=== PATIENT | male | born 1930 | race Caucasian/White ===

== ENCOUNTER 2016-11-02 08:58 | Inpatient (IN) | payer OTHER ==
[~2016-11-02] VITALS: Ht 172.7 cm; Wt 95.3 kg
[~2016-11-02 08:58] MED LIST: LEVAQUIN750 MG PO; PREDNISONE 20MG20 MG PO; ROBITUSSIN AC SY5 ML PO
--- NOTE | 2016-11-02 09:03 | NUR ---
PT PRESENTS TO ER C/O OF COUGH AND CONGESTION X 10 DAYS. PT STATES HE WAS SEEN BY PMD AND TREATED FOR PNA. PT STATES HE STILL IS NOT FEELING ANY BETTER
--- NOTE | 2016-11-02 09:24 | ED DYSPNEA/ASTHMA COMPLAINT ---
History of Present Illness General Chief Complaint: Upper Respiratory Sx/Fever Stated Complaint: COUGH AND CONGESTION X 10DAYS Source: patient, old records Exam Limitations: no limitations Reconcile Medications Cholecalciferol (Vitamin D3) (Vitamin D3) 1,000 UNIT CAPSULE 1,000 IU PO DAILY SUPPLEMENT (Reported) Levothyroxine Sodium 50 MCG TABLET 50 MCG PO DAILY THYROID (Reported) Lisinopril 40 MG TABLET 40 MG PO DAILY HTN (Reported) Tolterodine Tartrate (Detrol LA) 4 MG CAP.ER.24H 4 MG PO DAILY OVERACTIVE BLADDER (Reported) Warfarin Sodium 5 MG TABLET 5 MG PO DAILY "MY HEART" (Reported) Zolpidem Tartrate 10 MG TABLET 10 MG PO DAILY SLEEP (Reported) Triage Note: PT PRESENTS TO ER C/O OF COUGH AND CONGESTION X 10 DAYS. PT STATES HE WAS SEEN BY PMD AND TREATED FOR PNA. PT STATES HE STILL IS NOT FEELING ANY BETTER Triage Nurses Notes Reviewed? yes HPI: 85 YO MALE WITH HX OF AFIB, ON COUMADIN, PPM, 8W OF COUGH, SOB, TX FOR PNA AT ONSET OF SX 8W AGO. SINCE HE HAS HAD DRY COUGH, SOB, COUGH MEDS NO HELP. + SHIRLEY. NON SMOKER, NO CHEST PAIN. TACTILE FEVER. + WHEEZING. (BEVERLY HUNTLEY) Vital Signs & Intake/Output Vital Signs & Intake/Output Vital Signs Date Time Temp Pulse Resp B/P Pulse O2 O2 Flow FiO2 Ox Delivery Rate 11/02 1325 101.4 11/02 1321 100.9 83 18 138/108 11/02 1303 100.9 83 18 138/108 90 Room Air 11/02 1210 102.4 93 18 181/86 92 Nasal 2.0L Cannula 11/02 1209 102.4 11/02 1008 90 11/02 0936 86 Room Air 11/02 0904 98.9 120 24 144/80 86 Room Air Allergies Coded Allergies: Cephalosporins (Severe, RASH 11/02/16) amoxicillin (From Augmentin) (Severe, ANAPHYLAXIS 11/02/16) clavulanic acid (From Augmentin) (Severe, ANAPHYLAXIS 11/02/16) Penicillins (RASH 11/02/16) azithromycin (UNKNOWN 11/02/16) (KAL MIGUEL,GRACIE Newman) Past History Travel History Traveled to [place] past 21 day No Medical History Any Pertinent Medical History? see below for history Cardiovascular: AFIB, hypertension Pneumonia Vaccine: 07/29/04 Surgical History Surgical History: PPM Psychosocial History Who do you live with Spouse Services at Home None What is your primary language Yakut Tobacco Use: Never used Family History Hx Contributory? No (BEVERLY HUNTLEY) Review of Systems Review of Systems Constitutional: Reports: see HPI. EENTM: Reports: no symptoms. Respiratory: Reports: see HPI. Cardiovascular: Reports: no symptoms. GI: Reports: no symptoms. Genitourinary: Reports: no symptoms. Musculoskeletal: Reports: no symptoms. Skin: Reports: no symptoms. Neurological/Psychological: Reports: no symptoms. Hematologic/Endocrine: Reports: no symptoms. Immunologic/Allergic: Reports: no symptoms. All Other Systems: Reviewed and Negative (BEVERLY HUNTLEY) Physical Exam Physical Exam Respiratory: wheezing Comments: Well-developed well-nourished person in no acute distress HEENT: Normal EENT exam, extraocular motion intact, no nystagmus. Pupils equally round and reactive to light. Nose is atraumatic. Pharynx normal. No swelling or edema. Neck: Supple, no lymphadenopathy, normal range of motion without pain or tenderness Back: Nontender, no CVA tenderness. Full range of motion Cardiovascular: Regular rate and rhythms no murmurs, normal JVP Respiratory: Chest nontender. Mild tachypnea, decreased breath sounds, positive respiratory wheezing bilaterally Abdomen: Soft, nontender nondistended, no appreciable organomegaly. Normal bowel sounds. No ascites Extremity: 1+ lower extremity bilateral edema, no calf tenderness to palpation, normal and equal pulses. Neuro: Alert oriented x3, motor sensory normal, cranial nerves II through XII grossly intact. Skin: No appreciable rash on exposed skin, skin is warm and dry. Psych: Mood and affect is normal, memory and judgment is normal. Core Measures ACS in differential dx? Yes Severe Sepsis Present: Yes BC x2: Yes Lactic Acid x2: Yes IV ABX Broad Spectrum: Yes NS/LR Started: Yes Septic Shock Present: No (BEVERLY HUNTLEY) Progress Differential Diagnosis: asthma, AMI, altitude sickness, bronchitis, costochondritis, CHF, COPD, musculoskeletal pain, pericarditis, pulmonary embolism, pneumonia, pneumothorax, rib fracture, unstable angina Diagnostic Imaging: Viewed by Me: Radiology Read (INTEGUMENTARY). Discussed w/RAD: Radiology Read ( INTEGUMENTARY). CXR Impression: PATIENT: JUAN ANTONIO CARMONA PRESENT AGE: 85 PATIENT ACCOUNT NO: [id number] : 31 LOCATION: [facility] ORDERING PHYSICIAN: BEVERLY PERKINS SERVICE DATE: 11/02/16 EXAM TYPE: RAD - XRY-PORTABLE CHEST XRAY EXAMINATION: XR PORTABLE CHEST CLINICAL INFORMATION: Pneumonia COMPARISON: 10/10/2016 SHE IS NOW LIVING INTECHNIQUE: Portable view of the chest was obtained. FINDINGS: Right chest wall single-lead pacer remains unchanged. The lungs are well expanded. Increased hazy bibasilar opacity, right greater than left. Small right pleural effusion suspected. No edema. No pneumothorax. The cardiomediastinal silhouette is unchanged. Degenerative changes of the shoulders. IMPRESSION: Small right pleural effusion with increased hazy basilar opacities, right greater than left. This appearance could represent atelectasis or pneumonia. This is increased from prior. DICTATED BY: HORTENSIA MIGUEL,REECE DATE/TIME DICTATED:11/02/16957 INTRUSION ANALYST:СВЕТЛАНА DATE/TIME TRANSCRIBED:11/02/16957 Initial ED EKG: PACED , PVC'S, 86 BPM Rhythm Strip: PAC Comments: DuoNeb treatment given, blood cultures and lactic acid drawn. Patient reevaluated, breathing has improved, still with coughing and congestion and mild wheezing. His O2 sat is up to 90% on supplemental oxygen. He'll be given IV antibiotics, clindamycin as he has allergies to Rocephin and Zithromax, he is also given 125 mg of Cipro Medrol IV. He will require admission to the hospital for pneumonia/bronchitis, hypoxia (VITA PERKINS,BEVERLY) Plan of Care: Orders Procedure Date/time Status Heart Healthy Diet 11/02 D Active LOWER RESPIRATORY CULTURE 11/02 1219 Active LACTIC ACID 11/02 1212 Active MRSA SCREENING 11/02 1154 Active Admit to inpatient 11/02 1149 Active Misc Message 11/02 1147 Active ED Holding Orders 11/02 1147 Active Vital Signs 11/02 1147 Active Code Status 11/02 1147 Active RAPID VIRAL INFLUENZA A 11/02 1141 Complete Patient Data 11/02 1123 Active Add-on Test (ER Only) 11/02 1116 Active Add-on Test (ER Only) 11/02 1105 Active AEROSOL (GEN) 11/02 1008 Complete Intake & Output 11/02 0836 Active PROTHROMBIN TIME 11/02 0832 Complete TROPONIN LEVEL 11/02 929 Complete MAGNESIUM 11/02 929 Complete B-TYPE NATRIURETIC PEP (BNP) 11/02 929 Complete Saline Lock 11/02 911 Active BLOOD CULTURE 11/02 911 Active LACTIC ACID 11/02 911 Complete COMPREHENSIVE METABOLIC PANEL 11/02 911 Complete CBC WITHOUT DIFFERENTIAL 11/02 911 Complete EKG 11/02 905 Active Current Medications Sig/Emily Start time Last Medication Dose Stop Time Status Admin Warfarin Sodium 5 MG 1700 11/03 1700 AC (Coumadin) 11/03 1701 Levothyroxine Sodium 0.05 MG DAILY AC 11/03 0700 AC (Synthroid) Oxybutynin Chloride 5 MG BID 11/02 220 AC (Ditropan) Laboratory Tests 11/02/16 1238: Lactic Acid Pending 11/02/16 1105: PT 18.9 H, INR 1.81 H 11/02/16 0933: Troponin I Cancelled, Unk-X-Wtjgvfxedzx Pept Cancelled 11/02/16 0930: Anion Gap 14, Estimated GFR > 60, BUN/Creatinine Ratio 15.0, Glucose 126 H, Lactic Acid 2.1, Calcium 8.9, Magnesium 1.6, Total Bilirubin 0.8, AST 28, ALT 28 , Alkaline Phosphatase 62, Troponin I < 0.01, Nsu-Q-Jgeixieasbr Pept 1070 H, Total Protein 7.8, Albumin 4.3, Globulin 3.5, Albumin/Globulin Ratio 1.2, CBC w Diff NO MAN DIFF REQ, RBC 4.26 L, MCV 100.8 H, MCH 33.8 H, RDW 14.0, MPV 6.9 L, Gran % 66.4, Lymphocytes % 20.4 L, Monocytes % 9.1, Eosinophils % 3.7, Basophils % 0.4, Absolute Granulocytes 4.1, Absolute Lymphocytes 1.3, Absolute Monocytes 0.6, Absolute Eosinophils 0.2, Absolute Basophils 0, PUBS MCHC 33.5 Microbiology 11/02 1219 LOWER RESP: Respiratory Culture - ORD 11/02 1219 LOWER RESP: Gram Stain - ORD 11/02 1214 UPPER RESP: Surveillance Culture - RECD 11/02 1134 BLOOD: Blood Culture - RECD 11/02 1127 BLOOD: Blood Culture - RECD Comments: 11/02/2016 11:17:09 AM patient's case discussed with Dr. Barroso by me. Plan admission to telemetry in the patient's tachycardia upon presentation and frequent PVCs noted on EKG. Pneumonia versus congestive heart failure discussed. (KAL MIGUEL,GRACIE Newman) Departure Departure Disposition: STILL A PATIENT Condition: Stable Clinical Impression Primary Impression: Pneumonia Qualifiers: Pneumonia type: due to unspecified organism Laterality: right Lung location: lower lobe of lung Qualified Code: J18.9 - Pneumonia, unspecified organism Secondary Impressions: Bronchitis, Hypoxia Referrals: SARAH MIGUEL,JORI Landis (PCP/Family) Departure Forms: Customer Survey General Discharge Information Admission Note Spoke With: PAULINA SIMON MD Documentation of Exam: Documentation of any treatments & extenuating circumstances including Concerns Regarding Discharge (functional status, medication knowledge or non-compliance, living conditions, etc.) that warrant an admission rather than observation: Patient hypoxic, has been sick for approximately 8 weeks with cough and congestion, failed outpatient treatment requires admission, IV antibiotics, respiratory treatments, IV site Medrol, he has bronchitis and likely right lower lobe pneumonia. He has a slightly elevated lactic acid 2.1. He requires supplemental oxygen, he is a poor candidate for outpatient treatment. DW DR BOWDEN WHO CALLED FOR ADMISSION. (BEVERLY HUNTLEY) PA/DUB ROOM ENGINEER Co-Sign Statement Statement: ED Attending supervision documentation- [X] I saw and evaluated the patient. I have also reviewed all the pertinent lab results and diagnostic results. I agree with the findings and the plan of care as documented in the PA's/DUB ROOM ENGINEER's documentation. [] I have reviewed the ED Record and agree with the PA's/DUB ROOM ENGINEER's documentation. [] Additions or exceptions (if any) to the PAs/DUB ROOM ENGINEER's note and plan are summarized below: [] (KAL MIGUEL,GRACIE Newman) Critical Care Note Critical Care Note Critical Care Time: 30-74 min (40) (BEVERLY HUNTLEY)
--- NOTE | 2016-11-02 09:26 | NUR ---
RESP PAGED FOR TREATMENT AT THIS TIME
--- NOTE | 2016-11-02 09:41 | NUR ---
PT SITTING ON STRETCHER; RA SAT 84-86%. FREQUENT CONGESTED NON PRODUCTIVE COUGH NOTED. PT STATES THE PHLEGM SITS IN THE BACK OF HIS THROAT, "I GAG ON IT", BUT HE HAS BEEN UNABLE TO EXPECTORATE IT. STATES HE HAS HAD THESE SYMPTOMS X 3 WEEKS. ALSO C/O "ALL OVER BODY ACHES", DECREASED APPETITE/PO INTAKE AND INTERMITTENT FEVERS. LUNGS DIMINISHED IN ALL MOTLEY. PLACED ON 2L FOR COMFORT, SAT NOTED UP TO 96% AFTER COUGHING. PACER NOTED TO R TORSO. PACED ON MONITOR. IV EST, L WRIST. BLOODWORK SENT (LAV, SST, BLUE, TORRES, PINK) CHEST XRAY COMPLETED.
[2016-11-02 09:43] LABS: ABSOLUTE BASOPHIL COUNT 0 /CUMM (0.0-0.2); ABSOLUTE EOSINOPHIL COUNT 0.2 /CUMM (0.0-0.7); ABSOLUTE GRANULOCYTE CT 4.1 /CUMM (1.4-6.5); ABSOLUTE LYMPH COUNT 1.3 /CUMM (1.2-3.4); ABSOLUTE MONOCYTE COUNT 0.6 /CUMM (0.10-0.60); BASOPHIL % 0.4 % (0.0-2.0); EOSINOPHIL % 3.7 % (0-5); GRANULOCYTE % 66.4 % (42.2-75.2); MEAN CORPUSCULAR HGB 33.8 PG (27.0-31.0); MEAN CORPUSCULAR HGB CONC 33.5 G/DL (33.0-37.0); MEAN CORPUSCULAR VOLUME 100.8 FL (80.0-94.0); MEAN PLATELET VOLUME 6.9 FL (7.4-10.4); PLATELET COUNT 206 /CUMM (130-400); RED BLOOD CELL CT 4.26 /CUMM (4.70-6.10); WHITE BLOOD CELL COUNT 6.2 /CUMM (4.8-10.8)
--- NOTE | 2016-11-02 09:43 | NUR ---
NORMAL SALINE INITIATED, LESS THAN 100 ML INFUSED AND THEN D/ERICKA PER GREGORIO Jimenes IV HEPLOCKED AT THIS TIME.
--- NOTE | 2016-11-02 09:44 | NUR ---
RT PAGED FOR JIHAN CHOWDARY.
[2016-11-02] MEDS ORDERED: LEVOTHYROXINE50 MCG PO (09:49)
[2016-11-02] MEDS ORDERED: WARFARIN SODIUM5 M1 PO (09:49)
[2016-11-02] MEDS ORDERED: ZOLPIDEM TARTRA10 M1 PO (09:50)
[2016-11-02] MEDS ORDERED: DETROL LA4 M1 PO (09:51)
[2016-11-02] MEDS ORDERED: LISINOPRIL40 M1 PO (09:51)
[2016-11-02] MEDS ORDERED: VITAMIN D31000 UNI1 PO (09:53)
--- NOTE | 2016-11-02 09:53 | NUR ---
PER LAB, BLUE TOP AND SST NEED RE-DRAWS.
--- NOTE | 2016-11-02 10:04 | RADIOLOGY REPORT ---
EXAMINATION: XR PORTABLE CHEST CLINICAL INFORMATION: Pneumonia COMPARISON: 10/10/2016 TECHNIQUE: Portable view of the chest was obtained. FINDINGS: Right chest wall single-lead pacer remains unchanged. The lungs are well expanded. Increased hazy bibasilar opacity, right greater than left. Small right pleural effusion suspected. No edema. No pneumothorax. The cardiomediastinal silhouette is unchanged. Degenerative changes of the shoulders. IMPRESSION: Small right pleural effusion with increased hazy basilar opacities, right greater than left. This appearance could represent atelectasis or pneumonia. This is increased from prior.
--- NOTE | 2016-11-02 10:09 | NUR ---
RT AT THE BEDSIDE
--- NOTE | 2016-11-02 10:35 | NUR ---
SAT NOW 96% ON 2L. PT STATES THE BREATHING TX HELPED HIM AND HE IS COMFORTABLE NOW. FLUIDS INFUSING, 1ST LITER BOLUS, PER GREGORIO Thompson FOR ELEVATED LACTIC ACID (2.1)
[2016-11-02 11:27] LABS: PT 18.9 SEC (9.4-12.5)
--- NOTE | 2016-11-02 11:29 | NUR ---
FIRST SET OF BC DRAWN AND SENT TO LAB
--- NOTE | 2016-11-02 11:37 | NUR ---
BOTH SETS BC RECEIVED BY LAB.
--- NOTE | 2016-11-02 11:45 | NUR ---
MED WITH SOLU MEDROL AND CLINDAMYCIN PER MAR HOUSE STAFF AT BEDSIDE
--- NOTE | 2016-11-02 12:09 | History & Physical ---
ISELA BUTLER 11/02/16 1209: General Information and HPI MD Statement: I have seen and personally examined JUAN ANTONIO CARMONA and documented this H&P. The patient is a 85 year old M who presented with a patient stated chief complaint of [cough and difficulty breathing]. Source of Information: patient, old records Exam Limitations: patient was coughing throughout the interview History of Present Illness: Patient is 85 year old with PMH of HTN, ablation on Coumadin, permanent pacemaker came from home with chief complaint of difficulty breathing and cough. Patient states that the cough began 8 weeks ago, he went to his primary care physician Dr. messer and was given 5 day azithromycin prescription. Patient states that he felt no improvement after that and his cough worsened. Cough is dry, occurs in bouts, worsens with speaking. patient also reports that he experiences chills and fever although he did not measure it at home. Patient lives with his son who has similar complaints from the same time duration. Patient received a flu shot this season. He is a nonsmoker, has never been intubated. Recent echo from 2016 shows ejection fraction greater than 65%, patient follows Dr. Fox as his garnishment specialist his next appointment is due in 3 weeks. Review of systems negative Allergies/Medications Allergies: Coded Allergies: amoxicillin (From Augmentin) (Severe, ANAPHYLAXIS 11/02/16) clavulanic acid (From Augmentin) (Severe, ANAPHYLAXIS 11/02/16) Penicillins (RASH 11/02/16) Home Med list Cholecalciferol (Vitamin D3) (Vitamin D3) 1,000 UNIT CAPSULE 1,000 IU PO DAILY SUPPLEMENT (Reported) Levothyroxine Sodium 50 MCG TABLET 50 MCG PO DAILY THYROID (Reported) Lisinopril 40 MG TABLET 40 MG PO DAILY HTN (Reported) Tolterodine Tartrate (Detrol LA) 4 MG CAP.ER.24H 4 MG PO DAILY OVERACTIVE BLADDER (Reported) Warfarin Sodium 5 MG TABLET 5 MG PO DAILY "MY HEART" (Reported) Zolpidem Tartrate 10 MG TABLET 10 MG PO DAILY SLEEP (Reported) Compliance With Home Meds: GOOD Past History Travel History Traveled to [place] past 21 day No Medical History Cardiovascular: AFIB, hypertension, PPM Pneumonia Vaccine: 07/29/04 Surgical History Surgical History: PPM Past Family/Social History Family History Relations & Conditions if any MOTHER *No pertinent family history Relation not specified for: FH: hypertension Psychosocial History Where do you live? Home Who Do You Live With? child Services at Home: None Smoking Status: Former Smoker ETOH Use: occasional use Illicit Drug Use: denies illicit drug use Power of Clin Nurse Spec/HCP? yes Name of POA/HCP: SON Functional Ability ADLs Independent: dressing, eating, toileting, bathing. Ambulation: independent Review of Systems Review of Systems Constitutional: Reports: see HPI. Cardiovascular: Reports: see HPI. Respiratory: Reports: see HPI. GI: Denies: see HPI, abdominal pain, bloating, constipation, diarrhea, distention, bowel incontinence, melena, nausea, bloody stool, changes in stool, vomiting, steatorrhea. Genitourinary: Reports: see HPI. Exam & Diagnostic Data Last 24 Hrs of Vital Signs/I&O Vital Signs Date Time Temp Pulse Resp B/P Pulse O2 O2 Flow FiO2 Ox Delivery Rate 11/02 1210 102.4 93 18 181/86 92 Nasal 2.0L Cannula 11/02 1209 102.4 11/02 1008 90 11/02 0936 86 Room Air 11/02 0904 98.9 120 24 144/80 86 Room Air Physical Exam General Appearance Alert, Oriented X3, Cooperative, Mild Distress Skin No Rashes, No Breakdown HEENT Atraumatic Cardiovascular Normal S1, Normal S2, TACHYCARDIAC Lungs DEC BREATH SOUNDS RIGHT LUNG BASE Abdomen Soft, No Tenderness Extremities LOWER EXT NON PITTING EDEMA Last 24 Hrs of Labs/Lokesh: Laboratory Tests 11/02/16 1105: PT 18.9 H, INR 1.81 H 11/02/16 0933: Troponin I Cancelled, Atp-C-Nmscgsdcgsa Pept Cancelled 11/02/16 0930: Anion Gap 14, Estimated GFR > 60, BUN/Creatinine Ratio 15.0, Glucose 126 H, Lactic Acid 2.1, Calcium 8.9, Magnesium 1.6, Total Bilirubin 0.8, AST 28, ALT 28 , Alkaline Phosphatase 62, Troponin I < 0.01, Iks-U-Nfupaawobhn Pept 1070 H, Total Protein 7.8, Albumin 4.3, Globulin 3.5, Albumin/Globulin Ratio 1.2, CBC w Diff NO MAN DIFF REQ, RBC 4.26 L, MCV 100.8 H, MCH 33.8 H, RDW 14.0, MPV 6.9 L, Gran % 66.4, Lymphocytes % 20.4 L, Monocytes % 9.1, Eosinophils % 3.7, Basophils % 0.4, Absolute Granulocytes 4.1, Absolute Lymphocytes 1.3, Absolute Monocytes 0.6, Absolute Eosinophils 0.2, Absolute Basophils 0, PUBS MCHC 33.5 Microbiology 11/02 1219 LOWER RESP: Respiratory Culture - ORD 11/02 1219 LOWER RESP: Gram Stain - ORD 11/02 1214 UPPER RESP: Surveillance Culture - RECD 11/02 1134 BLOOD: Blood Culture - RECD 11/02 1127 BLOOD: Blood Culture - RECD Assessment/Plan Assessment: Patient is 85 year old male with PMH of hypertension, atrial fibrillation on Coumadin, permanent pacemaker came with a chief complaint of difficulty breathing and cough. Patient was given azithromycin 8 weeks ago by his primary care physician for a possible pneumonia. Patient has been febrile at home and experienced chills. His son is having similar complaints since the same time duration. Vitals Fever of 1 at 2.4, pulse 93, respiratory rate 18, blood pressure 181/86, pulse ox 92 on 2 L of nasal cannula Labs WBC 6.2, no bands, hemoglobin 14.4, platelets 206, sodium 136, potassium 4.3, creatinine 0.6, lactic acid 2.1, proBNP 1070 CXR Small right pleural effusion with increased hazy basilar opacities, right greater than left. This appearance could represent atelectasis or pneumonia. This is increased from prior. Assessment and plan, Will admit patient to telemetry floor for continus monitoring. Ceftriaxone and Azithroymine for his CAP, patient has tolerated Ceftriaxone and Azithromycin in the past Will obtain non contrast Chest CT and consult battery assembler as patients right sided pleural effusion is concerning for possible parapneumonic effision/ empyema. INR sub therapeutic today, will hold Warfarin for now as patient might need a pleural tap. Will obtain BC x2, lower resp culture, urine for strep and legionella antigen TRC nebs as needed. Patient does not have any prior dx of COPD so will hold off solumedrol. DVT ppx ALPS Pain pathyway mild tylenol, moderate toradol, severe 1 mg morphine q8 prn Patient is full code As Ranked By This Provider Problem List: 1. Pneumonia Qualifiers Pneumonia type: due to unspecified organism Laterality: right Lung location: lower lobe of lung Qualified Code: J18.9 - Pneumonia, unspecified organism Core Measures/Miscellaneous Acute Coronary Syndrome ACS Diagnosis: No Cerebrovascular Accident CVA/TIA Diagnosis: No Congestive Heart Failure CHF Diagnosis: No Venous Thromboembolism VTE Risk Factors: Age > 40 VTE Prophylaxis Ordered Inpt: Mechanical (ALPS/TEDS) No Mech VTE prophylaxis d/t: No contraindications No VTE Pharm Prophylaxis d/t: No contraindications VTE Diagnosis: No VTE Type: NONE VTE Confirmed by (Test): NONE Severe Sepsis Severe Sepsis Present: No Septic Shock Septic Shock Present: No Miscellaneous Documentation Attending Case Discussed With: Dr. Coby Dugan Primary Care Physician: JORI SMITH MD A Patient sees these Specialists as above Level of Patient Care: Telemetry COBY MALIK MD 11/02/16 1507: Attending MD Review Statement Attending Statement Attending MD Statement: examined this patient, discuss w/resident/PA/INFORMATION SYSTEMS CONSULTANT, agreed w/resident/PA/INFORMATION SYSTEMS CONSULTANT, discussed with family, discussed with nursing, discussed with case mgmt Attending Assessment/Plan: 85-year-old male past medical history of A. fib on Coumadin, pacemaker home for saw Dr. Smith his PCP on October 10 with cough and URI symptoms. At that point a chest x-ray was done which showed small right pleural effusion and he was prescribed a 5 day course of Zithromax. His symptoms have gotten progressively worse and he is coughing up a lot of stuff. Today he also has acute hypoxemic respiratory failure with a room air sat of 84-86%. His chest x-ray still shows the small effusions especially on the right-hand side. I am concerned and I hope this is not a parapneumonic effusion. My suspicion for empyema is low. We will give him IV ceftriaxone and Zithromax. He is tolerated cephalosporins fine in the past. We'll get blood cultures, sputum cultures, pneumococcal antigen in his urine and strep pneumo antigen. I will have pulmonary see him. And get a noncontrast chest CT to further clarify his effusion. If the effusion doesn't show anything that needs to be tapped I will continue his Coumadin. Will follow -up.
--- NOTE | 2016-11-02 12:09 | NUR ---
FLU SWAB SENT. MED WITH MUCINEX, TESSLON PEARLES AND TYLENOL PER DEC (TEMP 102.4) REMAINS 94% ON 2L. DENIES PAIN.
--- NOTE | 2016-11-02 12:17 | NUR ---
MRSA SWAB SENT. SAT 93% ON 2L.
--- NOTE | 2016-11-02 13:22 | NUR ---
PT MEDICATED WITH LICINOPRIL PER EMAR. TEMP 101.4 AT THIS TIME. MD ISELA PAGED. FOOD ORDERED FOR PT.
--- NOTE | 2016-11-02 14:01 | Admission Certification ---
Admission Certification Certification Statement - As attending physician, I certify that at the time of - admission, based on clinical presentation, severity of - symptoms, need for further diagnostic testing and - therapeutic interventions, and risk of adverse outcomes - without in-hospital treatment, in my clinical assessment, - this patient requires an acute hospital stay for a minimum - of two nights or longer. I have also considered psychsocial - factors such as support system, advanced age, financial - issues, cognitive issues, and failed out-patient treatments, - past re-admission history, safety of patient, and lack of - compliance as applicable. Specific rationale supporting this admission is: Fever and acute hypoxemic respiratory failure, failed outpatient oral antibiotics.
--- NOTE | 2016-11-02 14:01 | NUR ---
PT INFORMED URINE SAMPLE IS NEEDED WHEN ABLE. URINAL PROVIDED.
--- NOTE | 2016-11-02 14:16 | NUR ---
PT TO CAT SCAN BY STRETCHER.
--- NOTE | 2016-11-02 14:49 | CT SCAN REPORT ---
EXAMINATION: CT CHEST WITHOUT CONTRAST CLINICAL INFORMATION: A 5-year-old male with difficulty breathing. Evaluate for parapneumonic effusion. COMPARISON: None. TECHNIQUE: Multidetector volumetric CT imaging of the chest was performed without intravenous contrast. Axial MIP volume rendering provided. Sagittal and coronal reformatted images were obtained. DLP: 537.43 mGy-cm. FINDINGS: LEAD OXIDE MILL TENDER: Single lead right-sided pacemaker is identified. Right pleural effusion with associated right lower lobe airspace disease is noted. Left lung appears grossly clear. LUNGS: The central airways are patent. There is no focal consolidation, mass or suspicious pulmonary nodule identified. Tree-in-bud opacities are seen within the right upper lobe (images 25-28, series 3). Mild atelectasis is noted at the left lung base. There is a small to moderate right pleural effusion resulting in compressive atelectasis of the right lower lobe. No pneumothorax. MEDIASTINUM: Ascending thoracic aorta is mildly ectatic measuring 4.0 cm at the main pulmonary artery. Mild four-chamber cardiomegaly. Coronary artery calcifications are noted. Trace pericardial effusion. No mediastinal lymphadenopathy. Subcentimeter mediastinal lymph nodes are noted. AXILLA: No lymphadenopathy. UPPER ABDOMEN: Grossly unremarkable. OSSEOUS STRUCTURES: There are no aggressive osseous lesions. Old, healed anterior left 6 and seventh rib fractures. Degenerative changes are seen within the thoracic spine. IMPRESSION: 1. Tree-in-bud opacities within the right upper lobe suggesting small airways disease. 2. Small to moderate right pleural effusion resulting in compressive atelectasis of the right lower lobe.
--- NOTE | 2016-11-02 14:51 | NUR ---
BACK FROM CT SCAN SITTING UP EATING SOUP AT THIS TIME MED WITH ROCEPHIN PER DEC. PER MOD, PT HAS RECEIVED THIS MEDICATION IN THE PAST AND HAS NOT HAD ANY REACTIONS. DAUGHTER AT BEDSIDE STATES PT HAS REACTION TO PCN BUT THAT IS ALL. MED INFUSING SLOWLY AT THIS TIME. MED WITH TYLENOL PER DEC/MOD FOR TEMP. URINE SAMPLE SENT.
--- NOTE | 2016-11-02 15:10 | Event Note ---
Event Note Event Note: Patient refused to stool Guiac. Will go ahead and start heprin drip. Attending notified.
--- NOTE | 2016-11-02 15:13 | NUR ---
PT REQUESTING ANOTHER DOSE OF TESSLON PEARLES. SPOKE WITH MOD REGARDING SAME, OK TO GIVE ANOTHER DOSE AT THIS TIME. MED WITH SAME. ROCEPHIN INFUSING WITHOUT ANY S/S REACTIONS AT THIS TIME PT STATING HE WILL TRY TO SLEEP FOR A LITTLE WHILE. DENIES NEEDING ANYTHING AT THIS TIME,. REPORT GIVEN TO SANJAY GARCIA.
--- NOTE | 2016-11-02 15:47 | NUR ---
ASSUMED CARE OF THIS PATIENT REPORT RECEIVED FROM SANJAY ABEL IV ROCEPHIN INFUSION COMPLETED, IV ZITHROMAX INFUSION INITIATED. ALLERGIES UPDATED PER DAUGHTER AND PATIENT. PT REPORTS IMPROVED LEVEL OF COUGHING SINCE BEING GIVEN THE COUGH MEDICINE. TEMP IMPROVED 99.9 REMAINS ON CM, PACED COMPLAINS ONLY OF HEADACHE PAIN AT THIS TIME WILL CONTINUE TO MONITOR.
--- NOTE | 2016-11-02 15:50 | NUR ---
DR HOWARD AT BEDSIDE
--- NOTE | 2016-11-02 15:58 | NUR ---
HEART HEALTHY MEAL TRAY PROVIDED TO PATIENT
--- NOTE | 2016-11-02 16:39 | Cons- Pulmonary ---
General Information and HPI Consulting Request Date of Consult: 11/02/16 Requested By: michelle Reason for Consult: Abnormal chest x-ray History of Present Illness: Patient is an 85-year-old gentleman with a history of heart disease status post pacemaker placement on Coumadin. Admitted for increasing shortness of breath cough and hypoxia. Patient has had a cough over the past 6 or more weeks a chest x-ray done in early September suggested a small right pleural effusion patient reportedly was treated with a course of antibiotics. He has had worsening cough shortness of breath and fever and chills as well as admitted with temperature 102 reduced oxygen saturations and chest x-ray showing increased right sided density likely related to effusion. He's had no sputum or hemoptysis he denies chest pain. He has been on Coumadin and denies lower extremity swelling or pain. He has no pleuritic chest pain. Allergies/Medications Allergies: Coded Allergies: amoxicillin (From Augmentin) (Severe, ANAPHYLAXIS 11/02/16) clavulanic acid (From Augmentin) (Severe, ANAPHYLAXIS 11/02/16) Penicillins (RASH 11/02/16) Home Med List: Cholecalciferol (Vitamin D3) (Vitamin D3) 1,000 UNIT CAPSULE 1,000 IU PO DAILY SUPPLEMENT (Reported) Levothyroxine Sodium 50 MCG TABLET 50 MCG PO DAILY THYROID (Reported) Lisinopril 40 MG TABLET 40 MG PO DAILY HTN (Reported) Tolterodine Tartrate (Detrol LA) 4 MG CAP.ER.24H 4 MG PO DAILY OVERACTIVE BLADDER (Reported) Warfarin Sodium 5 MG TABLET 5 MG PO DAILY "MY HEART" (Reported) Zolpidem Tartrate 10 MG TABLET 10 MG PO DAILY SLEEP (Reported) Review of Systems Review of Systems Constitutional: Reports: chills, fever. Cardiovascular: Denies: chest pain, syncope. Respiratory: Reports: cough, short of breath. Denies: hemoptysis, sputum production. Past History Travel History Traveled to [place] past 21 day No Medical History Cardiovascular: AFIB, hypertension, PPM Surgical History Surgical History: PPM Family History Relations & Conditions If Any: MOTHER *No pertinent family history Relation not specified for: FH: hypertension Psychosocial History Where Do You Live? Home Who Do You Live With? 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 Ambulation: independent Exam & Diagnostic Data Last 24 Hrs of Vital Signs/I&O Vital Signs Date Time Temp Pulse Resp B/P Pulse O2 O2 Flow FiO2 Ox Delivery Rate 11/02 1542 94 Nasal 2.0L Cannula 11/02 1537 99.9 11/02 1532 99.9 71 20 123/57 93 Nasal 2.0L Cannula 11/02 1451 101.4 11/02 1325 101.4 11/02 1322 101.4 11/02 1321 100.9 83 18 138/108 11/02 1303 100.9 83 18 138/108 90 Room Air 11/02 1210 102.4 93 18 181/86 92 Nasal 2.0L Cannula 11/02 1209 102.4 11/02 1008 90 11/02 0936 86 Room Air 11/02 0904 98.9 120 24 144/80 86 Room Air Intake & Output 11/02 1600 11/02 0800 11/02 0000 Intake Total 1100 Output Total Balance 1100 Intake, IV 1100 Oxygen saturation on 2 L 94% temperature is 99.9 HEENT exam shows no jugular venous distention or adenopathy exam his chest shows dullness over the right posterior chest there are diminished breath sounds and evidence of egophony. The left chest is clear. No rubs heard. Cardiac exam shows a regular S1 and S2 without murmurs abdominal exam is soft nontender extremities have symmetrical 1+ edema there is no calf tenderness or Homans sign. Last 48 Hrs of Labs/Lokesh: Laboratory Tests 11/02/16 1433: Acetaminophen Cancelled 11/02/16 1238: Lactic Acid 1.9 11/02/16 1105: PT 18.9 H, INR 1.81 H 11/02/16 0933: Troponin I Cancelled, [id number]-Q-Hocbsyxmesm Pept Cancelled 11/02/16 0930: Anion Gap 14, Estimated GFR > 60, BUN/Creatinine Ratio 15.0, Glucose 126 H, Lactic Acid 2.1, Calcium 8.9, Magnesium 1.6, Total Bilirubin 0.8, AST 28, ALT 28 , Alkaline Phosphatase 62, Troponin I < 0.01, [id number] Pept 1070 H, Total Protein 7.8, Albumin 4.3, Globulin 3.5, Albumin/Globulin Ratio 1.2, Vitamin B12 Pending, Folate Pending, CBC w Diff NO MAN DIFF REQ, RBC 4.26 L, MCV 100.8 H, MCH 33.8 H, RDW 14.0, MPV 6.9 L, Gran % 66.4, Lymphocytes % 20.4 L, Monocytes % 9.1, Eosinophils % 3.7, Basophils % 0.4, Absolute Granulocytes 4.1, Absolute Lymphocytes 1.3, Absolute Monocytes 0.6, Absolute Eosinophils 0.2, Absolute Basophils 0, PUBS MCHC 33.5 Microbiology 11/02 1443 URINE ROUT: Legionella Antigen - COMP 11/02 1443 URINE ROUT: Streptococcus pneumoniae Antigen (M - COMP Assessment/Plan Impression/Plan: 85-year-old gentleman with underlying heart disease has had persistent symptoms over the past month or so with a graphic evidence of increasing pleural effusion. CT scan today showed evidence of a moderately sized layering right pleural effusion. Hounsfield numbers do not suggest that this is an empyema. There is an infiltrate with air bronchograms in the right lower lobe thought to represent compression atelectasis as well as areas of tree-in-bud in the right upper lobe. Patient remains febrile with normal white count without evidence of left shift. Differential diagnosis includes pneumonia with parapneumonic effusion. Increased effusion secondary to heart disease with elevated BMP and atelectasis causing fever. Pulmonary embolism though consideration appears to be less likely in view of his chronic anticoagulation though his INR is subtherapeutic. If above studies studies are negative recommend d-dimer and if abnormal CTA Recommendations: Diagnostic and therapeutic thoracentesis. Sent for routine, pH and cytology as well as cultures. Consider mild negative fluid balance with elevated BNP and edema. If fluid is a transudate would obtain cardiac ultrasound to better understand the etiology of the effusion. Anaprox can be continued pending review of thoracentesis Consult Acknowledgment - Thank you for your consult request.
--- NOTE | 2016-11-02 16:59 | NUR ---
CALLED LAB, [facility] AVAILABLE FROM [facility], TYPE AND SCREEN TO BE AN ADD ON AND NOT NEW STICK FOR PT. RN NOTIFIED
--- NOTE | 2016-11-02 17:34 | NUR ---
[facility] HEMOLYZED PER LAB, SANJAY GARCIA AND MST WENDY NOTIFIED
--- NOTE | 2016-11-02 17:48 | NUR ---
[facility] DRAWN AND SENT TO LAB.
--- NOTE | 2016-11-02 18:42 | NUR ---
LAB AT BEDSIDE FOR CONFIRMATION TUBE
[2016-11-02 20:26] VITALS: BP 141/60
--- NOTE | 2016-11-02 20:32 | NUR ---
IPOC DOCUMENTATION INITIATED AT THIS TIME.
--- NOTE | 2016-11-02 20:50 | NUR ---
RIKI FROM [facility] AT BEDSIDE FOR NEB TREATMENT
--- NOTE | 2016-11-02 21:27 | NUR ---
MEDICATED WITH 22:00 MEDS PER ORDERS (DITROPAN, MUCINEX AND TESSLON PEARLS)
--- NOTE | 2016-11-02 22:00 | NUR ---
PT MOVED TO [facility] RM 21 REPORT GIVEN TO [address]
--- NOTE | 2016-11-02 23:14 | NUR ---
ALERT AND ORIENTED X 3. 2 L NC, NONPRODUCTIVE COUGH. NPO AT 0000. REQUESTED ACETAMENIPHIN FOR HEADACHE. ADMINISTERED OREDERED.
--- NOTE | 2016-11-03 03:57 | NUR ---
PT AWAKE AT 0200 SL CONFUSED URINATED ON FLOOR MONITOR SINUS OCCAS FATOU TO 40 BPM, BRIEF EPISODES. LOUD NONPRODUCTIVE COUGH. WILL CONT TO MONITOR VTE IN PLACE.
[2016-11-03 06:15] LABS: ABSOLUTE BASOPHIL COUNT 0 /CUMM (0.0-0.2); ABSOLUTE EOSINOPHIL COUNT 0 /CUMM (0.0-0.7); ABSOLUTE GRANULOCYTE CT 3.1 /CUMM (1.4-6.5); ABSOLUTE LYMPH COUNT 0.8 /CUMM (1.2-3.4); ABSOLUTE MONOCYTE COUNT 0.3 /CUMM (0.10-0.60); BASOPHIL % 0 % (0.0-2.0); EOSINOPHIL % 0 % (0-5); MEAN CORPUSCULAR HGB CONC 33.6 G/DL (33.0-37.0); MEAN PLATELET VOLUME 6.8 FL (7.4-10.4); PLATELET COUNT 161 /CUMM (130-400); PT 15.4 SEC (9.4-12.5); RBC DISTRIBUTION WIDTH 14.3 % (11.5-14.5); RED BLOOD CELL CT 3.67 /CUMM (4.70-6.10); WHITE BLOOD CELL COUNT 4.2 /CUMM (4.8-10.8)
[2016-11-03 06:27] VITALS: BP 134/68
[2016-11-03 06:29] LABS: HEMATOCRIT 37.1 % (42-52)
--- NOTE | 2016-11-03 07:14 | PN- Housestaff ---
ERVIN HONEYCUTT 11/03/16 0714: Subjective Follow-up For: 1. Community-acquired pneumonia 2. Acute hypoxic respiratory failure 3. Possible parapneumonic effusion Complaints: pain scale (0-10) Tele-Events Since Last Visit: no Acute events overnight Subjective: Patient was seen and examined this morning. He is alert awake and oriented to time place and person. No acute events monitored overnight. He remained afebrile. He does report worsening shortness of breath on exertion, dry cough, congestion of lungs. Denied any chest pain or pressure, racing of heart, headache, dizziness or lightheadedness. No change in bladder or bowel habits. Vitals remained afebrile. Heart rate 64, respiratory rate 22, blood pressure 134/68, saturating at 93% on 2 L oxygen Patient is waiting for thoracocentesis to be done this afternoon. Review of Systems Constitutional: Denies: see HPI. Objective Last 24 Hrs of Vital Signs/I&O Vital Signs Date Time Temp Pulse Resp B/P Pulse O2 O2 Flow FiO2 Ox Delivery Rate 11/03 1432 100.1 11/03 1227 86 146/70 11/03 1200 100.1 86 20 146/70 93 Nasal 3.0L Cannula 11/03 0825 93 Nasal 3.0L Cannula 11/03 06 99.7 64 22 134/68 93 Nasal Cannula 11/02 2029 95 Nasal 2.0L Cannula 11/02 202 60 20 141/60 95 Nasal 2.0L Cannula 11/02 2021 95 Nasal 2.0L Cannula 11/02 2010 98.9 63 20 141/60 94 Nasal 2.0L Cannula 11/02 1911 Nasal 2.0L Cannula 11/02 1542 94 Nasal 2.0L Cannula 11/02 1537 99.9 11/02 1532 99.9 71 20 123/57 93 Nasal 2.0L Cannula Intake & Output 11/03 1600 11/03 0800 11/03 0000 Intake Total 480 Output Total Balance 480 Intake, Oral 480 Patient 95.254 kg Weight Physical Exam General Appearance: Alert, Oriented X3, Cooperative, No Acute Distress Skin: No Rashes, No Breakdown HEENT: Atraumatic, Mucous Membr. moist/pink Neck: Supple, No JVD Lymphatic: Cervical nl Cardiovascular: Normal S1, Normal S2 Lungs: decresed air entry Abdomen: Normal Bowel Sounds, Soft, No Tenderness Extremities: No Clubbing, No Cyanosis, No Edema Vascular: Normal Pulses Current Medications: Current Medications Sig/Emily Start time Last Medication Dose Route Stop Time Status Admin Acetaminophen 0 .STK-MED ONE 11/03 1427 DC PO Acetaminophen 0 .STK-MED ONE 11/02 2246 DC PO Acetaminophen 650 MG Q8P PRN 11/02 1545 AC 11/02 PO 2249 Acetaminophen 650 MG Q8P PRN 11/02 1445 AC 11/03 PO 1432 Albuterol Sulfate 3 ML BID 11/02 2200 AC 11/03 INH 0825 Azithromycin 500 MG DAILY 11/02 1349 AC 11/03 Sodium Chloride 250 ML IV 1227 Benzonatate 100 MG TID 11/02 1144 AC 11/03 PO 1227 Ceftriaxone Sodium 1,000 MG DAILY 11/02 1349 AC 11/03 IV 1227 Guaifenesin 600 MG Q12 11/02 1140 AC 11/03 PO 1227 Ketorolac 15 MG Q8P PRN 11/02 1545 DC Tromethamine IV Levothyroxine Sodium 0.05 MG DAILY AC 11/03 0700 AC 11/03 PO 1227 Lisinopril 40 MG DAILY 11/02 1245 AC 11/03 PO 1227 Morphine Sulfate 1 MG Q8P PRN 11/02 1545 AC IV Oxybutynin Chloride 5 MG BID 11/02 2200 AC 11/03 PO 1227 Warfarin Sodium 6 MG COUMADIN 1700 ONE 11/03 1700 AC PO 11/03 1701 Last 24 Hrs of Lab/Lokesh Results Last 24 Hrs of Labs/Mics: Laboratory Tests 11/03/16 1130: Pleural pH 7.35 11/03/16 1130: Fluid WBC 571 H, Fld Mesothelial Cells 26, Fld Total RBCs Counted 328 H 11/03/16 1130: Lymphocytes 73, Misc Hematology Test 1, Phlebotomy Draw Site RT THORA, Fluid Glucose 141, Fluid Total Protein 3.3, Fluid Albumin 1.6, Fluid LDH 198, Fluid Amylase < 30 11/03/16 0600: Anion Gap 10, Estimated GFR > 60, BUN/Creatinine Ratio 20.0, Lactate Dehydrogenase 455, Total Protein 6.7, Albumin 3.5, PT 15.4 H, INR 1.47 H, CBC w Diff NO MAN DIFF REQ, RBC 3.67 L, MCV 101.0 H, MCH 34.0 H, RDW 14.3, MPV 6.8 L, Gran % 74.0, Lymphocytes % 20.0 L, Monocytes % 6.0, Eosinophils % 0, Basophils % 0 L, Absolute Granulocytes 3.1, Absolute Lymphocytes 0.8 L, Absolute Monocytes 0.3, Absolute Eosinophils 0, Absolute Basophils 0, PUBS MCHC 33.6 Microbiology 11/03 1130 BODY FLUID: Body Fluid Culture - RECD 11/03 1129 BODY FLUID: Gram Stain - RECD Assessment/Plan Assessment: This is a 85-year-old male with past medical history significant for atrial fibrillation on warfarin 5 mg, status post permanent pacemaker placement, insomnia, overactive bladder, hypertension, hypothyroidism presented to [facility] emergency department with chief complaint of fever, dry cough, congestion, shortness of breath on exertion, wheezing for 10 days. Of note patient has been to her primary care doctor On October 10 for fever, cough and chest x-ray was done which showed right sided plural effusion and he was sent home on oral antibiotics-5 days of oral azithromycin. However patient still has ongoing dry cough not associated with any sputum production and lung congestion for 10 days. No relief with antibiotics and cough suppressants. Also complains shortness of breath on exertion associated with wheezing. No orthopnea and paroxysmal nocturnal dyspnea. No chest pain, racing of heart, hemoptysis. He denies any smoking. Vitals on Admission-febrile 102.4, tachycardic 120, respiratory rate 24, blood pressure 120/57, saturating at 93% on 2 L. Pertinent labs on admission-WBC 6.2, H&H normal. BEP normal. INR 1.81. First set of troponins were negative. ProBNP 1070. CXR Small right pleural effusion with increased hazy basilar opacities, right greater than left. This appearance could represent atelectasis or pneumonia. chestCT 1. Tree-in-bud opacities within the right upper lobe suggesting small airways disease. 2. Small to moderate right pleural effusion resulting in compressive atelectasis of the right lower lobe. EKG-paced rhythm, PACs, PVCs, 86 bpm. Problem list 1. Community-acquired pneumonia 2. Acute hypoxic respiratory failure 3. Possible parapneumonic effusion 4. Hypothyroidism 5. Hypertension 6. Overactive bladder 7. Atrial fibrillation 8. Insomnia Community-acquired pneumonia Patient presented with fever 102, dry cough, congested lungs, shortness of breath on exertion, wheezing. Of note he failed outpatient treatment for pneumonia 2 weeks ago. He is not on home oxygen. Denies smoking. Normal leukocyte count. Chest x-ray showed small right-sided pleural effusion with increased hazy basilar opacities atelectasis versus pneumonia. CAT scan chest showed right-sided pleural effusion with compressive atelectasis of right lower lobe. -Admitted to telemetry floor for further monitoring -Monitor vitals every shift -Maintain oxygen saturations above 92% -provide supplemental oxygen -Monitor closely for fever, leukocytosis, worsening shortness of breath. -IV antibiotics ceftriaxone and azithromycin -Follow-up blood culture, sputum culture -Follow-up urine pneumococcal and streptococcal antigen- negative. -Total respiratory care Acute hypoxic respiratory failure Patient presented with shortness of breath on exertion. Of note patient is not on oxygen at home. He desaturated to 84-86% on room air requiring supplemental oxygen. Currently saturating at 93% on 2 L. Respiratory rate greater than 20 on admission. -Continue supplemental oxygen -Maintain saturations above 90% -Total respiratory care Possible parapneumonic effusion Patient was treated for community-acquired pneumonia couple of weeks ago. However he failed outpatient treatment for pneumonia. Still complains of cough, congestion, shortness of breath on exertion. High-grade fever 102.. Chest x-ray and CAT scan suggestive of right-sided pleural effusion -Possible parapneumonic effusion -Empyema is less likely, no WBC count elevation. -Diagnostic and therapeutic thoracocentesis-fluid Suggestive of transudate effusion. With PH 7.35, total protein fluid/serum less than 0.5, LDH fluid/ serum less than 0.6. -Cardiology was consulted- regarding transudate effusion. -Echocardiogram in July 2016 showed mild to moderate aortic stenosis Hypothyroidism Continue home dose of levothyroxine 50 g daily Hypertension Continue home dose of 40 mg lisinopril daily Overactive bladder On oxybutynin Atrial fibrillation Status post pacemaker placement Warfarin 5 mg daily at home Warfarin on hold so far for thoracocentesis resumed warfarin after the procedure. Insomnia Takes zolfresh 10 mg daily at home Problem List: 1. Pneumonia 2. Hypoxia Pain Ratin Pain Location: none Pain Goal: Remain pain free Pain Plan: tylinol Tomorrow's Labs & Rationales: cbc in the setting of pneumonia INR in the setting of atrial fibrillation who is on Coumadin MELITON MALIK MD 11/03/16 0955: Attending MD Review Statement Attending Statement Attending MD Statement: examined this patient, discuss w/resident/PA/TRACK LABORER, agreed w/resident/PA/TRACK LABORER, reviewed EMR data (avail), discussed with nursing, discussed with case mgmt Attending Assessment/Plan: Patient still feels short of breath and he is coughing. He scheduled for a diagnostic and therapeutic thoracentesis at 1 PM today. He is an 85-year-old male with a past medical history of hypertension, moderate aortic stenosis as seen on an echo on July 2016 who is here with a community-acquired pneumonia and a pleural effusion. He failed outpatient oral antibiotics. Given the fever and the effusion he is getting a tap to rule out a parapneumonic effusion. We spoke to Dr. Jose Fox who will see him whether or not we need to repeat the echo and whether or not we need to diurese him. He doesn't need bridging and once the thoracentesis is done, can likely restart his Coumadin.
--- NOTE | 2016-11-03 08:24 | PN- Pulmonary ---
Subjective HPI/Critical Care Issues: Patient remained short of breath with exertion and remains oxygen dependent. Diagnostic and therapeutic thoracentesis is scheduled for today Objective Current Medications: Current Medications Sig/Emily Start time Last Medication Dose Route Stop Time Status Admin Acetaminophen 0 .STK-MED ONE 11/02 2246 DC PO Acetaminophen 650 MG Q8P PRN 11/02 1545 AC 11/02 PO 2249 Acetaminophen 650 MG Q8P PRN 11/02 1445 AC 11/02 PO 1451 Acetaminophen 0 .STK-MED ONE 11/02 1444 DC PO Acetaminophen 650 MG ONCE ONE 11/02 1200 DC 11/02 PO 11/02 1201 1209 Acetaminophen 0 .STK-MED ONE 11/02 1158 DC PO Albuterol Sulfate 3 ML BID 11/02 220 AC 11/02 INH 2102 Albuterol Sulfate 3 ML ONCE ONE 11/02 0915 DC 11/02 INH 11/02 0916 1007 Azithromycin 500 MG DAILY 11/02 1349 AC 11/02 Sodium Chloride 250 ML IV 1536 Benzonatate 100 MG TID 11/02 1144 AC 11/02 PO 2127 Ceftriaxone Sodium 0 .STK-MED ONE 11/02 1415 DC .ROUTE Ceftriaxone Sodium 1,000 MG DAILY 11/02 1349 AC 11/02 IV 1450 Clindamycin 600 MG ONCE ONE 11/02 1100 DC 11/02 Dextrose/Water 50 ML IV 11/02 1129 1146 Guaifenesin 600 MG Q12 11/02 1140 AC 11/02 PO 2126 Ipratropium Cunningham 2.5 ML ONCE ONE 11/02 0915 DC 11/02 INH 11/02 0916 1007 Ketorolac 15 MG Q8P PRN 11/02 1545 DC Tromethamine IV Levothyroxine Sodium 0.05 MG DAILY AC 11/03 0700 AC PO Lisinopril 40 MG DAILY 11/02 1245 AC 11/02 PO 1321 Methylprednisolone 0 .STK-MED ONE 11/02 1140 DC .ROUTE Methylprednisolone 125 MG ONCE ONE 11/02 1100 DC 11/02 IV 11/02 1101 1146 Morphine Sulfate 1 MG Q8P PRN 11/02 1545 AC IV Oxybutynin Chloride 5 MG BID 11/02 2200 AC 11/02 PO 2126 Sodium Chloride 1,000 ML BOLUS ONE 11/02 0915 DC 11/02 IV 11/02 1014 0933 Warfarin Sodium 5 MG 1700 11/03 1700 CAN PO 11/03 1701 Vital Signs & I&O Last 24 Hrs of Vitals and I&O: Vital Signs Date Time Temp Pulse Resp B/P Pulse O2 O2 Flow FiO2 Ox Delivery Rate 11/03 0627 99.7 64 22 134/68 93 Nasal Cannula 11/02 2029 95 Nasal 2.0L Cannula 11/02 2025 60 20 141/60 95 Nasal 2.0L Cannula 11/02 2021 95 Nasal 2.0L Cannula 11/02 2010 98.9 63 20 141/60 94 Nasal 2.0L Cannula 11/02 1911 Nasal 2.0L Cannula 11/02 1542 94 Nasal 2.0L Cannula 11/02 1537 99.9 11/02 1532 99.9 71 20 123/57 93 Nasal 2.0L Cannula 11/02 1451 101.4 11/02 1325 101.4 11/02 1322 101.4 11/02 1321 100.9 83 18 138/108 11/02 1303 100.9 83 18 138/108 90 Room Air 11/02 1210 102.4 93 18 181/86 92 Nasal 2.0L Cannula 11/02 1209 102.4 11/02 1008 90 11/02 0936 86 Room Air 11/02 0904 98.9 120 24 144/80 86 Room Air Intake & Output 11/03 1600 11/03 0800 11/03 0000 Intake Total 480 Output Total Balance 480 Intake, Oral 480 Patient 210 lb Weight Oxygen saturation on 2 L is 93%. He has defervesced. Exam of his chest is unchanged and continues to show dullness diminished breath sounds and egophony at the right lower lung zones Impression/Plan Impression/Plan Impression/Plan: 85-year-old gentleman with underlying heart disease has had persistent symptoms over the past month or so with a graphic evidence of increasing pleural effusion. CT scan today showed evidence of a moderately sized layering right pleural effusion. Hounsfield numbers do not suggest that this is an empyema. There is an infiltrate with air bronchograms in the right lower lobe thought to represent compression atelectasis as well as areas of tree-in-bud in the right upper lobe. Patient remains febrile with normal white count without evidence of left shift. Differential diagnosis includes pneumonia with parapneumonic effusion. Increased effusion secondary to heart disease with elevated BMP and atelectasis causing fever. Pulmonary embolism though consideration appears to be less likely in view of his chronic anticoagulation though his INR is subtherapeutic. If above studies studies are negative recommend d-dimer and if abnormal CTA. Await diagnostic and therapeutic thoracentesis. If dyspnea has not improved after thoracentesis would pursue evaluation for pulmonary embolism Recommendations: Diagnostic and therapeutic thoracentesis. Sent for routine, pH and cytology as well as cultures. Consider mild negative fluid balance with elevated BNP and edema. If fluid is a transudate would obtain cardiac ultrasound to better understand the etiology of the effusion. Antibiotics can be continued pending review of thoracentesis.
--- NOTE | 2016-11-03 09:01 | NUR ---
Pt having thoracentsis procedure at 1pm
--- NOTE | 2016-11-03 09:13 | NUR ---
PT TO HAVE THORACENTESIS AT 1P
--- NOTE | 2016-11-03 11:54 | RADIOLOGY REPORT ---
EXAMINATION:\H\ \N\XR CHEST CLINICAL INFORMATION: Status post thoracentesis. COMPARISON: 11/02/2016 TECHNIQUE: Single AP view of the chest was obtained. FINDINGS: Right chest wall single-lead pacer is unchanged. The lungs are well expanded. There is improvement of the previous right pleural effusion with minimal residual blunting of the right costophrenic angle. No pneumothorax. No dense consolidation. The cardiomediastinal silhouette is unchanged, remaining prominent. IMPRESSION: Improvement of the previous right pleural effusion with minimal residual blunting of the right costophrenic angle. No pneumothorax.
[2016-11-03 12:00] VITALS: BP 146/70
--- NOTE | 2016-11-03 12:32 | NUR ---
PT ADMITTED TO ROOM 175 FLOOR WILL CALL WHEN BED IS READY
--- NOTE | 2016-11-03 15:37 | Cons- Cardiology ---
General Information and HPI Consulting Request Date of Consult: 11/03/16 Requested By: PAULINA SIMON MD Reason for Consult: Shortness of breath, question cardiac etiology. Source of Information: patient, old records Exam Limitations: no limitations History of Present Illness: Dilip Carmona is an 85-year-old male who I have been following since 1995. He initially presented with shortness of breath and was found to be in atrial fibrillation. It appeared that he had been in atrial fibrillation for about 3 years. We thought he had lone atrial fibrillation and did not initially fully anticoagulate him. He was placed on aspirin. He did not require rate limiting medications as his heart rate was normal to on the slow side. When he became older we put him on Coumadin, which he has taken for the last 10 years or so without any problems. In 2009, he began developing significant bradycardia. We recommended a pacemaker , which he initially was a little reluctant to have, but he did see Dr. Mullins for a second opinion and Dr. Mullins recommended a pacemaker, which was done on 05/16/2010 as a single chamber device. This was uncomplicated and he has not had any problems since then with the pacemaker or with his atrial fibrillation. I most recently saw Dilip a couple of months ago at which time he was doing well. The pacemaker checked out well. I sent him for an echocardiogram which showed good left ventricular systolic function, LVH, mild to moderate aortic stenosis. Subsequently, he has been doing well until about 10 days prior to admission when he began noticing shortness of breath and coughing. He had a course of antibiotics as an outpatient but his symptoms continued and he presented to the emergency department yesterday with continued symptoms. He was found to have a right pleural effusion which was tapped today. However his chest x-ray did not document definite congestive heart failure. His proBNP was mildly elevated at 1070 and his enzymes were negative. He was noted to have some edema and a question of fluid overload or cardiac component was raised. The patient is feeling a little bit better. He has not had any chest pain at any time during this illness. He is being treated with antibiotics and respiratory treatments. Allergies/Medications Allergies: Coded Allergies: amoxicillin (From Augmentin) (Severe, ANAPHYLAXIS 11/02/16) clavulanic acid (From Augmentin) (Severe, ANAPHYLAXIS 11/02/16) Penicillins (RASH 11/02/16) Home Med List: Cholecalciferol (Vitamin D3) (Vitamin D3) 1,000 UNIT CAPSULE 1,000 IU PO DAILY SUPPLEMENT (Reported) Levothyroxine Sodium 50 MCG TABLET 50 MCG PO DAILY THYROID (Reported) Lisinopril 40 MG TABLET 40 MG PO DAILY HTN (Reported) Tolterodine Tartrate (Detrol LA) 4 MG CAP.ER.24H 4 MG PO DAILY OVERACTIVE BLADDER (Reported) Warfarin Sodium 5 MG TABLET 5 MG PO DAILY "MY HEART" (Reported) Zolpidem Tartrate 10 MG TABLET 10 MG PO DAILY SLEEP (Reported) Current Medications: Current Medications Sig/Emily Start time Last Medication Dose Route Stop Time Status Admin Acetaminophen 0 .STK-MED ONE 11/03 1427 DC PO Acetaminophen 0 .STK-MED ONE 11/02 2246 DC PO Acetaminophen 650 MG Q8P PRN 11/02 1545 AC 11/02 PO 2249 Acetaminophen 650 MG Q8P PRN 11/02 1445 AC 11/03 PO 1432 Albuterol Sulfate 3 ML BID 11/02 2200 AC 11/03 INH 0825 Azithromycin 500 MG DAILY 11/02 1349 AC 11/03 Sodium Chloride 250 ML IV 1227 Benzonatate 100 MG TID 11/02 1144 AC 11/03 PO 1227 Ceftriaxone Sodium 1,000 MG DAILY 11/02 1349 AC 11/03 IV 1227 Guaifenesin 600 MG Q12 11/02 1140 AC 11/03 PO 1227 Ketorolac 15 MG Q8P PRN 11/02 1545 DC Tromethamine IV Levothyroxine Sodium 0.05 MG DAILY AC 11/03 0700 AC 11/03 PO 1227 Lisinopril 40 MG DAILY 11/02 1245 AC 11/03 PO 1227 Morphine Sulfate 1 MG Q8P PRN 11/02 1545 AC IV Oxybutynin Chloride 5 MG BID 11/02 2200 AC 11/03 PO 1227 Warfarin Sodium 6 MG COUMADIN 1700 ONE 11/03 1700 AC PO 11/03 1701 Review of Systems Review of Systems: He has no complaints in the review of systems other than the current illness complaints. Past History Travel History Traveled to [place] past 21 day No Medical History Blood Transfusion Hx: No Neurological: NONE EENT: NONE Cardiovascular: AFIB, hypertension, PPM Respiratory: PLEURAL EFFUSION Gastrointestinal: NONE Hepatic: NONE Renal: NONE Musculoskeletal: NONE Psychiatric: NONE Endocrine: NONE Blood Disorders: NONE Cancer(s): NONE CONSTRUCTION EXECUTIVE/Reproductive: NONE Surgical History Surgical History: cataract removal, PPM PACEMAKER Family History Relations & Conditions If Any: MOTHER *No pertinent family history Relation not specified for: FH: hypertension Psychosocial History Where Do You Live? Home Who Do You Live With? child Services at Home: None Smoking Status: Former Smoker ETOH Use: occasional use Illicit Drug Use: denies illicit drug use Power of Irrigation Specialist/HCP? yes Name of POA/HCP: SON Functional Ability ADLs Independent: dressing, eating, toileting, bathing. Ambulation: independent Exam & Diagnostic Data Vital Signs and I&O Vital Signs Date Time Temp Pulse Resp B/P Pulse O2 O2 Flow FiO2 Ox Delivery Rate 11/03 1432 100.1 11/03 1227 86 146/70 11/03 1200 100.1 86 20 146/70 93 Nasal 3.0L Cannula 11/03 08 93 Nasal 3.0L Cannula 11/03 626 99.7 64 22 134/68 93 Nasal Cannula 11/02 2029 95 Nasal 2.0L Cannula 11/02 2025 60 20 141/60 95 Nasal 2.0L Cannula 11/02 2021 95 Nasal 2.0L Cannula 11/02 2010 98.9 63 20 141/60 94 Nasal 2.0L Cannula 11/02 1911 Nasal 2.0L Cannula 11/02 1542 94 Nasal 2.0L Cannula 11/02 1537 99.9 Intake & Output 11/03 1600 11/03 0800 11/03 0000 11/02 1600 11/02 0800 11/02 0000 Intake Total 480 1100 Output Total Balance 480 1100 Intake, IV 1100 Intake, Oral 480 Patient 210 lb Weight Physical Exam: He is in no distress HEENT exam is normal Chest reveals mild expiratory wheezing and some rhonchi Heart reveals irregular rhythm with grade 2/6 systolic ejection murmur at the base Abdomen is benign Extremities revealed trace to 1+ edema of the lower legs and ankles Labs/Lokesh Results: Laboratory Tests 11/03 11/03 11/03 1130 1130 1130 Hematology Lymphocytes (%) 73 Misc Hematology Test (%) 1 Miscellaneous Phlebotomy Draw Site RT THORA Other Body Source Fluid WBC (0 - 5 /CUMM) 571 H Fld Mesothelial Cells (%) 26 Fld Total RBCs Counted (0 /CUMM) 328 H Fluid Glucose (mg/dL) 141 Fluid Total Protein (g/dL) 3.3 Fluid Albumin (g/dL) 1.6 Fluid LDH (U/L) 198 Fluid Amylase (U/L) < 30 Pleural pH (PH) 7.35 11/03 11/02 11/02 0600 1433 1238 Chemistry Sodium (137 - 145 mmol/L) 134 L Potassium (3.5 - 5.1 mmol/L) 4.6 Chloride (98 - 107 mmol/L) 93 L Carbon Dioxide (22 - 30 mmol/L) 31 H Anion Gap (5 - 16) 10 BUN (9 - 20 mg/dL) 12 Creatinine (0.7 - 1.2 mg/dL) 0.6 L Estimated GFR (>60 ml/min) > 60 BUN/Creatinine Ratio (7 - 25 %) 20.0 Lactic Acid (0.7 - 2.1 mmol/L) 1.9 Lactate Dehydrogenase (313 - 618 U/L) 455 Total Protein (6.3 - 8.2 g/dL) 6.7 Albumin (3.5 - 5.0 g/dL) 3.5 Coagulation PT (9.4 - 12.5 SEC) 15.4 H INR (0.90 - 1.17) 1.47 H Hematology CBC w Diff NO MAN DIFF REQ WBC (4.8 - 10.8 /CUMM) 4.2 L RBC (4.70 - 6.10 /CUMM) 3.67 L Hgb (14.0 - 18.0 G/DL) 12.5 L Hct (42 - 52 %) 37.1 L MCV (80.0 - 94.0 FL) 101.0 H MCH (27.0 - 31.0 PG) 34.0 H RDW (11.5 - 14.5 %) 14.3 Plt Count (130 - 400 /CUMM) 161 MPV (7.4 - 10.4 FL) 6.8 L Gran % (42.2 - 75.2 %) 74.0 Lymphocytes % (20.5 - 51.1 %) 20.0 L Monocytes % (1.7 - 9.3 %) 6.0 Eosinophils % (0 - 5 %) 0 Basophils % (0.0 - 2.0 %) 0 L Absolute Granulocytes (1.4 - 6.5 /CUMM) 3.1 Absolute Lymphocytes (1.2 - 3.4 /CUMM) 0.8 L Absolute Monocytes (0.10 - 0.60 /CUMM) 0.3 Absolute Eosinophils (0.0 - 0.7 /CUMM) 0 Absolute Basophils (0.0 - 0.2 /CUMM) 0 PUBS MCHC (33.0 - 37.0 G/DL) 33.6 Toxicology Acetaminophen Cancelled 11/02 11/02 11/02 1201 1105 0933 Chemistry Troponin I Cancelled [id number] Pept Cancelled Coagulation PT (9.4 - 12.5 SEC) 18.9 H INR (0.90 - 1.17) 1.81 H Serology Virus Culture Pending 11/02 0930 Chemistry Sodium (137 - 145 mmol/L) 136 L Potassium (3.5 - 5.1 mmol/L) 4.3 Chloride (98 - 107 mmol/L) 92 L Carbon Dioxide (22 - 30 mmol/L) 30 Anion Gap (5 - 16) 14 BUN (9 - 20 mg/dL) 9 Creatinine (0.7 - 1.2 mg/dL) 0.6 L Estimated GFR (>60 ml/min) > 60 BUN/Creatinine Ratio (7 - 25 %) 15.0 Glucose (65 - 99 mg/dL) 126 H Lactic Acid (0.7 - 2.1 mmol/L) 2.1 Calcium (8.4 - 10.2 mg/dL) 8.9 Magnesium (1.6 - 2.3 mg/dL) 1.6 Total Bilirubin (0.2 - 1.3 mg/dL) 0.8 AST (17 - 59 U/L) 28 ALT (21 - 72 U/L) 28 Alkaline Phosphatase (< 127 U/L) 62 Troponin I (<0.11 ng/ml) < 0.01 [id number] Pept (<125 pg/mL) 1070 H Total Protein (6.3 - 8.2 g/dL) 7.8 Albumin (3.5 - 5.0 g/dL) 4.3 Globulin (1.9 - 4.2 gm/dL) 3.5 Albumin/Globulin Ratio (1.1 - 2.2 %) 1.2 Vitamin B12 (239 - 931 pg/mL) 495 Folate (2.76 - 20.0 ng/mL) 5.0 Hematology CBC w Diff NO MAN DIFF REQ WBC (4.8 - 10.8 /CUMM) 6.2 RBC (4.70 - 6.10 /CUMM) 4.26 L Hgb (14.0 - 18.0 G/DL) 14.4 Hct (42 - 52 %) 43.0 MCV (80.0 - 94.0 FL) 100.8 H MCH (27.0 - 31.0 PG) 33.8 H RDW (11.5 - 14.5 %) 14.0 Plt Count (130 - 400 /CUMM) 206 MPV (7.4 - 10.4 FL) 6.9 L Gran % (42.2 - 75.2 %) 66.4 Lymphocytes % (20.5 - 51.1 %) 20.4 L Monocytes % (1.7 - 9.3 %) 9.1 Eosinophils % (0 - 5 %) 3.7 Basophils % (0.0 - 2.0 %) 0.4 Absolute Granulocytes (1.4 - 6.5 /CUMM) 4.1 Absolute Lymphocytes (1.2 - 3.4 /CUMM) 1.3 Absolute Monocytes (0.10 - 0.60 /CUMM) 0.6 Absolute Eosinophils (0.0 - 0.7 /CUMM) 0.2 Absolute Basophils (0.0 - 0.2 /CUMM) 0 PUBS MCHC (33.0 - 37.0 G/DL) 33.5 Diagnostic Data EKG Results The EKG on admission showed atrial fibrillation with ventricular pacing and frequent PVCs. CXR Results PATIENT: DILIP CARMONA PRESENT AGE: 85 PATIENT ACCOUNT NO: [id number] : 31 LOCATION: [facility] ORDERING PHYSICIAN: BEVERLY PERKINS SERVICE DATE: 11/02/16 EXAM TYPE: RAD - XRY-PORTABLE CHEST XRAY EXAMINATION: XR PORTABLE CHEST CLINICAL INFORMATION: Pneumonia COMPARISON: 10/10/2016 TECHNIQUE: Portable view of the chest was obtained. FINDINGS: Right chest wall single-lead pacer remains unchanged. The lungs are well expanded. Increased hazy bibasilar opacity, right greater than left. Small right pleural effusion suspected. No edema. No pneumothorax. The cardiomediastinal silhouette is unchanged. Degenerative changes of the shoulders. IMPRESSION: Small right pleural effusion with increased hazy basilar opacities, right greater than left. This appearance could represent atelectasis or pneumonia. This is increased from prior. DICTATED BY: REECE BAZAN MD DATE/TIME DICTATED:11/02/16957 DRIVE AWAY DRIVER:СВЕТЛАНА DATE/TIME TRANSCRIBED:11/02/16957 CONFIDENTIAL, DO NOT COPY WITHOUT APPROPRIATE AUTHORIZATION. <Electronically signed in Other Vendor System> SIGNED BY: REECE BAZAN MD 11/02 1004 Assessment/Plan Assessment/Plan Mr. Carmona presents with shortness of breath, coughing, some wheezing. He has underlying chronic atrial fibrillation but normal left ventricular systolic function, and mild to moderate aortic stenosis. He had a right pleural effusion which has been tapped. The fluid is still being analyzed for transudate versus exudate. He has a mildly elevated proBNP which is nonspecific especially in the presence of atrial fibrillation. However he does have some peripheral edema. I think he probably would benefit from a mild diuresis at this time and I would recommend starting him on oral Lasix, 20 mg daily. In terms of his anticoagulation, his warfarin was held for the thoracentesis and can be just restarted. He does not need bridging with Lovenox. Copies To: SARAH MIGUEL,JORI Landis Consult Acknowledgment - Thank you for your consult request.
--- NOTE | 2016-11-03 15:44 | ULTRASOUND REPORT ---
CLINICAL HISTORY: This patient is a 85-year-old man with shortness of breath. The patient is referred to interventional radiology for ultrasound-guided thoracentesis. PROCEDURE: Ultrasound-guided thoracentesis. COMPARISON: Chest CT 11/02/2016 ACCESS: 6 Fr [id number] closed needle/catheter system. PROCEDURALIST: Dr. Laina Rodriguez. MEDICATIONS: 10 mL of 1% lidocaine SQ. COMPLICATIONS: None. ESTIMATED BLOOD LOSS: <5 mL. SPECIMENS: A specimen was appropriately labeled and sent to the laboratory as requested. PROCEDURE NOTE: Appropriate pre-procedure medical history and imaging studies were reviewed. Informed consent was obtained from the patient prior to the procedure. During this process, the procedure and potential alternatives were explained along with the intended outcome and benefits. The risks of the procedure, including the possibility of an unsuccessful procedure, as well as the risk of not doing the procedure, were discussed. The patient was given the opportunity to ask questions regarding the procedure and appeared competent to make decisions. A signed consent form documenting this discussion was placed in the medical record. SITE MARKING: As part of the preprocedure verification policy, a site marking procedure was initiated. Due to the nature the procedure, the insertion site could not be predetermined thus invoking the policy of exemption to site laterality and marking. Insertion site marking was performed in the procedure room in conjunction with imaging confirmation. A time-out procedure was performed. The patient was brought to the ultrasound department and placed in the seated position. Ultrasound images of the right thorax were obtained to localize a moderate pleural effusion. Images were permanently saved to the record. An area of the patient's right back was prepped and draped in the standard sterile fashion. 10 mL of 1% lidocaine was used to obtain local anesthesia of the skin and deeper tissues. A standard small-bore needle was introduced to sample fluid and demonstrated a safe access route. There was no evidence of traversing adjacent organs or vascular structures. A 6 Fr [id number] closed needle/catheter system was utilized for access. 860 mL of clear straw-colored fluid was aspirated before drainage ceased. The catheter was removed and a sterile dressing applied. The patient tolerated the procedure well without evidence of immediate complications. FINDINGS: Moderate simple right pleural effusion. IMPRESSION: Successful right ultrasound-guided therapeutic and diagnostic thoracentesis. PLAN: 1. A postprocedure chest x-ray was ordered and will be dictated separately. 2. The patient was stable after the procedure and transferred to their room with instructions after standard monitoring.
[2016-11-03 16:16] VITALS: BP 112/66
--- NOTE | 2016-11-03 17:17 | Patient Discharge Instructions ---
Discharge Instructions General Discharge Information You were seen/treated for: Fever Acute hypoxic respiratory failure Community acquired pneumonia Right sided plural effusions-transudate hematuria and painful urination You had these procedures: Diagnostic and therapeutic thoracocentesis CYSTOSCOPY AND FULGURATION Watch for these problems: Worsening shortness of breath Fever Cough Worsening wheeze Chest pain hematuria painful urination urine retention Special Instructions: Follow-up with your primary care doctor in 1 week Follow-up with furnace feeder, Dr. Frias in 1 week Follow-up with your aluminum pool installer, Dr. Edwin Fox in 1 week follow up with urologist, in one week. Diet Continue normal diet: Yes Activity Full Activity/No Limits: Yes Acute Coronary Syndrome Inclusion Criteria At DC or during hospital stay patient has or had the following: ACS DIAGNOSIS No Discharge Core Measures Meds if any: Prescribed or Continued at Discharge Meds if any: NOT Prescribed or Continued at Discharge Congestive Heart Failure Inclusion Criteria At DC or during hospital stay patient has or had the following: CHF DIAGNOSIS No Discharge Core Measures Meds if any: Prescribed or Continued at Discharge Meds if any: NOT Prescribed or Continued at Discharge Cerebrovascular accident Inclusion Criteria At DC or during hospital stay patient has or had the following: CVA/TIA Diagnosis No Discharge Core Measures Meds if any: Prescribed or Continued at Discharge Meds if any: NOT Prescribed or Continued at Discharge Venous thromboembolism Inclusion Criteria VTE Diagnosis No VTE Type NONE VTE Confirmed by (Test) CT CHEST ANGIOGRAM Discharge Core Measures - Per Current guidelines, there needs to be overlap - treatment for the first 5 days of Warfarin therapy. - If discharged on Warfarin prior to 5 days of - overlap therapy, the patient will need to be - assessed for post discharge needs including - *Post discharge parental anticoagulation - *Warfarin and/or parental anticoagulation education - *Follow up date to check INR post discharge At least 5 days overlap therapy as Inpatient No Meds if any: Prescribed or Continued at Discharge Note: Overlap Therapy is Warfarin and Anticoagulant Meds if any: NOT Prescribed or Continued at Discharge
--- NOTE | 2016-11-03 19:04 | Discharge Summary ---
See Addendum Visit Information Visit Dates Admission Date: 11/02/16 Discharge Date: 11/09/16 Hospital Course Course Attending Physician: DR. MELITON MALIK Primary Care Physician: JORI SMITH MD Other Care Providers: Ship Construction Teacher Dr. Vazquez Real Estate Director Dr. Eliana Pineda Consulting Request: Consulting Specialty: Cardiology Hospital Course: This is a 85-year-old male with past medical history significant for atrial fibrillation on warfarin 5 mg, status post permanent pacemaker placement, insomnia, overactive bladder, hypertension, hypothyroidism presented to emergency department with chief complaint of fever, dry cough, congestion, shortness of breath on exertion, wheezing for 10 days. Of note patient has been to her primary care doctor On October 10 for fever, cough and chest x-ray was done which showed right sided plural effusion and he was sent home on oral antibiotics-5 days of oral azithromycin. However patient still has ongoing dry cough not associated with any sputum production and lung congestion for 10 days. No relief with antibiotics and cough suppressants. Also complains shortness of breath on exertion associated with wheezing. No orthopnea and paroxysmal nocturnal dyspnea. No chest pain, racing of heart, hemoptysis. He denies any smoking. Vitals on Admission-febrile 102.4, tachycardic 120, respiratory rate 24, blood pressure 120/57, saturating at 93% on 2 L. Pertinent labs on admission-WBC 6.2, H&H normal. BEP normal. INR 1.81. troponins were negative. ProBNP 1070. CXR Small right pleural effusion with increased hazy basilar opacities, right greater than left. This appearance could represent atelectasis or pneumonia. chestCT 1. Tree-in-bud opacities within the right upper lobe suggesting small airways disease. 2. Small to moderate right pleural effusion resulting in compressive atelectasis of the right lower lobe. EKG-paced rhythm, PACs, PVCs, 86 bpm. Suspected Community-acquired pneumonia Patient presented with fever 102, dry cough, congested lungs, shortness of breath on exertion, wheezing. Of note he failed outpatient treatment for pneumonia 2 weeks ago. He is not on home oxygen. Denies smoking. Normal leukocyte count. Admitted to telemetry floor for further monitoring. provided supplemental oxygen. he received IV antibiotics ceftriaxone and azithromycin. Total respiratory care was provided. Follow-up blood culture, sputum culture-negative so far. Follow-up urine pneumococcal and streptococcal antigen- negative. However once the thoracentesis revealed a transudative effusion, we stopped the antibiotics. Acute hypoxic respiratory failure Patient presented with shortness of breath on exertion. Of note patient is not on oxygen at home. He desaturated to 84-86% on room air requiring supplemental oxygen. He was saturating at 93% on 2 L. Continued supplemental oxygen. Maintained saturations above 90% Right-sided pleural effusion Patient was treated for community-acquired pneumonia couple of weeks ago. However he failed outpatient treatment for pneumonia. Still complains of cough, congestion, shortness of breath on exertion. High-grade fever 102.. Chest x-ray and CAT scan suggestive of right-sided pleural effusion. Given the fever and the pleural effusion, we decided to allow the INR to drift down, not give him any Coumadin and proceed with thoracentesis. Diagnostic and therapeutic thoracocentesis done on 11/03- fluid Suggestive of transudate effusion. With PH 7.35, total protein fluid/serum less than 0.5, LDH fluid/serum less than 0.6. Antibiotics stopped at that point. Cardiology was consulted- regarding transudate effusion. Patient was started on oral Lasix 40 mg daily. Echocardiogram- Moderate concentric left ventricular hypertrophy. Normal left ventricular ejection fraction visually estimated at >65 Right ventricular systolic pressure estimated to be elevated at 55- 60 mmHg. We had to stop the lasix because of borderline BP but once he is stable he should be restarted on Lasix 20 mg daily Hypothyroidism Continued home dose of levothyroxine 50 g daily Hypertension Continued home dose of 40 mg lisinopril daily Overactive bladder and BPH On oxybutynin and Tamsulosin. On November 04, pt started having some hematuria and pain on urination. UA showed some RBCs but was negative for any white cells or bacteria. Bladder ultrasound done showed no hydro, no mass. On November 05 patient started having difficulty voiding and burning on urination and some hematuria. At that point the catheter was put in. The hematuria and severe pain continued and on SundayNovember 06, pt was taken by Dr. Bolanos for a cystoscopy. She didn't find any bladder pathology, he was bleeding from his prostate in the enlarged prostate and she cleared out all the clots. When he came out we kept him on CBI and once it was clear we discontinued his Butler catheter. He continues to have some hematuria and discomfort on urination and we think that his urethra has been traumatized and this will take time to heal. Atrial fibrillation Status post pacemaker placement Warfarin 5 mg daily at home Insomnia Takes zolfresh 10 mg daily at home Complications: none Allergies: Coded Allergies: amoxicillin (From Augmentin) (Severe, ANAPHYLAXIS 11/02/16) clavulanic acid (From Augmentin) (Severe, ANAPHYLAXIS 11/02/16) Penicillins (RASH 11/02/16) Significant Procedures: Diagnostic and therapeutic thoracocentesis An area of the patient's right back was prepped and draped in the standard sterile fashion. 10 mL of 1% lidocaine was used to obtain local anesthesia of the skin and deeper tissues. A standard small-bore needle was introduced to sample fluid and demonstrated a safe access route. There was no evidence of traversing adjacent organs or vascular structures. A 6 Fr [id number] closed needle/catheter system was utilized for access. 860 mL of clear straw-colored fluid was aspirated before drainage ceased. The catheter was removed and a sterile dressing applied. The patient tolerated the procedure well without evidence of immediate complications. FINDINGS: Moderate simple right pleural effusion. IMPRESSION: Successful right ultrasound-guided therapeutic and diagnostic thoracentesis. PLAN: 1. A postprocedure chest x-ray was ordered and will be dictated separately. 2. The patient was stable after the procedure and transferred to their room with instructions after standard monitoring. Pertinent Lab Results: CHEST CT IMPRESSION: 1. Tree-in-bud opacities within the right upper lobe suggesting small airways disease. 2. Small to moderate right pleural effusion resulting in compressive atelectasis of the right lower lobe. CHEST XRAY IMPRESSION: Small right pleural effusion with increased hazy basilar opacities, right greater than left. This appearance could represent atelectasis or pneumonia. This is increased from prior. echo CONCLUSIONS Moderate concentric left ventricular hypertrophy. Normal left ventricular ejection fraction visually estimated at >65 No obvious regional wall motion abnormalities. Catheter/pacemaker wire in the right ventricular cavity. Catheter/pacemaker wire in the right atrial cavity. Mild to moderate left atrial dilatation. Mild thickening/calcification of the mitral valve leaflets. Mild mitral annular calcification. Mild to moderate tricuspid regurgitation. Right ventricular systolic pressure estimated to be elevated at 55- 60 mmHg. Moderate to severe pulmonary hypertension. The ascending aorta is upper limits of normal diameter 3.7 cm. Dilated IVC. v/q scan Very low probability of pulmonary embolism. renal u/s 1. Sonographically unremarkable bilateral kidneys, unchanged since prior study. 2. Mildly enlarged prostate. Disposition Summary Disposition Principal Diagnosis: 1. Community-acquired pneumonia 2. Acute hypoxic respiratory failure 3. TRANSUDATIVE EFFUSION Additional Diagnosis: Hematuria BPH Afib on coumadin Discharge Disposition: rehab Discharge Instructions General Discharge Information Code Status: Full Code Patient's Diet: As tolerated Patient's Activity: As tolerated Follow-Up Instructions/Appts: Follow-up with your primary care doctor within 1 week Follow-up with hot tamale worker Dr. Edwin Fox in one week Follow-up with final dressing cutter, Dr. Altagracia Pineda in 1 week Follow-up with urologist Dr. Luis Miguel Metzger in 1 week 1. patient is not on oxygen previously, please taper down oxygen slowly. 2. Patient likely will need Lasix. Once BP stabilizes, start Lasix at 20 mg daily with close f/u with Dr Rudy Fox 3. He continues to have some hematuria and discomfort on urination and we think that his urethra has been traumatized and this will take time to heal. Please avoid Foleys catheterisation. 4. Patient takes Coumadin 5 mg daily. Please check PT and INR every 2-3 days. Medications at Discharge Discharge Medications: Continue taking these medications: Levothyroxine Sodium (Levothyroxine Sodium) 50 MCG TABLET 50 Microgram ORAL DAILY Qty = 90 Comments: Last Taken:11/10/16 Time: 6:30 AM Warfarin Sodium (Warfarin Sodium) 5 MG TABLET 5 Milligram ORAL DAILY Qty = 90 Comments: Last Taken:11/09/16 Time: 4:30 PM Zolpidem Tartrate (Zolpidem Tartrate) 10 MG TABLET 10 Milligram ORAL DAILY Comments: NOT GIVEN IN HOSPITAL Lisinopril (Lisinopril) 40 MG TABLET 40 Milligram ORAL DAILY Comments: Last Taken:11/10/16 Time: 9 AM Tolterodine Tartrate (Detrol LA) 4 MG CAP.ER.24H 4 Milligram ORAL DAILY Comments: NOT GIVEN ALTERNATIVE MED GIVEN IN HOSPITAL - [facility] LAST GIVEN 11/09/16 @ 9:30 PM Cholecalciferol (Vitamin D3) (Vitamin D3) 1,000 UNIT CAPSULE 1,000 International Unit ORAL DAILY Comments: NOT GIVEN Start taking the following new medications: Tamsulosin HCl (Flomax) 0.4 MG CAP.ER.24H 1 Milligram ORAL AT BEDTIME Qty = 30 No Refills Comments: Last Taken:11/09/16 Time: 9:30 PM Benzonatate (Benzonatate) 100 MG CAPSULE 1 Tablet ORAL THREE TIMES DAILY as needed for COUGH Qty = 15 No Refills Comments: Last Taken:11/10/16 Time: 9 AM Albuterol Sulfate (Proair Hfa) 90 MCG HFA.AER.AD 2 Puff Inhale through mouth EVERY 4-6 HOURS NEEDED as needed for sob Qty = 1 No Refills Comments: NOT GIVEN ALBUTEROL NEB TX GIVEN INSTEAD- LAST GIVEN 11/10/16 @8:30 AM Lidocaine (Topicaine) 4 % GEL..GRAM. 1 Application On the skin THREE TIMES DAILY as needed for pain Qty = 1 No Refills Comments: Last Taken:11/09/16 Time: 10 PM Copies To: SARAH MIGUEL,JORI Landis; ART MIGUEL,EDWIN Cornelius; FREDY MIGUEL,EDWIN Madrigal
[2016-11-04 01:03] VITALS: BP 118/70
[2016-11-04 07:51] LABS: ABSOLUTE BASOPHIL COUNT 0 /CUMM (0.0-0.2); ABSOLUTE EOSINOPHIL COUNT 0 /CUMM (0.0-0.7); ABSOLUTE GRANULOCYTE CT 3.3 /CUMM (1.4-6.5); ABSOLUTE LYMPH COUNT 1.5 /CUMM (1.2-3.4); ABSOLUTE MONOCYTE COUNT 0.5 /CUMM (0.10-0.60); BASOPHIL % 0.7 % (0.0-2.0); EOSINOPHIL % 0 % (0-5); GRANULOCYTE % 62.4 % (42.2-75.2); HEMATOCRIT 40.9 % (42-52); MEAN CORPUSCULAR HGB 33.8 PG (27.0-31.0); MEAN CORPUSCULAR HGB CONC 33.3 G/DL (33.0-37.0); MEAN CORPUSCULAR VOLUME 101.6 FL (80.0-94.0); MEAN PLATELET VOLUME 7.1 FL (7.4-10.4); PLATELET COUNT 170 /CUMM (130-400); RBC DISTRIBUTION WIDTH 14.2 % (11.5-14.5); RED BLOOD CELL CT 4.03 /CUMM (4.70-6.10); WHITE BLOOD CELL COUNT 5.2 /CUMM (4.8-10.8)
[2016-11-04 08:00] VITALS: BP 120/60
[2016-11-04 08:16] LABS: PT 14.3 SEC (9.4-12.5)
--- NOTE | 2016-11-04 12:45 | PN- Pulmonary ---
Subjective HPI/Critical Care Issues: Patient seen and examined. He has had an ultrasound of his chest in a thoracentesis was performed draining 860 cc of clear straw-colored fluid. The lites criteria is not positive and appears to be transudate of. The pH is 7.35. The patient remains on 5 L nasal cannula saturating 94%. Overall he feels well but he did not have any relief from the thoracentesis. He is afebrile white count is 5.2. Objective Current Medications: Current Medications Sig/Emily Start time Last Medication Dose Route Stop Time Status Admin Acetaminophen 0 .STK-MED ONE 11/03 1427 DC PO Acetaminophen 650 MG Q8P PRN 11/02 1545 AC 11/02 PO 2249 Acetaminophen 650 MG Q8P PRN 11/02 1445 AC 11/04 PO 0955 Albuterol Sulfate 3 ML BID 11/02 2200 AC 11/04 INH 0752 Azithromycin 500 MG DAILY 11/02 1349 AC 11/04 Sodium Chloride 250 ML IV 0955 Benzonatate 100 MG TID 11/02 1144 AC 11/04 PO 0955 Ceftriaxone Sodium 1,000 MG DAILY 11/02 1349 AC 11/04 IV 0955 Furosemide 20 MG DAILY 11/03 1836 AC 11/04 PO 0955 Guaifenesin 600 MG Q12 11/02 1140 AC 11/04 PO 0955 Levothyroxine Sodium 0.05 MG DAILY AC 11/03 0700 AC 11/04 PO 0701 Lisinopril 40 MG DAILY 11/02 1245 AC 11/04 PO 0955 Morphine Sulfate 1 MG Q8P PRN 11/02 1545 AC IV Oxybutynin Chloride 5 MG BID 11/02 2200 AC 11/04 PO 0955 Patient Medication 1 UNIT ONE NR 11/03 1915 [place] Teaching ED 11/03 1930 Warfarin Sodium 6 MG COUMADIN 1700 ONE 11/03 1700 DC 11/03 PO 11/03 1701 1857 Vital Signs & I&O Last 24 Hrs of Vitals and I&O: Vital Signs Date Time Temp Pulse Resp B/P Pulse O2 O2 Flow FiO2 Ox Delivery Rate 11/04 954 120/60 11/04 08 Nasal 5.0L Cannula 11/04 799 98.2 64 20 120/60 94 Nasal 5.0L Cannula 11/04 0756 93 Nasal 4.5L Cannula 11/04 0103 98.2 56 18 118/70 93 Nasal 3.0L Cannula 11/04 0000 92 Nasal 3.0L Cannula 11/03 2215 Nasal 2.0L Cannula 11/03 1616 98.9 67 18 112/66 94 Nasal 3.0L Cannula 11/03 1600 Nasal 3.0L Cannula 11/03 1432 100.1 Intake & Output 11/04 1600 11/04 0800 11/04 0000 Intake Total 610 Output Total 350 Balance 260 Intake, IV 10 Intake, Oral 600 Output, Urine 350 Exam Other Physical Findings: General - Alert, awake and oriented HEENT - normocephalic, atraumatic Cardiovascular - S1, S2, systolic murmur Lungs - diminished bibasilar breath sounds Abdomen - soft, bowel sounds positive, no tenderness Extremities - bilateral edema Results Last 24 Hrs of Lab Results: Laboratory Tests 11/04/16 0712: Anion Gap 13, Estimated GFR > 60, BUN/Creatinine Ratio 20.0, PT 14.3 H, INR 1.37 H, CBC w Diff NO MAN DIFF REQ, RBC 4.03 L, MCV 101.6 H, MCH 33.8 H, RDW 14.2, MPV 7.1 L, Gran % 62.4, Lymphocytes % 27.9, Monocytes % 9.0, Eosinophils % 0, Basophils % 0.7, Absolute Granulocytes 3.3, Absolute Lymphocytes 1.5, Absolute Monocytes 0.5, Absolute Eosinophils 0, Absolute Basophils 0, PUBS MCHC 33.3 Impression/Plan Impression/Plan Impression/Plan: Impression 85-year-old man * Transudate of pleural fluid in the right chest * Hypoxemia requiring oxygen * Element of fluid overload Plan - would stop abx at this time - check ECHO, ?pulm htn - ins/outs, negative fluid balance, diuresis - spo2 goal >92 % - resume warfarin - repeat cxr 11/05
--- NOTE | 2016-11-04 14:10 | PN- Housestaff ---
Subjective Follow-up For: Acute hypoxemic respiratory failure secondary to community-acquired pneumonia Atrial fibrillation Hematuria Complaints: DIFFICULTY IN BREATHING, AND HEMATURIA Subjective: Patient is seen and examined at the bedside and he was complaining of difficulty in the breathing and blood in the urine. Review of Systems Constitutional: Reports: see HPI, malaise, weakness. Comments: Patient is complaining of hematuria. Denies of any abdominal pain, constipation, distention of abdomen. Objective Last 24 Hrs of Vital Signs/I&O Vital Signs Date Time Temp Pulse Resp B/P Pulse O2 O2 Flow FiO2 Ox Delivery Rate 11/04 0955 120/60 11/04 799 Nasal 5.0L Cannula 11/04 799 98.2 64 20 120/60 94 Nasal 5.0L Cannula 11/04 0756 93 Nasal 4.5L Cannula 11/04 0103 98.2 56 18 118/70 93 Nasal 3.0L Cannula 11/04 0000 92 Nasal 3.0L Cannula 11/03 2215 Nasal 2.0L Cannula 11/03 1616 98.9 67 18 112/66 94 Nasal 3.0L Cannula 11/03 1600 Nasal 3.0L Cannula Intake & Output 11/04 1600 11/04 0800 11/04 0000 Intake Total 610 Output Total 350 Balance 260 Intake, IV 10 Intake, Oral 600 Output, Urine 350 Physical Exam General Appearance: Alert, Oriented X3, Cooperative, Mild Distress HEENT: Atraumatic, PERRLA, EOMI Neck: Supple, No JVD, No thryomegaly Cardiovascular: irregular Lungs: bilateral wheezing and decreased and air entry on the left side Abdomen: Soft, distended Neurological: Normal Speech Extremities: bilateral pedal edema Vascular: Normal Pulses, Pulses Symmetrical Assessment/Plan Assessment: This is a 85-year-old Nonsmoker male with past medical history significant for atrial fibrillation on warfarin 5 mg, status post permanent pacemaker placement, insomnia, overactive bladder, hypertension, hypothyroidism presented to [facility] emergency department with chief complaint of fever, dry cough, congestion, shortness of breath on exertion, wheezing for 10 days. Of note patient has been to her primary care doctor On October 10 for fever, cough and chest x-ray was done which showed right sided plural effusion and he was sent home on oral antibiotics-5 days of oral azithromycin. However patient still has ongoing dry cough not associated with any sputum production and lung congestion for 10 days. No relief with antibiotics and cough suppressants. Also complains shortness of breath on exertion associated with wheezing. Problem list 1. Community-acquired pneumonia 2. Acute hypoxic respiratory failure 3. Possible parapneumonic effusion 4. Hypothyroidism 5. Hypertension 6. Overactive bladder 7. Atrial fibrillation 8. Insomnia Vitals stable, 11/04/2016 * We started the patient on Coumadin, discussed the dose with Dr. Mesa advised 7 milligrams a day. * Later today patient had hematuria. So, Dr. Fox advised to stop the warfarin for today and place urologic consult. * Talked to Dr. Bolanos over the phone about hematuria. According to her, as the patient is not on Butler and having no difficulty in the urination. So does not need cystoscopy advised to get ultrasound of kidney and bladder. * Follow-up with urology recommendation * We will also sent a urine for analysis. * We will check PT/INR and chest x-ray tomorrow * Patient Is complaining of difficulty in the breathing according to Dr. Fox will increase the dose of Lasix to 40 milligrams per day * We stopped antibiotic as advised by Dr. Marroquin * We will follow echocardiogram to rule out pulmonary hypertension Problem List: 1. Atrial fibrillation 2. Acute and chronic respiratory failure with hypoxia 3. Community acquired pneumonia 4. Hematuria Pain Ratin Pain Location: Headache Pain Goal: Remain pain free Pain Plan: [id number] Tomorrow's Labs & Rationales: INR, check chest x-ray Consulting Request: Consulting Specialty: Cardiology
--- NOTE | 2016-11-04 14:31 | PN- Cardiology ---
Subjective Subjective: The patient is still complaining of shortness of breath. He has no chest pain. He did have a thoracentesis yesterday with 860 mL removed. He noted that this morning he had hematuria when urinating. His INR is only 1.3 today as it had previously been held for the thoracentesis. He is not having any arrhythmias on the monitor. He remains in atrial fibrillation with pacing. Objective Vital Signs and I&Os Vital Signs Date Time Temp Pulse Resp B/P Pulse O2 O2 Flow FiO2 Ox Delivery Rate 11/04 0955 120/60 11/04 799 Nasal 5.0L Cannula 11/04 799 98.2 64 20 120/60 94 Nasal 5.0L Cannula 11/04 0756 93 Nasal 4.5L Cannula 11/04 0103 98.2 56 18 118/70 93 Nasal 3.0L Cannula 11/04 0000 92 Nasal 3.0L Cannula 11/03 2215 Nasal 2.0L Cannula 11/03 1616 98.9 67 18 112/66 94 Nasal 3.0L Cannula 11/03 1600 Nasal 3.0L Cannula 11/03 1432 100.1 Intake & Output 11/04 1600 11/04 0800 11/04 0000 11/03 1600 11/03 0800 11/03 0000 Intake Total 610 500 0 480 Output Total 350 425 250 Balance 260 75 -250 480 Intake, IV 10 Intake, Oral 600 500 0 480 Number 0 Bowel Movements Output, Urine 350 425 250 Patient 210 lb Weight Physical Exam: On physical he is comfortable in bed HEENT exam is normal Chest reveals scattered rhonchi and mild to moderate expiratory wheezing Heart reveals regular rhythm and soft systolic murmur at the base There is trace to 1+ peripheral edema Current Medications: Current Medications Sig/Emily Start time Last Medication Dose Route Stop Time Status Admin Acetaminophen 650 MG Q8P PRN 11/02 1545 AC 11/02 PO 2249 Acetaminophen 650 MG Q8P PRN 11/02 1445 AC 11/04 PO 0955 Albuterol Sulfate 3 ML BID 11/02 2200 AC 11/04 INH 0752 Azithromycin 500 MG DAILY 11/02 134 DC 11/04 Sodium Chloride 250 ML IV 0955 Benzonatate 100 MG TID 11/02 1144 AC 11/04 PO 0955 Ceftriaxone Sodium 1,000 MG DAILY 11/02 1349 DC 11/04 IV 0955 Furosemide 20 MG DAILY 11/03 1836 AC 11/04 PO 0955 Guaifenesin 600 MG Q12 11/02 1140 11/04 PO 0955 Levothyroxine Sodium 0.05 MG DAILY AC 11/03 0700 11/04 PO 0701 Lisinopril 40 MG DAILY 11/02 1245 11/04 PO 0955 Morphine Sulfate 1 MG Q8P PRN 11/02 1545 IV Oxybutynin Chloride 5 MG BID 11/02 2200 11/04 PO 0955 Patient Medication 1 UNIT ONE NR 11/04 1345 [place] Teaching ED 11/04 1400 Patient Medication 1 UNIT ONE NR 11/03 1915 [facility] ED 11/03 1930 Warfarin Sodium 7 MG COUMADIN 1700 ONE 11/04 1700 PO 11/04 1701 Warfarin Sodium 6 MG COUMADIN 1700 ONE 11/03 1700 SD 11/03 PO 11/03 1701 1857 Results Last 48 Hrs of Labs/Mics: Laboratory Tests 11/04/16 0712: Anion Gap 13, Estimated GFR > 60, BUN/Creatinine Ratio 20.0, PT 14.3 H, INR 1.37 H, CBC w Diff NO MAN DIFF REQ, RBC 4.03 L, MCV 101.6 H, MCH 33.8 H, RDW 14.2, MPV 7.1 L, Gran % 62.4, Lymphocytes % 27.9, Monocytes % 9.0, Eosinophils % 0, Basophils % 0.7, Absolute Granulocytes 3.3, Absolute Lymphocytes 1.5, Absolute Monocytes 0.5, Absolute Eosinophils 0, Absolute Basophils 0, PUBS MCHC 33.3 11/03/16 1130: Pleural pH 7.35 11/03/16 1130: Fluid WBC 571 H, Fld Mesothelial Cells 26, Fld Total RBCs Counted 328 H 11/03/16 1130: Lymphocytes 73, Misc Hematology Test 1, Phlebotomy Draw Site RT THORA, Fluid Glucose 141, Fluid Total Protein 3.3, Fluid Albumin 1.6, Fluid LDH 198, Fluid Amylase < 30 11/03/16 0600: Anion Gap 10, Estimated GFR > 60, BUN/Creatinine Ratio 20.0, Lactate Dehydrogenase 455, Total Protein 6.7, Albumin 3.5, PT 15.4 H, INR 1.47 H, CBC w Diff NO MAN DIFF REQ, RBC 3.67 L, MCV 101.0 H, MCH 34.0 H, RDW 14.3, MPV 6.8 L, Gran % 74.0, Lymphocytes % 20.0 L, Monocytes % 6.0, Eosinophils % 0, Basophils % 0 L, Absolute Granulocytes 3.1, Absolute Lymphocytes 0.8 L, Absolute Monocytes 0.3, Absolute Eosinophils 0, Absolute Basophils 0, PUBS MCHC 33.6 11/02/16 1433: Acetaminophen Cancelled Microbiology 11/02 1444 URINE ROUT: Legionella Antigen - COMP 11/02 1443 URINE ROUT: Streptococcus pneumoniae Antigen (M - COMP Assessment/Plan Assessment/Plan The patient still is having shortness of breath and has abnormal lung sounds. He has been started on a diuretic. He is having some hematuria although his INR is not in the therapeutic range. I recommend increasing his Lasix to 40 mg daily. I recommend holding his warfarin because of the hematuria. He should probably have a urology consult. The rest of his treatment will be per pulmonology. The patient does not need telemetry monitoring at this point. Continue telemetry? No
--- NOTE | 2016-11-04 16:10 | ULTRASOUND REPORT ---
EXAMINATION: US RETROPERITONEAL COMPLETE (RENAL) CLINICAL INFORMATION: 85-year-old male presented with hematuria.. COMPARISON: Renal ultrasound done on 01/20/2014. TECHNIQUE: Real-time imaging of the kidneys and bladder. FINDINGS: RIGHT KIDNEY: 11.5 x 5.1 x 3.9 cm (SAG x AP x TRV). The kidney is normal in size, contour, and echogenicity. Renal cortical thickness is normal. No calculi or focal parenchymal lesions. No hydronephrosis. LEFT KIDNEY: 11.1 x 5.3 x 5.4 cm (SAG x AP x TRV). The kidney is normal in size, contour, and echogenicity. Renal cortical thickness is normal. No calculi or focal parenchymal lesions. No hydronephrosis. BLADDER: Partially distended. Bilateral ureteral jets are demonstrated. Prevoid bladder volume is 27.9 mL. The prostate is visualized, measures 3.7 x 4.5 x 4.3 cm, given the slight subjective difference in measurement, overall appears stable (previously measured 5.7 x 5.7 x 4.6 cm). IMPRESSION: 1. Sonographically unremarkable bilateral kidneys, unchanged since prior study. 2. Mildly enlarged prostate.
--- NOTE | 2016-11-04 16:41 | PN- Att Addend ---
Attending Addendum Attending Brief Note 85-year-old male with past medical history significant for aortic stenosis, A. fib on Coumadin, is being admitted on the floor for pneumonia and pleural effusion. Patient underwent right-sided thoracocentesis and the fluid turned out to be transudative. We have stopped his antibiotics today and in the process of getting an echo done to rule out for any underlying pulmonary hypertension. Patient's Coumadin was restarted yesterday which was on hold for thoracocentesis. Cardiology has also been on board and we are giving him diuretics which has been increased to 40 mg. Later in the day warfarin was held as the patient developed hematuria. Urology has been consulted.
[2016-11-04 16:50] VITALS: BP 136/60
[2016-11-05 00:42] VITALS: BP 122/62
[2016-11-05 07:57] VITALS: BP 144/70
[2016-11-05 08:20] LABS: PT 13.7 SEC (9.4-12.5)
[2016-11-05 08:30] LABS: ABSOLUTE BASOPHIL COUNT 0 /CUMM (0.0-0.2); ABSOLUTE EOSINOPHIL COUNT 0 /CUMM (0.0-0.7); ABSOLUTE GRANULOCYTE CT 2.6 /CUMM (1.4-6.5); ABSOLUTE LYMPH COUNT 1.8 /CUMM (1.2-3.4); ABSOLUTE MONOCYTE COUNT 0.6 /CUMM (0.10-0.60); BASOPHIL % 0.4 % (0.0-2.0); EOSINOPHIL % 0.3 % (0-5); HEMATOCRIT 41.9 % (42-52); MEAN CORPUSCULAR HGB 33.9 PG (27.0-31.0); MEAN CORPUSCULAR HGB CONC 33.3 G/DL (33.0-37.0); MEAN CORPUSCULAR VOLUME 101.6 FL (80.0-94.0); MEAN PLATELET VOLUME 7.1 FL (7.4-10.4); PLATELET COUNT 157 /CUMM (130-400); RBC DISTRIBUTION WIDTH 13.9 % (11.5-14.5); RED BLOOD CELL CT 4.13 /CUMM (4.70-6.10); WHITE BLOOD CELL COUNT 5.1 /CUMM (4.8-10.8)
--- NOTE | 2016-11-05 10:59 | PN- Pulmonary ---
Subjective HPI/Critical Care Issues: pt seen and examined 4LNC saturating 94% hemodynamically stable low grade temp no wright no n/v/d/c dysuria Objective Current Medications: Current Medications Sig/Emily Start time Last Medication Dose Route Stop Time Status Admin Acetaminophen 650 MG Q8P PRN 11/02 1545 AC 11/02 PO 2249 Acetaminophen 650 MG Q8P PRN 11/02 1445 AC 11/05 PO 0011 Albuterol Sulfate 3 ML BID 11/02 2200 AC 11/05 INH 1028 Azithromycin 500 MG DAILY 11/02 1349 DC 11/04 Sodium Chloride 250 ML IV 0955 Benzonatate 100 MG TID 11/02 1144 AC 11/05 PO 0750 Ceftriaxone Sodium 1,000 MG DAILY 11/02 1349 DC 11/04 IV 0955 Furosemide 40 MG DAILY 11/05 1000 AC 11/05 PO 0750 Furosemide 20 MG ONCE ONE 11/04 1700 DC 11/04 IV 11/04 1701 1657 Furosemide 40 MG .STK-MED ONE 11/04 1458 DC IV 11/04 1459 Furosemide 20 MG DAILY 11/03 1836 DC 11/04 PO 0955 Guaifenesin 600 MG Q12 11/02 1140 AC 11/05 PO 0750 Levothyroxine Sodium 0.05 MG DAILY AC 11/03 0700 AC 11/05 PO 0731 Lisinopril 40 MG DAILY 11/02 1245 AC 11/05 PO 0752 Melatonin 5 MG AT BEDTIME 11/04 2200 AC 11/04 PO 2119 Morphine Sulfate 1 MG Q8P PRN 11/02 1545 AC 11/04 IV 1754 Oxybutynin Chloride 5 MG BID 11/02 2200 AC 11/05 PO 0750 Patient Medication 1 UNIT ONE NR 11/04 1345 DC Teaching ED 11/04 1400 Warfarin Sodium 7 MG COUMADIN 1700 ONE 11/04 1700 CAN PO 11/04 1701 Vital Signs & I&O Last 24 Hrs of Vitals and I&O: Vital Signs Date Time Temp Pulse Resp B/P Pulse O2 O2 Flow FiO2 Ox Delivery Rate 11/05 08 Nasal 4.0L Cannula 11/05 075 98.3 66 20 144/70 94 Nasal 4.0L Cannula 11/05 0752 144/60 11/05 0042 100.9 66 20 122/62 94 Nasal Cannula 11/05 0011 100.9 11/05 0000 Nasal 4.0L Cannula 11/04 1999 Nasal 2.0L Cannula 11/04 1816 96 Nasal 4.0L Cannula 11/04 1650 98.1 61 22 136/60 94 Nasal 5.0L Cannula 11/04 1599 Nasal 5.0L Cannula Intake & Output 11/05 0800 11/05 0000 Intake Total 50 120 Output Total 2150 Balance 50 -2030 Intake, Oral 50 120 Output, Urine 2150 Exam Other Physical Findings: General - Alert, awake and oriented HEENT - normocephalic, atraumatic Cardiovascular - S1, S2, systolic murmur Lungs - diminished bibasilar breath sounds Abdomen - soft, bowel sounds positive, no tenderness Extremities - bilateral edema Results Last 24 Hrs of Lab Results: Laboratory Tests 11/05/16 0650: PT 13.7 H, INR 1.31 H, CBC w Diff NO MAN DIFF REQ, RBC 4.13 L, MCV 101.6 H, MCH 33.9 H, RDW 13.9, MPV 7.1 L, Gran % 52.0, Lymphocytes % 35.7, Monocytes % 11.6 H, Eosinophils % 0.3, Basophils % 0.4, Absolute Granulocytes 2.6, Absolute Lymphocytes 1.8, Absolute Monocytes 0.6, Absolute Eosinophils 0, Absolute Basophils 0, PUBS MCHC 33.3 11/04/16 1645: Urine Color YEL, Urine Clarity CLEAR, Urine pH 6.0, Ur Specific [place] 1.020, Urine Protein NEG, Urine Ketones NEG, Urine Nitrite NEG, Urine Bilirubin NEG, Urine Urobilinogen 0.2, Ur Leukocyte Esterase NEG, Ur Microscopic SEDIMENT EXAMINED, Urine RBC 25-50 H, Urine WBC RARE, Ur Epithelial Cells RARE, Urine Hemoglobin MOD H, Urine Glucose NEG Impression/Plan Impression/Plan Impression/Plan: Impression 85-year-old man * Transudate of pleural fluid in the right chest * Hypoxemia requiring oxygen * Element of fluid overload * hematuria/dysuria, ?UTI Plan - off - check ECHO, ?pulm htn - ins/outs, negative fluid balance, diuresis - spo2 goal >92 % - hematuria - urology input per primary team, coumadin was held - repeat cxr TODAY - culture, urology input, ceftriaxone acceptable to restart
--- NOTE | 2016-11-05 12:00 | PN- Housestaff ---
Subjective Follow-up For: pneumonia and hematuria Subjective: patient was seen and examined, he spiked fever overnight 100.9, he is still complaining of blood in his urine and lower abdominal pain that used to start when he get full bladder, pain improved after urination. continue to have cough, with scant sputum yellow with some blood occtionally, on 4 l oxygen we started ceftriaxone 1000 IV daily, UA, urine and blood culture were sent, urology Dr. Antonio was called. and chest x ray was ordered Review of Systems Constitutional: Denies: see HPI. Objective Last 24 Hrs of Vital Signs/I&O Vital Signs Date Time Temp Pulse Resp B/P Pulse O2 O2 Flow FiO2 Ox Delivery Rate 11/05 799 Nasal 4.0L Cannula 11/05 0757 98.3 66 20 144/70 94 Nasal 4.0L Cannula 11/05 0752 144/60 11/05 0042 100.9 66 20 122/62 94 Nasal Cannula 11/05 0011 100.9 11/05 0000 Nasal 4.0L Cannula 11/04 2000 Nasal 2.0L Cannula 11/04 1816 96 Nasal 4.0L Cannula 11/04 1650 98.1 61 22 136/60 94 Nasal 5.0L Cannula 11/04 1600 Nasal 5.0L Cannula Intake & Output 11/05 1600 11/05 0800 11/05 0000 Intake Total 50 120 Output Total 2150 Balance 50 -2030 Intake, Oral 50 120 Output, Urine 2150 Physical Exam General Appearance: Alert, Oriented X3, Cooperative, No Acute Distress HEENT: PERRLA, EOMI Neck: Supple, No JVD, No LAD Cardiovascular: Regular Rate, Normal S1, Normal S2, No Murmurs Lungs: decrease air entery and expiratory wheeze Abdomen: Normal Bowel Sounds, Soft, No Tenderness Extremities: No Clubbing, No Cyanosis, No Edema Assessment/Plan Assessment: This is a 85-year-old Nonsmoker male with past medical history significant for atrial fibrillation on warfarin 5 mg, status post permanent pacemaker placement, insomnia, overactive bladder, hypertension, hypothyroidism presented to [facility] emergency department with chief complaint of fever, dry cough, congestion, shortness of breath on exertion, wheezing for 10 days. Of note patient has been to her primary care doctor On October 10 for fever, cough and chest x-ray was done which showed right sided plural effusion and he was sent home on oral antibiotics-5 days of oral azithromycin. However patient still has ongoing dry cough not associated with any sputum production and lung congestion for 10 days. No relief with antibiotics and cough suppressants. Also complains shortness of breath on exertion associated with wheezing. Problem list 1. Community-acquired pneumonia 2. Acute hypoxic respiratory failure 3. Possible parapneumonic effusion 4. Hypothyroidism 5. Hypertension 6. Overactive bladder 7. Atrial fibrillation 8. Insomnia Vitals stable, 11/04/2016 * We started the patient on Coumadin, discussed the dose with Dr. Mesa advised 7 milligrams a day. * Later today patient had hematuria. So, Dr. Fox advised to stop the warfarin for today and place urologic consult. * Talked to Dr. Bolanos over the phone about hematuria. According to her, as the patient is not on [place] and having no difficulty in the urination. So does not need cystoscopy advised to get ultrasound of kidney and bladder. * Follow-up with urology recommendation * We will also sent a urine for analysis. * We will check PT/INR and chest x-ray tomorrow * Patient Is complaining of difficulty in the breathing according to Dr. Fox will increase the dose of Lasix to 40 milligrams per day * We stopped antibiotic as advised by Dr. Marroquin * We will follow echocardiogram to rule out pulmonary hypertension Problem List: 1. Atrial fibrillation 2. Community acquired pneumonia 3. Hematuria Pain Ratin Pain Location: suprapubic Pain Goal: Remain pain free Pain Plan: see medication Tomorrow's Labs & Rationales: cbc,cmp,INR Consulting Request: Consulting Specialty: Cardiology
--- NOTE | 2016-11-05 12:38 | PN- Att Addend ---
Attending Addendum Attending Brief Note 85-year-old male with past medical history significant for aortic stenosis, A. fib on Coumadin, is being admitted on the floor for pneumonia and pleural effusion. Patient underwent right-sided thoracocentesis and the fluid turned out to be transudative. Antibiotics initially were discontinued yesterday which has been started again today given symptoms of urinary tract infection and hematuria. Coumadin has been on continued to held due to underlying hematuria. Urology consult has been placed. We will also get an echo done to rule out for any underlying pulmonary hypertension given transudative pleural effusion. Patient's Cardiology has also been on board and we are giving him diuretics which has been increased to 40 mg. waiting on further recommendations from urology. Pulmonology is on board as well.
--- NOTE | 2016-11-05 14:15 | RADIOLOGY REPORT ---
EXAMINATION: XR CHEST CLINICAL INFORMATION: Shortness of breath and cough. Pulmonary hypertension. COMPARISON: 11/03/2006 and multiple priors TECHNIQUE: AP and lateral portable views of the chest upright FINDINGS: Right unipolar pacemaker unchanged. Stable prominence of the cardiac silhouette. Pulmonary artery prominence evident on 11/02/[address] not well depicted on plain radiography. Persistent right basilar opacity with effusion and probable compressive atelectasis. No recent CT revealed early emphysema. Degenerative changes again noted in the shoulders. IMPRESSION: There is a persistent small right pleural effusion and right basilar compressive atelectasis.
--- NOTE | 2016-11-05 14:46 | PN- Cardiology ---
Subjective Subjective: The patient is feeling about the same. He still is a little short of breath. He did receive some IV Lasix yesterday and is on oral Lasix now. He states he is still having some hematuria and some pain on urination. His warfarin is on hold and his INR is subtherapeutic at 1.31. It does not appear he has been seen by urology yet. Objective Vital Signs and I&Os Vital Signs Date Time Temp Pulse Resp B/P Pulse O2 O2 Flow FiO2 Ox Delivery Rate 11/05 1233 98.4 11/05 799 Nasal 4.0L Cannula 11/05 075 98.3 66 20 144/70 94 Nasal 4.0L Cannula 11/05 0752 144/60 11/05 0042 100.9 66 20 122/62 94 Nasal Cannula 11/05 0011 100.9 11/05 0000 Nasal 4.0L Cannula 11/04 2000 Nasal 2.0L Cannula 11/04 1816 96 Nasal 4.0L Cannula 11/04 1650 98.1 61 22 136/60 94 Nasal 5.0L Cannula 11/04 1600 Nasal 5.0L Cannula Intake & Output 11/05 1600 11/05 0800 11/05 0000 11/04 1600 11/04 0811/04 0000 Intake Total 50 120 720 610 Output Total 2150 350 Balance 50 -2030 720 260 Intake, IV 10 Intake, Oral 50 120 720 600 Output, Urine 2150 350 Physical Exam: He is in no distress Chest reveals mild expiratory wheezing Heart reveals irregular rhythm with systolic ejection murmur at the base Extremities reveal only trace edema Current Medications: Current Medications Sig/Emily Start time Last Medication Dose Route Stop Time Status Admin Acetaminophen 650 MG Q8P PRN 11/02 1545 AC 11/02 PO 2249 Acetaminophen 650 MG Q8P PRN 11/02 1445 AC 11/05 PO 0011 Albuterol Sulfate 3 ML BID 11/02 2200 AC 11/05 INH 1028 Benzonatate 100 MG TID 11/02 1144 AC 11/05 PO 0750 Ceftriaxone Sodium 1,000 MG DAILY 11/05 1131 AC 11/05 IV 1233 Furosemide 40 MG DAILY 11/05 1000 AC 11/05 PO 0750 Furosemide 20 MG ONCE ONE 11/04 1700 DC 11/04 IV 11/04 1701 1657 Furosemide 40 MG .STK-MED ONE 11/04 1458 DC IV 11/04 1459 Furosemide 20 MG DAILY 11/03 1836 DC 11/04 PO 0955 Guaifenesin 600 MG Q12 11/02 1140 AC 11/05 PO 0750 Levothyroxine Sodium 0.05 MG DAILY AC 11/03 0700 AC 11/05 PO 0731 Lisinopril 40 MG DAILY 11/02 1245 AC 11/05 PO 0752 Melatonin 5 MG AT BEDTIME 11/04 2200 AC 11/04 PO 2119 Morphine Sulfate 1 MG Q8P PRN 11/02 1545 AC 11/04 IV 1754 Oxybutynin Chloride 5 MG BID 11/02 220 AC 11/05 PO 0750 Results Last 48 Hrs of Labs/Mics: Laboratory Tests 11/05/16 1200: Urine Color Pending, Urine Clarity Pending, Urine pH Pending, Ur Specific [place] Pending, Urine Protein Pending, Urine Ketones Pending, Urine Nitrite Pending, Urine Bilirubin Pending, Urine Urobilinogen Pending, Ur Leukocyte Esterase Pending, Ur Microscopic Pending, Urine Hemoglobin Pending, Urine Glucose Pending 11/05/16 0650: PT 13.7 H, INR 1.31 H, CBC w Diff NO MAN DIFF REQ, RBC 4.13 L, MCV 101.6 H, MCH 33.9 H, RDW 13.9, MPV 7.1 L, Gran % 52.0, Lymphocytes % 35.7, Monocytes % 11.6 H, Eosinophils % 0.3, Basophils % 0.4, Absolute Granulocytes 2.6, Absolute Lymphocytes 1.8, Absolute Monocytes 0.6, Absolute Eosinophils 0, Absolute Basophils 0, PUBS MCHC 33.3 11/04/16 1645: Urine Color YEL, Urine Clarity CLEAR, Urine pH 6.0, Ur Specific [place] 1.020, Urine Protein NEG, Urine Ketones NEG, Urine Nitrite NEG, Urine Bilirubin NEG, Urine Urobilinogen 0.2, Ur Leukocyte Esterase NEG, Ur Microscopic SEDIMENT EXAMINED, Urine RBC 25-50 H, Urine WBC RARE, Ur Epithelial Cells RARE, Urine Hemoglobin MOD H, Urine Glucose NEG 11/04/16 0712: Anion Gap 13, Estimated GFR > 60, BUN/Creatinine Ratio 20.0, PT 14.3 H, INR 1.37 H, CBC w Diff NO MAN DIFF REQ, RBC 4.03 L, MCV 101.6 H, MCH 33.8 H, RDW 14.2, MPV 7.1 L, Gran % 62.4, Lymphocytes % 27.9, Monocytes % 9.0, Eosinophils % 0, Basophils % 0.7, Absolute Granulocytes 3.3, Absolute Lymphocytes 1.5, Absolute Monocytes 0.5, Absolute Eosinophils 0, Absolute Basophils 0, PUBS MCHC 33.3 Assessment/Plan Assessment/Plan The patient still is having shortness of breath and has abnormal lung sounds. He has been started on a diuretic. He is having some hematuria and painful urination, although his INR is not in the therapeutic range. I recommend continuing his Lasix at 40 mg daily. I recommend holding his warfarin because of the hematuria. He should have a urology consult. He had an echocardiogram just 2 months ago and I don't think he needs another one at this time. The rest of his treatment will be per pulmonology. The patient does not need telemetry monitoring at this point. Continue telemetry? No
[2016-11-05 16:00] VITALS: BP 120/60
[2016-11-05 23:48] VITALS: BP 124/60
[2016-11-06 07:56] LABS: ABSOLUTE BASOPHIL COUNT 0 /CUMM (0.0-0.2); ABSOLUTE EOSINOPHIL COUNT 0 /CUMM (0.0-0.7); ABSOLUTE LYMPH COUNT 1.6 /CUMM (1.2-3.4); ABSOLUTE MONOCYTE COUNT 0.4 /CUMM (0.10-0.60); BASOPHIL % 0.4 % (0.0-2.0); EOSINOPHIL % 0.6 % (0-5); GRANULOCYTE % 59.5 % (42.2-75.2); HEMATOCRIT 39.5 % (42-52); MEAN CORPUSCULAR HGB 34.4 PG (27.0-31.0); MEAN CORPUSCULAR HGB CONC 34.1 G/DL (33.0-37.0); MEAN CORPUSCULAR VOLUME 100.6 FL (80.0-94.0); MEAN PLATELET VOLUME 7.2 FL (7.4-10.4); PLATELET COUNT 163 /CUMM (130-400); RBC DISTRIBUTION WIDTH 13.7 % (11.5-14.5); RED BLOOD CELL CT 3.93 /CUMM (4.70-6.10); WHITE BLOOD CELL COUNT 5.1 /CUMM (4.8-10.8)
--- NOTE | 2016-11-06 08:15 | PN- Pulmonary ---
Subjective HPI/Critical Care Issues: Patient continues to complain of dysuria and hematuria. Pleural fluid is transudate he continues to require low flow oxygen Objective Current Medications: Current Medications Sig/Emily Start time Last Medication Dose Route Stop Time Status Admin Acetaminophen 650 MG Q8P PRN 11/02 1545 AC 11/02 PO 2249 Acetaminophen 650 MG Q8P PRN 11/02 1445 AC 11/05 PO 2215 Albuterol Sulfate 3 ML BID 11/02 2200 AC 11/05 INH 2203 Benzonatate 100 MG TID 11/02 1144 AC 11/05 PO 2213 Ceftriaxone Sodium 1,000 MG DAILY 11/05 1131 AC 11/05 IV 1233 Furosemide 40 MG DAILY 11/05 1000 AC 11/05 PO 0750 Guaifenesin 600 MG Q12 11/02 1140 AC 11/05 PO 2213 Levothyroxine Sodium 0.05 MG DAILY AC 11/03 0700 AC 11/06 PO 0606 Lisinopril 40 MG DAILY 11/02 1245 AC 11/05 PO 0752 Melatonin 5 MG AT BEDTIME 11/04 2200 AC 11/05 PO 2214 Morphine Sulfate 1 MG Q8P PRN 11/02 1545 AC 11/06 IV 0246 Oxybutynin Chloride 5 MG BID 11/02 2200 AC 11/05 PO 2213 Vital Signs & I&O Last 24 Hrs of Vitals and I&O: Vital Signs Date Time Temp Pulse Resp B/P Pulse O2 O2 Flow FiO2 Ox Delivery Rate 11/06 0721 Nasal 4.0L Cannula 11/06 0000 Nasal 2.0L Cannula 11/05 2348 99.9 58 20 124/60 94 Nasal Cannula 11/05 2202 95 Nasal 4.0L Cannula 11/05 1600 Nasal 4.0L Cannula 11/05 1600 98.2 63 20 120/60 95 Nasal 4.0L Cannula 11/05 1233 98.4 11/05 1035 95 Nasal 3.5L Cannula Intake & Output 11/06 1600 11/06 0800 11/06 0000 Intake Total Output Total 100 Balance -100 Number 0 Bowel Movements Output, Stool 0 Output, Urine 100 Oxygen saturation on 4 L 94% exam of his chest shows better aeration at the right base with occasional crackles cardiac exam shows regular S1 and S2 without murmurs Impression/Plan Impression/Plan Impression/Plan: 85-year-old gentleman with transudative pleural effusion continues to have complaints of shortness of breath and continues to require low-flow oxygen. The etiology of his transudative effusion is uncertain and for that reason would recommend repeat cardiac ultrasound. Once urologic evaluation completed Coumadin should be resumed. If he continues to require low-flow oxygen obtain d -dimer Recommendations: Diagnostic and therapeutic thoracentesis. Sent for routine, pH and cytology as well as cultures. Consider mild negative fluid balance with elevated BNP and edema. If fluid is a transudate would obtain cardiac ultrasound to better understand the etiology of the effusion. Antibiotics can be continued pending review of thoracentesis.
[2016-11-06 08:16] LABS: PT 12.5 SEC (9.4-12.5)
[2016-11-06 08:32] VITALS: BP 112/58
--- NOTE | 2016-11-06 08:32 | NUR ---
0030 PT PULL KOWALSKI CATH OUT WITH SMALL AMOUNT OF BLEEDING STOPPED BY APPLYING PRESSURE.PREET PRINCE MADE AWARE.TO PLACE KOWALSKI CATH BACK IF PT STARTS TO RETAIN URINE. 0400 PATIENT VOIDED X2 ON THE FLOOR. 0600 VOIDED 200CC.
--- NOTE | 2016-11-06 09:31 | PN- Housestaff ---
ERVIN HONEYCUTT 11/06/16 0930: Subjective Follow-up For: 1. Community-acquired pneumonia 2. Acute hypoxic respiratory failure 3. Possible parapneumonic effusion vs transudative effusion 4. Hematuria and painful urination Complaints: pain scale (0-10) Tele-Events Since Last Visit: Atrial fibrillation Paced rhythm Rate 60 PVCs No acute events on equipment monitor phototypesetting overnight discontinued telemetry monitoring this morning Subjective: Patient was seen and examined this morning. He is alert awake and oriented to time place and person. No acute events monitored overnight. He remained afebrile. He does report shortness of breath on exertion, dry cough , congestion of lungs. Reports hematuria and painful urination. Denied any chest pain or pressure, racing of heart, headache, dizziness or lightheadedness. No change in bowel habits. Vitals remained afebrile. Heart rate 58, respiratory rate 22, blood pressure 124/68, saturating at 94% on 4L oxygen discontinued telemetry monitoring this morning. Review of Systems Constitutional: Denies: see HPI. Objective Last 24 Hrs of Vital Signs/I&O Vital Signs Date Time Temp Pulse Resp B/P Pulse O2 O2 Flow FiO2 Ox Delivery Rate 11/06 0832 98.6 63 12 112/58 94 Nasal Cannula 11/06 0721 Nasal 4.0L Cannula 11/06 0000 Nasal 2.0L Cannula 11/05 2348 99.9 58 20 124/60 94 Nasal Cannula 11/05 2202 95 Nasal 4.0L Cannula 11/05 1600 Nasal 4.0L Cannula 11/05 1600 98.2 63 20 120/60 95 Nasal 4.0L Cannula 11/05 1233 98.4 11/05 1035 95 Nasal 3.5L Cannula Intake & Output 11/06 1600 11/06 0800 11/06 0000 Intake Total 240 200 100 Output Total 100 300 500 Balance 140 -100 -400 Intake, Oral 240 200 100 Number 0 Bowel Movements Output, Stool 0 Output, Urine 100 300 500 Physical Exam General Appearance: Alert, Oriented X3, Cooperative, No Acute Distress Skin: No Rashes, No Breakdown HEENT: Atraumatic, Mucous Membr. moist/pink Neck: Supple, No JVD Lymphatic: Cervical nl Cardiovascular: Normal S1, Normal S2, irregular rhythm Lungs: decreased air entry Abdomen: Normal Bowel Sounds, Soft, No Tenderness Extremities: No Clubbing, No Cyanosis, No Edema Vascular: Normal Pulses Current Medications: Current Medications Sig/Emily Start time Last Medication Dose Route Stop Time Status Admin Acetaminophen 650 MG Q8P PRN 11/02 1545 AC 11/02 PO 2249 Acetaminophen 650 MG Q8P PRN 11/02 1445 AC 11/06 PO 0828 Albuterol Sulfate 3 ML BID 11/02 2200 AC 11/05 INH 2203 Benzonatate 100 MG TID 11/02 1144 AC 11/06 PO 1001 Ceftriaxone Sodium 1,000 MG DAILY 11/05 1131 AC 11/06 IV 1001 Furosemide 40 MG DAILY 11/05 1000 AC 11/06 PO 1002 Guaifenesin 600 MG Q12 11/02 1140 AC 11/06 PO 1002 Levothyroxine Sodium 0.05 MG DAILY AC 11/03 0700 AC 11/06 PO 0606 Lisinopril 40 MG DAILY 11/02 1245 AC 11/06 PO 1002 Melatonin 5 MG AT BEDTIME 11/04 2200 AC 11/05 PO 2214 Morphine Sulfate 1 MG Q8P PRN 11/02 1545 AC 11/06 IV 0246 Oxybutynin Chloride 5 MG BID 11/02 2200 AC 11/06 PO 1002 Phenazopyridine HCl 100 MG BID PRN 11/06 0915 AC PO Last 24 Hrs of Lab/Lokesh Results Last 24 Hrs of Labs/Mics: Laboratory Tests 11/06/16 0645: Anion Gap 9, Estimated GFR > 60, BUN/Creatinine Ratio 17.5, PT 12.5, INR 1.19 H , CBC w Diff NO MAN DIFF REQ, RBC 3.93 L, MCV 100.6 H, MCH 34.4 H, RDW 13.7, MPV 7.2 L, Gran % 59.5, Lymphocytes % 31.3, Monocytes % 8.2, Eosinophils % 0.6, Basophils % 0.4, Absolute Granulocytes 3.0, Absolute Lymphocytes 1.6, Absolute Monocytes 0.4, Absolute Eosinophils 0, Absolute Basophils 0, PUBS MCHC 34.1 11/05/16 1200: Urine Color STRAW, Urine Clarity CLEAR, Urine pH 6.0, Ur Specific [place] 1.010, Urine Protein NEG, Urine Ketones NEG, Urine Nitrite NEG, Urine Bilirubin NEG, Urine Urobilinogen 0.2, Ur Leukocyte Esterase NEG, Ur Microscopic EXAM NOT REQUIRED, Urine Hemoglobin NEG, Urine Glucose NEG Microbiology 11/05 1199 URINE ROUT: Urine Culture - RES 11/05 1199 BLOOD: Blood Culture - RECD 11/05 1199 BLOOD: Blood Culture - RECD Assessment/Plan Assessment: This is a 85-year-old male with past medical history significant for atrial fibrillation on warfarin 5 mg, status post permanent pacemaker placement, insomnia, overactive bladder, hypertension, hypothyroidism presented to [facility] emergency department with chief complaint of fever, dry cough, congestion, shortness of breath on exertion, wheezing for 10 days. Of note patient has been to her primary care doctor On October 10 for fever, cough and chest x-ray was done which showed right sided plural effusion and he was sent home on oral antibiotics-5 days of oral azithromycin. However patient still has ongoing dry cough not associated with any sputum production and lung congestion for 10 days. No relief with antibiotics and cough suppressants. Also complains shortness of breath on exertion associated with wheezing. No orthopnea and paroxysmal nocturnal dyspnea. No chest pain, racing of heart, hemoptysis. He denies any smoking. Vitals on Admission-febrile 102.4, tachycardic 120, respiratory rate 24, blood pressure 120/57, saturating at 93% on 2 L. Pertinent labs on admission-WBC 6.2, H&H normal. BEP normal. INR 1.81. First set of troponins were negative. ProBNP 1070. CXR Small right pleural effusion with increased hazy basilar opacities, right greater than left. This appearance could represent atelectasis or pneumonia. chestCT 1. Tree-in-bud opacities within the right upper lobe suggesting small airways disease. 2. Small to moderate right pleural effusion resulting in compressive atelectasis of the right lower lobe. EKG-paced rhythm, PACs, PVCs, 86 bpm. Problem list 1. Community-acquired pneumonia 2. Acute hypoxic respiratory failure 3. Possible parapneumonic effusion vs transudative effusion 4. Hypothyroidism 5. Hypertension 6. Overactive bladder 7. Atrial fibrillation 8. Insomnia 9. hematuria Community-acquired pneumonia Patient presented with fever 102, dry cough, congested lungs, shortness of breath on exertion, wheezing. Of note he failed outpatient treatment for pneumonia 2 weeks ago. He is not on home oxygen. Denies smoking. Normal leukocyte count. Chest x-ray showed small right-sided pleural effusion with increased hazy basilar opacities atelectasis versus pneumonia. CAT scan chest showed right-sided pleural effusion with compressive atelectasis of right lower lobe. -Admitted to telemetry floor for further monitoring -Monitor vitals every shift -Maintain oxygen saturations above 92% -provide supplemental oxygen -Monitor closely for fever, leukocytosis, worsening shortness of breath. -IV antibiotics ceftriaxone -discontinued -Follow-up blood culture, sputum culture-negative so far -Follow-up urine pneumococcal and streptococcal antigen- negative. -Total respiratory care Acute hypoxic respiratory failure Patient presented with shortness of breath on exertion. Of note patient is not on oxygen at home. He desaturated to 84-86% on room air requiring supplemental oxygen. Currently saturating at 94% on 4 L. Respiratory rate greater than 20 on admission. -Continue supplemental oxygen -Maintain saturations above 90% -Total respiratory care Possible parapneumonic effusion vs transudative effusion Patient was treated for community-acquired pneumonia couple of weeks ago. However he failed outpatient treatment for pneumonia. Still complains of cough, congestion, shortness of breath on exertion. High-grade fever 102.. Chest x-ray and CAT scan suggestive of right-sided pleural effusion -Possible parapneumonic effusion -Empyema is less likely, no WBC count elevation. -Diagnostic and therapeutic thoracocentesis-fluid Suggestive of transudate effusion. With PH 7.35, total protein fluid/serum less than 0.5, LDH fluid/ serum less than 0.6. -Cardiology was consulted- regarding transudate effusion. Patient was started on Lasix 40 mg daily -Echocardiogram in July 2016 showed mild to moderate aortic stenosis. Hematuria During his hospitalization he developed gross hematuria and dysuria. He has no history of urinary tract infections, prostatitis, or prostate cancer. He had been placed with a Butler catheter yesterday 11/05/16, however upon standing, it fell out and the patient denied pulling it out. Ofnote, He is on warfarin for his atrial fibrillation history and he does have a pacemaker in place. * His urine culture was negative and his renal/bladder ultrasound was normal. * There was difficulty in placing a catheter again. * Patient is going to OR this afternoon for possible cystoscopy * nothing by mouth * IV fluids normal saline 1 bag for now. * sTarted on Flomax 0.4 mg daily at bedtime. * Discontinue oxybutynin as per urologist. * Warfarin on hold for now. * Morphine whenever necessary for pain Hypothyroidism Continue home dose of levothyroxine 50 g daily Hypertension Continue home dose of 40 mg lisinopril daily Overactive bladder On oxybutynin- discontinued in the hospital Atrial fibrillation Status post pacemaker placement Warfarin 5 mg daily at home Warfarin on hold because of hematuria Insomnia Takes zolfresh 10 mg daily at home Problem List: 1. Community acquired pneumonia 2. Atrial fibrillation 3. Hypoxia Pain Ratin Pain Location: none Pain Goal: Remain pain free Pain Plan: tylinol Tomorrow's Labs & Rationales: cbc in the setting of hematuria inr in the setting of hematuria and warfarin on hold Consulting Request: Consulting Specialty: Cardiology HELENA MIGUEL,MELITON 11/06/16 1404: Attending MD Review Statement Attending Statement Attending MD Statement: examined this patient, discuss w/resident/PA/THERMOSCREW OPERATOR, agreed w/resident/PA/THERMOSCREW OPERATOR, reviewed EMR data (avail), discussed with nursing, discussed with case mgmt Attending Assessment/Plan: Events over the weekend noted. Patient had diagnostic/ therapeutic thoracentesis done on Sunday and the fluid is transudative. Initially antibiotics were stopped but patient spiked and started having hematuria so he is now on ceftriaxone for presumed UTI. He is having hematuria, CBI with three- way Butler has been inserted and Dr. Bolanos is going to take him to the OR later today for a cystoscopy. We need this clarified before we start him on Coumadin for his A. fib. He also has moderate
--- NOTE | 2016-11-06 09:35 | PN- Cardiology ---
Subjective Subjective: The patient is still having some shortness of breath and hematuria. He is being seen by urology at this time and a Butler catheter is being inserted. He remains on oral Lasix Objective Vital Signs and I&Os Vital Signs Date Time Temp Pulse Resp B/P Pulse O2 O2 Flow FiO2 Ox Delivery Rate 11/06 831 98.6 63 12 112/58 94 Nasal Cannula 11/06 0721 Nasal 4.0L Cannula 11/06 0000 Nasal 2.0L Cannula 11/05 2348 99.9 58 20 124/60 94 Nasal Cannula 11/05 2202 95 Nasal 4.0L Cannula 11/05 1600 Nasal 4.0L Cannula 11/05 1600 98.2 63 20 120/60 95 Nasal 4.0L Cannula 11/05 1233 98.4 11/05 1035 95 Nasal 3.5L Cannula Intake & Output 11/06 1600 11/06 0800 11/06 0000 11/05 1600 11/05 0800 11/05 0000 Intake Total 240 200 100 720 50 120 Output Total 100 337 525 3489 Balance 140 -100 -400 720 50 -2030 Intake, Oral 240 200 100 720 50 120 Number 0 Bowel Movements Output, Stool 0 Output, Urine 100 [phone] Current Medications: Current Medications Sig/Emily Start time Last Medication Dose Route Stop Time Status Admin Acetaminophen 650 MG Q8P PRN 11/02 1545 AC 11/02 PO 2249 Acetaminophen 650 MG Q8P PRN 11/02 1445 AC 11/06 PO 0828 Albuterol Sulfate 3 ML BID 11/02 2200 AC 11/05 INH 2203 Benzonatate 100 MG TID 11/02 1144 AC 11/05 PO 2213 Ceftriaxone Sodium 1,000 MG DAILY 11/05 1131 AC 11/05 IV 1233 Furosemide 40 MG DAILY 11/05 1000 AC 11/05 PO 0750 Guaifenesin 600 MG Q12 11/02 1140 AC 11/05 PO 2213 Levothyroxine Sodium 0.05 MG DAILY AC 11/03 0700 AC 11/06 PO 0606 Lisinopril 40 MG DAILY 11/02 1245 AC 11/05 PO 0752 Melatonin 5 MG AT BEDTIME 11/04 2200 AC 11/05 PO 2214 Morphine Sulfate 1 MG Q8P PRN 11/02 1545 AC 11/06 IV 0246 Oxybutynin Chloride 5 MG BID 11/02 2200 AC 11/05 PO 2213 Phenazopyridine HCl 100 MG BID PRN 11/06 0915 AC PO Results Last 48 Hrs of Labs/Mics: Laboratory Tests 11/06/16 0645: Anion Gap 9, Estimated GFR > 60, BUN/Creatinine Ratio 17.5, PT 12.5, INR 1.19 H , CBC w Diff NO MAN DIFF REQ, RBC 3.93 L, MCV 100.6 H, MCH 34.4 H, RDW 13.7, MPV 7.2 L, Gran % 59.5, Lymphocytes % 31.3, Monocytes % 8.2, Eosinophils % 0.6, Basophils % 0.4, Absolute Granulocytes 3.0, Absolute Lymphocytes 1.6, Absolute Monocytes 0.4, Absolute Eosinophils 0, Absolute Basophils 0, PUBS MCHC 34.1 11/05/16 1200: Urine Color STRAW, Urine Clarity CLEAR, Urine pH 6.0, Ur Specific [place] 1.010, Urine Protein NEG, Urine Ketones NEG, Urine Nitrite NEG, Urine Bilirubin NEG, Urine Urobilinogen 0.2, Ur Leukocyte Esterase NEG, Ur Microscopic EXAM NOT REQUIRED, Urine Hemoglobin NEG, Urine Glucose NEG 11/05/16 0650: PT 13.7 H, INR 1.31 H, CBC w Diff NO MAN DIFF REQ, RBC 4.13 L, MCV 101.6 H, MCH 33.9 H, RDW 13.9, MPV 7.1 L, Gran % 52.0, Lymphocytes % 35.7, Monocytes % 11.6 H, Eosinophils % 0.3, Basophils % 0.4, Absolute Granulocytes 2.6, Absolute Lymphocytes 1.8, Absolute Monocytes 0.6, Absolute Eosinophils 0, Absolute Basophils 0, PUBS MCHC 33.3 11/04/16 1645: Urine Color YEL, Urine Clarity CLEAR, Urine pH 6.0, Ur Specific [place] 1.020, Urine Protein NEG, Urine Ketones NEG, Urine Nitrite NEG, Urine Bilirubin NEG, Urine Urobilinogen 0.2, Ur Leukocyte Esterase NEG, Ur Microscopic SEDIMENT EXAMINED, Urine RBC 25-50 H, Urine WBC RARE, Ur Epithelial Cells RARE, Urine Hemoglobin MOD H, Urine Glucose NEG Assessment/Plan Assessment/Plan The patient still is having shortness of breath and has abnormal lung sounds. He has been started on a diuretic. He is having some hematuria and painful urination, although his INR is not in the therapeutic range. A urology consultation is in progress. I recommend continuing his Lasix at 40 mg daily. I recommend holding his warfarin because of the hematuria. We will await urology opinion on his hematuria and suitability for restarting warfarin. Pulmonology has recommended a follow-up echocardiogram although he just had one a couple of months ago. The patient does not need telemetry monitoring at this point. Continue telemetry? No
--- NOTE | 2016-11-06 10:13 | Cons- Urology ---
General Information and HPI Consulting Request Date of Consult: 11/06/16 Requested By: PAULINA SIMON MD Reason for Consult: gross hematuria and dysuria Source of Information: patient Exam Limitations: no limitations History of Present Illness: 85-year-old male with a history of coughing and difficulty breathing. He has had a paracentesis of his pleural fluid and and during his hospitalization he developed gross hematuria and dysuria. He has no history of urinary tract infections, prostatitis, or prostate cancer. He has had no reason to see an urologist in the past. He had been placed with a Cruz catheter yesterday however upon standing it fell out and the patient denied pulling it out. He does admit to having difficulty with passing a bowel movement recently. Otherwise denies any urinary issues such as difficulty urinating. He is on warfarin for his atrial fibrillation history and he does have a pacemaker in place. Allergies/Medications Allergies: Coded Allergies: amoxicillin (From Augmentin) (Severe, ANAPHYLAXIS 11/02/16) clavulanic acid (From Augmentin) (Severe, ANAPHYLAXIS 11/02/16) Penicillins (RASH 11/02/16) Home Med List: Cholecalciferol (Vitamin D3) (Vitamin D3) 1,000 UNIT CAPSULE 1,000 IU PO DAILY SUPPLEMENT (Reported) Levothyroxine Sodium 50 MCG TABLET 50 MCG PO DAILY THYROID (Reported) Lisinopril 40 MG TABLET 40 MG PO DAILY HTN (Reported) Tolterodine Tartrate (Detrol LA) 4 MG CAP.ER.24H 4 MG PO DAILY OVERACTIVE BLADDER (Reported) Warfarin Sodium 5 MG TABLET 5 MG PO DAILY "MY HEART" (Reported) Zolpidem Tartrate 10 MG TABLET 10 MG PO DAILY SLEEP (Reported) Current Medications: Current Medications Sig/Emily Start time Last Medication Dose Route Stop Time Status Admin Acetaminophen 650 MG Q8P PRN 11/02 1545 AC 11/02 PO 2249 Acetaminophen 650 MG Q8P PRN 11/02 1445 AC 11/06 PO 0828 Albuterol Sulfate 3 ML BID 11/02 2200 AC 11/05 INH 2203 Benzonatate 100 MG TID 11/02 1144 AC 11/06 PO 1001 Ceftriaxone Sodium 1,000 MG DAILY 11/05 1131 AC 11/06 IV 1001 Furosemide 40 MG DAILY 11/05 1000 AC 11/06 PO 1002 Guaifenesin 600 MG Q12 11/02 1140 AC 11/06 PO 1002 Levothyroxine Sodium 0.05 MG DAILY AC 11/03 0700 AC 11/06 PO 0606 Lisinopril 40 MG DAILY 11/02 1245 AC 11/06 PO 1002 Melatonin 5 MG AT BEDTIME 11/04 2200 AC 11/05 PO 2214 Morphine Sulfate 1 MG Q8P PRN 11/02 1545 AC 11/06 IV 0246 Oxybutynin Chloride 5 MG BID 11/02 220 AC 11/06 PO 1002 Phenazopyridine HCl 100 MG BID PRN 11/06 0915 AC PO Past History Medical History Blood Transfusion Hx: No Neurological: NONE EENT: NONE Cardiovascular: AFIB, hypertension, PPM Respiratory: PLEURAL EFFUSION Gastrointestinal: NONE Hepatic: NONE Renal: NONE Musculoskeletal: NONE Psychiatric: NONE Endocrine: NONE Blood Disorders: NONE Cancer(s): NONE LABORATORY INSPECTOR/Reproductive: NONE Surgical History Pertinent Surgical History: cataract removal, PPM PACEMAKER Family History Relations & Conditions If Any: MOTHER *No pertinent family history Relation not specified for: FH: hypertension Psychosocial History Where Do You Live? Home Who Do You Live With? child Services at Home: None Primary Language: Spanish Smoking Status: Former Smoker ETOH Use: occasional use Illicit Drug Use: denies illicit drug use Power of Tool Chaser/HCP? yes Name of POA/HCP: SON Functional Ability ADLs Independent: dressing, eating, toileting, bathing. Ambulation: independent IADLs Independent: shopping, housework, finances, food prep, telephone, transportation , medication admin. Review of Systems Review of Systems Constitutional: Reports: see HPI. EENTM: Denies: no symptoms. Cardiovascular: Denies: no symptoms. Respiratory: Denies: see HPI. GI: Reports: see HPI. Genitourinary: Reports: see HPI. Musculoskeletal: Denies: no symptoms. Skin: Denies: no symptoms. Neurological/Psychological: Denies: no symptoms. Hematologic/Endocrine: Denies: no symptoms. Immunologic/Allergic: Denies: no symptoms. Exam & Diagnostic Data Vital Signs and I&O Vital Signs Date Time Temp Pulse Resp B/P Pulse O2 O2 Flow FiO2 Ox Delivery Rate 11/06 0732 98.6 63 12 112/58 94 Nasal Cannula 11/06 0721 Nasal 4.0L Cannula 11/06 0000 Nasal 2.0L Cannula 11/05 2348 99.9 58 20 124/60 94 Nasal Cannula 11/05 2202 95 Nasal 4.0L Cannula 11/05 1600 Nasal 4.0L Cannula 11/05 1600 98.2 63 20 120/60 95 Nasal 4.0L Cannula 11/05 1233 98.4 11/05 1035 95 Nasal 3.5L Cannula Intake & Output 11/06 1600 11/06 0800 11/06 0000 11/05 1600 11/05 0800 11/05 0000 Intake Total 240 200 100 720 50 120 Output Total 100 829 471 6964 Balance 140 -100 -400 720 50 -2030 Intake, Oral 240 200 100 720 50 120 Number 0 Bowel Movements Output, Stool 0 Output, Urine 100 358 478 2763 Physical Exam: awake and alert, NDA lying in bed. Abd Mildly tender suprapubic area No cruz in place. Foreskin retracted. Bilateral descended testes with no masses or lesion. Rectal deferred. No C/C/E Physical Exam General Appearance: well developed/nourished, no apparent distress, alert, awake , comfortable Head: atraumatic, normal appearance Eyes: Bilateral: normal appearance. Ears, Nose, Throat: normal ENT inspection Neck: normal inspection Respiratory: no respiratory distress Gastrointestinal: soft, tenderness Rectal: deferred Back: normal inspection Extremities: normal inspection Neurologic/Psych: awake, alert, oriented x 3 Cranial Nerves: normal hearing, normal speech Skin: intact, normal color, warm/dry Reproductive: Normal male genitalia Last 24 Hours of Labs: Laboratory Tests 11/06 11/05 0645 1200 Chemistry Sodium (137 - 145 mmol/L) 133 L Potassium (3.5 - 5.1 mmol/L) 3.7 Chloride (98 - 107 mmol/L) 80 L Carbon Dioxide (22 - 30 mmol/L) 44 H Anion Gap (5 - 16) 9 BUN (9 - 20 mg/dL) 14 Creatinine (0.7 - 1.2 mg/dL) 0.8 Estimated GFR (>60 ml/min) > 60 BUN/Creatinine Ratio (7 - 25 %) 17.5 Coagulation PT (9.4 - 12.5 SEC) 12.5 INR (0.90 - 1.17) 1.19 H Hematology CBC w Diff NO MAN DIFF REQ WBC (4.8 - 10.8 /CUMM) 5.1 RBC (4.70 - 6.10 /CUMM) 3.93 L Hgb (14.0 - 18.0 G/DL) 13.5 L Hct (42 - 52 %) 39.5 L MCV (80.0 - 94.0 FL) 100.6 H MCH (27.0 - 31.0 PG) 34.4 H RDW (11.5 - 14.5 %) 13.7 Plt Count (130 - 400 /CUMM) 163 MPV (7.4 - 10.4 FL) 7.2 L Gran % (42.2 - 75.2 %) 59.5 Lymphocytes % (20.5 - 51.1 %) 31.3 Monocytes % (1.7 - 9.3 %) 8.2 Eosinophils % (0 - 5 %) 0.6 Basophils % (0.0 - 2.0 %) 0.4 Absolute Granulocytes (1.4 - 6.5 /CUMM) 3.0 Absolute Lymphocytes (1.2 - 3.4 /CUMM) 1.6 Absolute Monocytes (0.10 - 0.60 /CUMM) 0.4 Absolute Eosinophils (0.0 - 0.7 /CUMM) 0 Absolute Basophils (0.0 - 0.2 /CUMM) 0 PUBS MCHC (33.0 - 37.0 G/DL) 34.1 Urines Urine Color (YEL,AMB,STR) STRAW Urine Clarity (CLEAR) CLEAR Urine pH (5.0 - 8.0) 6.0 Ur Specific [place] (1.001 - 1.035) 1.010 Urine Protein (NEG,<30 MG/DL) NEG Urine Ketones (NEG) NEG Urine Nitrite (NEG) NEG Urine Bilirubin (NEG) NEG Urine Urobilinogen (0.1 - 1.0 EU/dl) 0.2 Ur Leukocyte Esterase (NEG) NEG Ur Microscopic EXAM NOT REQUIRED Urine Hemoglobin (NEG) NEG Urine Glucose (N MG/DL) NEG Imaging Results: renal US with no hydronephrosis or masses or abnormalities other than mildly enlarged prostate. no medial lobe commented on. Bilateral ureteral jets seen. Assessment/Plan Assessment/Plan 85-year-old male with pneumonia and gross hematuria and dysuria. His urine culture was negative and his renal/bladder ultrasound was normal. There was difficulty in placing a Coude catheter three-way. He is likely bleeding from his prostate due to warfarin. Consider cystoscopy and fulguration in the OR today. Keep him nothing by mouth with IV fluids and discontinue oxybutynin. Recommend Starting Flomax 0.4 mg daily at bedtime. patient aware of the plan and is agreeable. Consult Acknowledgment - Thank you for your consult request.
--- NOTE | 2016-11-06 10:35 | NUR ---
AT 0900: md velez from urology insert cruz cath.
[2016-11-06 14:02] VITALS: BP 118/70
--- NOTE | 2016-11-06 18:48 | Operative Report ---
Operative/Inv Procedure Report Surgery Date: 11/06/16 Name of Procedure: cystoscopy, fulguration of prostate and bladder trigone and bladder neck Pre-Operative Diagnosis: gross hematuria Post-Operative Diagnosis: same Estimated Blood Loss: less than 50ml Surgeon/Child & Adolescent Psychiatrist: Domenica Bolanos Anesthesia: laryngeal mask airway Drains: 22fr [address] way coude Complications: none Condition: stable Operative Indication: gross hematuria Operative/Procedure Note Note: Operative dictation on patient Dilip Jose for gross hematuria. Was consented for cystoscopy and possible creation of prostate or bladder abnormalities. All questions were answered. The patient was identified in the holding area and taken to the operating placed on the operating table in supine position. Once timeout was performed and IV antibiotics and elevation. The patient was placed in the dorsal lithotomy position. His prepped and draped in the standard sterile fashion. Cystoscopy was performed bladder was globally inspected but it was very difficult to visualize the bladder due to clot formation. The clots were evacuated and the cystoscope was removed and the resectoscope was placed and the bleeding was seen to be coming from the bladder trigone as well as the bladder neck and prostate. These areas before fulgurated and taking care not to injure the ureteral orifices which were easily identified. Once this was performed there was no active bleeding noted there were no clots within the bladder. The resectoscope was removed and a 22 Turkish three-way coud catheter was placed without difficulty. 30 mL of sterile water was placed into the balloon port. Patient tolerated the procedure well. Findings: bleeding from prostatic fossa and bladder trigone and bladder neck. Enlarged prostate with no median lobe but lateral kissing lobes. No bladder lesions or tumors. Discharge Disposition: PACU
--- NOTE | 2016-11-07 00:38 | NUR ---
PT CAME BACK FROM [facility] AT ABOUT 1999 ON 11/06/15. PT IS A/O. PT IS PAIN FREE. VSS. 130/82,85,16,98% ON 3L NC, 98.2. PT HAS CBI RUNNNG. LIGHT RED OUTPUT. PT BACK IN BED LAYING COMFORTABLY.
--- NOTE | 2016-11-07 07:20 | PN- Housestaff ---
ERVIN HONEYCUTT 11/07/16 0720: Subjective Follow-up For: 1. Community-acquired pneumonia 2. Acute hypoxic respiratory failure 3. Possible parapneumonic effusion vs transudative effusion 4. Hematuria and painful urination s/p cystoscopy Complaints: pain scale (0-10) Tele-Events Since Last Visit: discontinued telemetry monitoring Subjective: Patient was seen and examined this morning. He is alert awake and oriented to time place and person. No acute events monitored overnight. He remained afebrile. He does report shortness of breath on exertion, dry cough , congestion of lungs. Complains of urethral pain this morning, 10 out of 10, spasmodic, nonradiating. Not relieving with morphine and dilaudid. He was given opioid and belladonna suppository after which his pain came down and he slept for some time. No gross hematuria this morning. Urine was clear. Continuous bladder irrigation was stopped Denied any chest pain or pressure, racing of heart, headache, dizziness or lightheadedness. No change in bowel habits. Vitals remained afebrile. Heart rate 85, respiratory rate 22, blood pressure 134/68, saturating at 94% on 3L oxygen discontinued telemetry monitoring. Review of Systems Constitutional: Denies: see HPI. Objective Last 24 Hrs of Vital Signs/I&O Vital Signs Date Time Temp Pulse Resp B/P Pulse O2 O2 Flow FiO2 Ox Delivery Rate 11/07 1007 80 110/60 11/07 0852 91 Nasal 3.0L Cannula 11/07 799 94 Nasal 3.0L Cannula 11/07 799 97.8 78 18 128/82 95 Nasal 3.0L Cannula 11/07 0000 94 Nasal 3.0L Cannula 11/06 2046 85 130/82 11/06 2018 93 Nasal 3.0L Cannula 11/06 1600 95 Nasal 4.0L Cannula 11/06 1402 97.9 78 18 118/70 92 Nasal 4.0L Cannula Intake & Output 11/07 1600 11/07 0811/07 0000 Intake Total 800 400 Output Total 400 750 Balance 400 -350 Intake, IV 600 200 Intake, Oral 200 200 Output, Urine 400 750 Patient 95.254 kg Weight Physical Exam General Appearance: Alert, Oriented X3, Cooperative, No Acute Distress Skin: No Rashes, No Breakdown, No Significant Lesion HEENT: Atraumatic, Mucous Membr. moist/pink Neck: Supple, No JVD Lymphatic: Cervical nl Cardiovascular: Normal S1, Normal S2 Lungs: Normal Air Movement Abdomen: Normal Bowel Sounds, Soft, No Tenderness Extremities: No Clubbing, No Cyanosis, No Edema Vascular: Normal Pulses Current Medications: Current Medications Sig/Emily Start time Last Medication Dose Route Stop Time Status Admin Acetaminophen 650 MG Q8P PRN 11/02 1545 AC 11/02 PO 2249 Acetaminophen 650 MG Q8P PRN 11/02 1445 AC 11/06 PO 0828 Acetazolamide 250 MG ONCE ONE 11/07 0815 DC 11/07 Sodium Chloride 50 ML IV 11/07 0944 1007 Albuterol Sulfate 3 ML BID 11/02 2200 AC 11/07 INH 0851 Benzonatate 100 MG TID 11/02 1144 AC 11/07 PO 1007 Ceftriaxone Sodium 1,000 MG DAILY 11/05 1131 DC 11/06 IV 1001 Fentanyl Citrate 250 MCG .STK-MED ONE 11/06 1724 DC IM 11/06 1725 Furosemide 40 MG DAILY 11/05 1000 AC 11/06 PO 1002 Guaifenesin 600 MG Q12 11/02 1140 AC 11/07 PO 1007 Hydromorphone HCl 0.4 MG Q4P PRN 11/06 2245 DC 11/07 IV 0328 Hydromorphone HCl 0.6 MG ONCE ONE 11/06 1630 DC 11/06 IV 11/06 1631 1648 Levothyroxine Sodium 0.05 MG DAILY AC 11/03 0700 AC 11/07 PO 0549 Lidocaine 1 ENEDINA TID PRN 11/06 1515 AC TOP Lisinopril 40 MG DAILY 11/02 1245 AC 11/07 PO 1007 Melatonin 5 MG AT BEDTIME 11/04 2200 AC 11/06 PO 2046 Midazolam HCl 2 MG .STK-MED ONE 11/06 1724 DC IM 11/06 1725 Morphine Sulfate 1 MG ONCE ONE 11/06 1630 CAN IV 11/06 1631 Morphine Sulfate 1 MG Q8P PRN 11/02 1545 DC 11/06 IV 1446 Opium Alkaloids 60 MG ONCE ONE 11/07 0745 DC 11/07 NH 11/07 0746 0752 Phenazopyridine HCl 100 MG BID PRN 11/06 0915 AC 11/07 PO 0139 Sodium Chloride 1,000 ML Q13H 11/06 1030 DC 11/06 IV 11/06 6174 1115 Tamsulosin HCl 0.4 MG AT BEDTIME 11/06 2200 AC 11/06 PO 6 Last 24 Hrs of Lab/Lokesh Results Last 24 Hrs of Labs/Mics: Laboratory Tests 11/07/16 0750: Anion Gap 9, Estimated GFR > 60, BUN/Creatinine Ratio 22.9, PT 12.7 H, INR 1.21 H, D-Dimer 554 H, CBC w Diff NO MAN DIFF REQ, RBC 3.83 L, MCV 99.7 H, MCH 33.7 H, RDW 12.7, MPV 7.8, Gran % 73.5, Lymphocytes % 17.8 L, Monocytes % 7.9, Eosinophils % 0.5, Basophils % 0.3, Absolute Granulocytes 5.5, Absolute Lymphocytes 1.3, Absolute Monocytes 0.6, Absolute Eosinophils 0, Absolute Basophils 0, PUBS MCHC 33.8 Assessment/Plan Assessment: This is a 85-year-old male with past medical history significant for atrial fibrillation on warfarin 5 mg, status post permanent pacemaker placement, insomnia, overactive bladder, hypertension, hypothyroidism presented to [facility] emergency department with chief complaint of fever, dry cough, congestion, shortness of breath on exertion, wheezing for 10 days. Of note patient has been to her primary care doctor On October 10 for fever, cough and chest x-ray was done which showed right sided plural effusion and he was sent home on oral antibiotics-5 days of oral azithromycin. However patient still has ongoing dry cough not associated with any sputum production and lung congestion for 10 days. No relief with antibiotics and cough suppressants. Also complains shortness of breath on exertion associated with wheezing. No orthopnea and paroxysmal nocturnal dyspnea. No chest pain, racing of heart, hemoptysis. He denies any smoking. Vitals on Admission-febrile 102.4, tachycardic 120, respiratory rate 24, blood pressure 120/57, saturating at 93% on 2 L. Pertinent labs on admission-WBC 6.2, H&H normal. BEP normal. INR 1.81. First set of troponins were negative. ProBNP 1070. CXR Small right pleural effusion with increased hazy basilar opacities, right greater than left. This appearance could represent atelectasis or pneumonia. chestCT 1. Tree-in-bud opacities within the right upper lobe suggesting small airways disease. 2. Small to moderate right pleural effusion resulting in compressive atelectasis of the right lower lobe. EKG-paced rhythm, PACs, PVCs, 86 bpm. Problem list 1. Community-acquired pneumonia 2. Acute hypoxic respiratory failure 3. Possible parapneumonic effusion vs transudative effusion 4. Hypothyroidism 5. Hypertension 6. Overactive bladder 7. Atrial fibrillation 8. Insomnia 9. hematuria Community-acquired pneumonia Patient presented with fever 102, dry cough, congested lungs, shortness of breath on exertion, wheezing. Of note he failed outpatient treatment for pneumonia 2 weeks ago. He is not on home oxygen. Denies smoking. Normal leukocyte count. Chest x-ray showed small right-sided pleural effusion with increased hazy basilar opacities atelectasis versus pneumonia. CAT scan chest showed right-sided pleural effusion with compressive atelectasis of right lower lobe. -Admitted to telemetry floor for further monitoring -Monitor vitals every shift -Maintain oxygen saturations above 92% -provide supplemental oxygen -Monitor closely for fever, leukocytosis, worsening shortness of breath. -IV antibiotics ceftriaxone -discontinued -Follow-up blood culture, sputum culture-negative so far -Follow-up urine pneumococcal and streptococcal antigen- negative. -Total respiratory care Acute hypoxic respiratory failure Patient presented with shortness of breath on exertion. Of note patient is not on oxygen at home. He desaturated to 84-86% on room air requiring supplemental oxygen. Currently saturating at 94% on 4 L. Respiratory rate greater than 20 on admission. -Continue supplemental oxygen -Maintain saturations above 90% -Total respiratory care Possible parapneumonic effusion vs transudative effusion Patient was treated for community-acquired pneumonia couple of weeks ago. However he failed outpatient treatment for pneumonia. Still complains of cough, congestion, shortness of breath on exertion. High-grade fever 102.. Chest x-ray and CAT scan suggestive of right-sided pleural effusion -Possible parapneumonic effusion -Empyema is less likely, no WBC count elevation. -Diagnostic and therapeutic thoracocentesis-fluid Suggestive of transudate effusion. With PH 7.35, total protein fluid/serum less than 0.5, LDH fluid/ serum less than 0.6. -Cardiology was consulted- regarding transudate effusion. Patient was started on Lasix 40 mg daily. * Lasix dose was on hold this morning. -Echocardiogram in July 2016 showed mild to moderate aortic stenosis. Hematuria During his hospitalization he developed gross hematuria and dysuria. He has no history of urinary tract infections, prostatitis, or prostate cancer. He had been placed with a Butler catheter yesterday 11/05/16, however upon standing, it fell out and the patient denied pulling it out. Ofnote, He is on warfarin for his atrial fibrillation history and he does have a pacemaker in place. * His urine culture was negative and his renal/bladder ultrasound was normal. * There was difficulty in placing a catheter again. * Patient been to OR on 11/06/2016 for cystoscopy, fulguration of prostate and bladder trigone and bladder neck for gross hematuria. * sTarted on Flomax 0.4 mg daily at bedtime. * Discontinued oxybutynin. * Warfarin on hold for now. * Morphine and dilaudid whenever necessary for pain Findings on cystoscopy: bleeding from prostatic fossa and bladder trigone and bladder neck. Enlarged prostate with no median lobe but lateral kissing lobes. No bladder lesions or tumors. Hypothyroidism Continue home dose of levothyroxine 50 g daily Hypertension Continue home dose of 40 mg lisinopril daily Overactive bladder On oxybutynin- discontinued in the hospital Atrial fibrillation Status post pacemaker placement Warfarin 5 mg daily at home Warfarin on hold because of hematuria Insomnia Takes zolfresh 10 mg daily at home Diamox 250 mg IV 1 dose with markedly abnormal bicarbonate. Problem List: 1. Atrial fibrillation 2. Community acquired pneumonia 3. Hematuria 4. Hypoxia Pain Ratin Pain Location: urethral pain Pain Goal: Remain pain free Pain Plan: tylinol dilaudid Tomorrow's Labs & Rationales: CBC in the setting of hematuria BEP in the setting of hyponatremia and electrolyte disturbance INR in the setting of subtherapeutic range-warfarin on hold Consulting Request: Consulting Specialty: Cardiology HELENA MIGUEL,MELITON 11/07/16 0946: Attending MD Review Statement Attending Statement Attending MD Statement: examined this patient, discuss w/resident/PA/HEALTHCARE OR MEDICAL, agreed w/resident/PA/HEALTHCARE OR MEDICAL, discussed with family, reviewed EMR data (avail), discussed with nursing Attending Assessment/Plan: Patient remains in excruciating pain in his urethral region. He had a cystoscopy done yesterday. I spoke to Dr. Bolanos who said that he was bleeding from his prostate area but it was very minor, there was no tumor no mass. She is explained that with the CBI is clear we can stop it and later take out the Butler catheter. He is an 85-year-old male with A. fib on Coumadin who initially came in with a complaint of cough and congestion. He was noted to have an effusion that was tapped and it was a transudative effusion. He has aortic stenosis and the thought was maybe he has mild congestive heart failure giving him the transudative effusion. His Lasix dose was increased but his bicarbonate janice and he got a contraction alkalosis. Over the hospital course he developed hematuria on Sunday, got a Butler catheter in on Sunday that came out questionable causing trauma and worsened the hematuria.
[2016-11-07 08:00] VITALS: BP 128/82
--- NOTE | 2016-11-07 08:12 | PN- Pulmonary ---
Subjective HPI/Critical Care Issues: Patient continues to have discomfort related to Butler catheter. He reports his shortness of breath is improved though still remains oxygen dependent. D-dimer is pending Objective Current Medications: Current Medications Sig/Emily Start time Last Medication Dose Route Stop Time Status Admin Acetaminophen 650 MG Q8P PRN 11/02 1545 AC 11/02 PO 2249 Acetaminophen 650 MG Q8P PRN 11/02 1445 AC 11/06 PO 0828 Albuterol Sulfate 3 ML BID 11/02 2200 AC 11/06 INH 2012 Benzonatate 100 MG TID 11/02 1144 AC 11/06 PO 2047 Ceftriaxone Sodium 1,000 MG DAILY 11/05 1131 DC 11/06 IV 1001 Fentanyl Citrate 250 MCG .STK-MED ONE 11/06 1724 DC IM 11/06 1725 Furosemide 40 MG DAILY 11/05 1000 AC 11/06 PO 1002 Guaifenesin 600 MG Q12 11/02 1140 AC 11/06 PO 2047 Hydromorphone HCl 0.4 MG Q4P PRN 11/06 2245 DC 11/07 IV 0328 Hydromorphone HCl 0.6 MG ONCE ONE 11/06 1630 DC 11/06 IV 11/06 1631 1648 Levothyroxine Sodium 0.05 MG DAILY AC 11/03 0700 AC 11/07 PO 0549 Lidocaine 1 ENEDINA TID PRN 11/06 1515 AC TOP Lisinopril 40 MG DAILY 11/02 1245 AC 11/06 PO 1002 Melatonin 5 MG AT BEDTIME 11/04 2200 AC 11/06 PO 2046 Midazolam HCl 2 MG .STK-MED ONE 11/06 1724 DC IM 11/06 1725 Morphine Sulfate 1 MG ONCE ONE 11/06 1630 CAN IV 11/06 1631 Morphine Sulfate 1 MG Q8P PRN 11/02 1545 DC 11/06 IV 1446 Opium Alkaloids 60 MG ONCE ONE 11/07 0745 DC 11/07 LA 11/07 0746 0752 Oxybutynin Chloride 5 MG BID 11/02 220 DC 11/06 PO 1002 Phenazopyridine HCl 100 MG BID PRN 11/06 0915 AC 11/07 PO 0139 Sodium Chloride 1,000 ML Q13H 11/06 1030 DC 11/06 IV 11/06 2329 1115 Tamsulosin HCl 0.4 MG AT BEDTIME 11/06 2199 AC 11/06 PO 2045 Vital Signs & I&O Last 24 Hrs of Vitals and I&O: Vital Signs Date Time Temp Pulse Resp B/P Pulse O2 O2 Flow FiO2 Ox Delivery Rate 11/07 0000 94 Nasal 3.0L Cannula 11/06 2045 85 130/82 11/06 2017 93 Nasal 3.0L Cannula 11/06 1600 95 Nasal 4.0L Cannula 11/06 1402 97.9 78 18 118/70 92 Nasal 4.0L Cannula 11/06 1211 93 Nasal 2.0L Cannula 11/06 0832 98.6 63 12 112/58 94 Nasal Cannula Intake & Output 11/07 1600 11/07 0800 11/07 0000 Intake Total 800 400 Output Total 400 750 Balance 400 -350 Intake, IV 600 200 Intake, Oral 200 200 Output, Urine 400 750 Action saturation on 3 L is 93% exam of his chest shows diminished breath sounds at the bases there are no wheezes cardiac exam shows regular S1 and S2 without murmurs Impression/Plan Impression/Plan Impression/Plan: 85-year-old gentleman with transudative pleural effusion continues to have complaints of shortness of breath and continues to require low-flow oxygen. The etiology of his transudative effusion is uncertain and for that reason would recommend repeat cardiac ultrasound. He has developed a contraction metabolic alkalosis related to diuresis. Recommendations: Maintain potassium at approximately 4 and give Diamox 250 mg IV 1 dose with markedly abnormal bicarbonate. Follow-up d-dimer. Explanation for transudative effusion is unclear as there is no evidence of hepatic or renal disease and for that reason would consider repeat cardiac ultrasound. Patient needs to be mobilized out of bed with aggressive pulmonary toilet and incentive spirometry to help resolve residual atelectasis
[2016-11-07 08:26] LABS: ABSOLUTE BASOPHIL COUNT 0 /CUMM (0.0-0.2); ABSOLUTE EOSINOPHIL COUNT 0 /CUMM (0.0-0.7); ABSOLUTE GRANULOCYTE CT 5.5 /CUMM (1.4-6.5); ABSOLUTE LYMPH COUNT 1.3 /CUMM (1.2-3.4); ABSOLUTE MONOCYTE COUNT 0.6 /CUMM (0.10-0.60); BASOPHIL % 0.3 % (0.0-2.0); EOSINOPHIL % 0.5 % (0-5); GRANULOCYTE % 73.5 % (42.2-75.2); HEMATOCRIT 38.2 % (42-52); MEAN CORPUSCULAR HGB 33.7 PG (27.0-31.0); MEAN CORPUSCULAR HGB CONC 33.8 G/DL (33.0-37.0); MEAN CORPUSCULAR VOLUME 99.7 FL (80.0-94.0); MEAN PLATELET VOLUME 7.8 FL (7.4-10.4); PLATELET COUNT 181 /CUMM (130-400); RBC DISTRIBUTION WIDTH 12.7 % (11.5-14.5); RED BLOOD CELL CT 3.83 /CUMM (4.70-6.10); WHITE BLOOD CELL COUNT 7.4 /CUMM (4.8-10.8)
[2016-11-07 10:25] LABS: PT 12.7 SEC (9.4-12.5)
--- NOTE | 2016-11-07 10:50 | PN- Cardiology ---
Subjective Subjective: The patient had urology evaluation yesterday and had fulguration of prostate and bladder bleeding areas. He has a Butler catheter in place now. There is no evidence of hematuria at this time. Otherwise he states his breathing is a little better but he is in pain from the catheter. Telemetry has been discontinued as there were no significant rhythm issues. Objective Vital Signs and I&Os Vital Signs Date Time Temp Pulse Resp B/P Pulse O2 O2 Flow FiO2 Ox Delivery Rate 11/07 1007 80 110/60 11/07 851 91 Nasal 3.0L Cannula 11/07 799 94 Nasal 3.0L Cannula 11/07 799 97.8 78 18 128/82 95 Nasal 3.0L Cannula 11/07 94 Nasal 3.0L Cannula 11/06 2046 85 130/82 11/06 2017 93 Nasal 3.0L Cannula 11/06 1600 95 Nasal 4.0L Cannula 11/06 1402 97.9 78 18 118/70 92 Nasal 4.0L Cannula 11/06 1211 93 Nasal 2.0L Cannula Intake & Output 11/07 0000 11/06 1600 11/06 0700 11/06 0000 Intake Total 800 400 240 200 100 Output Total 207 534 4430 300 500 Balance 400 -350 -1660 -100 -400 Intake, IV 600 200 Intake, Oral 200 200 240 200 100 Number 0 Bowel Movements Output, Stool 0 Output, Urine 733 285 9342 300 500 Physical Exam: He is complaining of pain from the Butler catheter. HEENT exam is normal Chest reveals mild expiratory wheezing Heart reveals regular rhythm with systolic murmur at the base Extremities show no edema Current Medications: Current Medications Sig/Emily Start time Last Medication Dose Route Stop Time Status Admin Acetaminophen 650 MG Q8P PRN 11/02 1545 AC 11/02 PO 2249 Acetaminophen 650 MG Q8P PRN 11/02 1445 AC 11/06 PO 0828 Acetazolamide 250 MG ONCE ONE 11/07 914 DC 11/07 Sodium Chloride 50 ML IV 11/07 943 1007 Albuterol Sulfate 3 ML BID 11/02 2200 AC 11/07 INH 0851 Benzonatate 100 MG TID 11/02 1144 AC 11/07 PO 1007 Ceftriaxone Sodium 1,000 MG DAILY 11/05 1131 DC 11/06 IV 1001 Fentanyl Citrate 250 MCG .ST-MED ONE 11/06 1724 DC IM 11/06 1725 Furosemide 40 MG DAILY 11/05 1000 AC 11/06 PO 1002 Guaifenesin 600 MG Q12 11/02 1140 AC 11/07 PO 1007 Hydromorphone HCl 0.4 MG Q4P PRN 11/06 2245 DC 11/07 IV 0328 Hydromorphone HCl 0.6 MG ONCE ONE 11/06 1630 DC 11/06 IV 11/06 1631 1648 Levothyroxine Sodium 0.05 MG DAILY AC 11/03 0700 AC 11/07 PO 0549 Lidocaine 1 ENEDINA TID PRN 11/06 1515 AC TOP Lisinopril 40 MG DAILY 11/02 1245 AC 11/07 PO 1007 Melatonin 5 MG AT BEDTIME 11/04 2200 AC 11/06 PO 2046 Midazolam HCl 2 MG .STK-MED ONE 11/06 1724 DC IM 11/06 1725 Morphine Sulfate 1 MG ONCE ONE 11/06 1630 CAN IV 11/06 1631 Morphine Sulfate 1 MG Q8P PRN 11/02 1545 DC 11/06 IV 1446 Opium Alkaloids 60 MG ONCE ONE 11/07 0745 DC 11/07 OR 11/07 0746 0752 Phenazopyridine HCl 100 MG BID PRN 11/06 0915 AC 11/07 PO 0139 Sodium Chloride 1,000 ML Q13H 11/06 1030 DC 11/06 IV 11/06 2329 1115 Tamsulosin HCl 0.4 MG AT BEDTIME 11/06 2200 AC 11/06 PO 2046 Results Last 48 Hrs of Labs/Mics: Laboratory Tests 11/07/16 0750: Anion Gap 9, Estimated GFR > 60, BUN/Creatinine Ratio 22.9, PT 12.7 H, INR 1.21 H, D-Dimer 554 H, CBC w Diff NO MAN DIFF REQ, RBC 3.83 L, MCV 99.7 H, MCH 33.7 H, RDW 12.7, MPV 7.8, Gran % 73.5, Lymphocytes % 17.8 L, Monocytes % 7.9, Eosinophils % 0.5, Basophils % 0.3, Absolute Granulocytes 5.5, Absolute Lymphocytes 1.3, Absolute Monocytes 0.6, Absolute Eosinophils 0, Absolute Basophils 0, PUBS MCHC 33.8 11/06/16 0645: Anion Gap 9, Estimated GFR > 60, BUN/Creatinine Ratio 17.5, PT 12.5, INR 1.19 H , CBC w Diff NO MAN DIFF REQ, RBC 3.93 L, MCV 100.6 H, MCH 34.4 H, RDW 13.7, MPV 7.2 L, Gran % 59.5, Lymphocytes % 31.3, Monocytes % 8.2, Eosinophils % 0.6, Basophils % 0.4, Absolute Granulocytes 3.0, Absolute Lymphocytes 1.6, Absolute Monocytes 0.4, Absolute Eosinophils 0, Absolute Basophils 0, PUBS MCHC 34.1 11/05/16 1200: Urine Color STRAW, Urine Clarity CLEAR, Urine pH 6.0, Ur Specific [place] 1.010, Urine Protein NEG, Urine Ketones NEG, Urine Nitrite NEG, Urine Bilirubin NEG, Urine Urobilinogen 0.2, Ur Leukocyte Esterase NEG, Ur Microscopic EXAM NOT REQUIRED, Urine Hemoglobin NEG, Urine Glucose NEG Microbiology 11/05 1199 URINE ROUT: Urine Culture - COMP Assessment/Plan Assessment/Plan The patient's respiratory status seems improved. I would recommend continuing him on Lasix and follow pulmonary recommendations. His warfarin is still on hold. We should restart this when approved by urology. Continue telemetry? Not applicable
--- NOTE | 2016-11-07 12:59 | NUR ---
Physical Therapy. PT consult received and chart reviewed. PT evaluation deferred this AM 2/2 pt pain levels and D-dimer ordered. D-dimer found to be elevated, pt not anticoagulated at this time. Awaiting input from medical team prior to mobility. PT will f/u as appropriate.
--- NOTE | 2016-11-07 14:26 | NUR ---
NURSING NOTE; 3-WAY KOWALSKI IRRIGATED WITH 30 ML NS. FLUSHED EASILY AND ABLE TO GET RETURN 30 ML. NO CLOTS. URINE DARK IN COLOR. PT ON PYRIDIUM PO. BLADDER SCAN DONE SHOWING 32 ML. INSTRUCTED BY MD TO REMOVE KOWALSKI CATHETER. REMOVED WITHOUT ANY ISSUE. LIDOCAINE JELLY APPLIED TO TIP.
[2016-11-07 15:30] VITALS: BP 108/50
--- NOTE | 2016-11-07 15:34 | RADIOLOGY REPORT ---
EXAMINATION: XR PORTABLE CHEST CLINICAL INFORMATION: Assess right-sided pleural effusion COMPARISON: 11/05/2016 TECHNIQUE: Portable view of the chest was obtained. FINDINGS: Small right-sided pleural-based abnormality persists. Equivocal trace left-sided pleural effusion. Right-sided pacemaker remains stable and intact. No CHF or infiltrate seen. No ectopic air. Heart size remains enlarged. IMPRESSION: Persistent small right-sided pleural effusion. Equivocal trace left-sided pleural effusion. No CHF.
--- NOTE | 2016-11-07 18:20 | NUR ---
NURSING NOTE; PT INCONTINENT LARGE AMOUNT OF URINE AT 1745. DARK IN COLOR. PT RECEIVED PYRIDIUM THIS AM. PVBS DONE SHOWING 22 ML.
[2016-11-07 23:56] VITALS: BP 98/42
--- NOTE | 2016-11-08 07:31 | PN- Housestaff ---
ERVIN HONEYCUTT 11/08/16 0731: Subjective Follow-up For: 1. Community-acquired pneumonia 2. Acute hypoxic respiratory failure 3. transudative effusion 4. Hematuria and painful urination s/p cystoscopy Complaints: pain scale (0-10) Tele-Events Since Last Visit: discontinued telemetry monitoring Subjective: Patient was seen and examined this morning. He is alert awake and oriented to time place and person. No acute events monitored overnight. He remained afebrile. He does report shortness of breath on exertion, dry cough , congestion of lungs. Complains of urethral pain early this morning, 3 out of 10, spasmodic, nonradiating. Not relieving with morphine and dilaudid. He was given IV TORADOL and he slept for some time. No gross hematuria this morning. Urine was clear. Continuous bladder irrigation was stopped Denied any chest pain or pressure, racing of heart, headache, dizziness or lightheadedness. No change in bowel habits. Vitals remained afebrile. Heart rate 75, respiratory rate 22, blood pressure 134/68, saturating at 95% on 2L oxygen discontinued telemetry monitoring. At around 10:00 am his blood pressure droped down to 70/30 and he was given normal saline 500 mL bolus after which blood pressure came up 100/60 Review of Systems Constitutional: Denies: see HPI. Objective Last 24 Hrs of Vital Signs/I&O Vital Signs Date Time Temp Pulse Resp B/P Pulse O2 O2 Flow FiO2 Ox Delivery Rate 11/08 1057 102/51 11/08 1045 94 Nasal 2.0L Cannula 11/08 0920 76/38 11/08 0800 98.0 79 20 98/50 92 Nasal 2.0L Cannula 11/08 0000 Nasal 2.0L Cannula 11/07 2356 98.4 71 20 98/42 91 Nasal Cannula 11/07 2110 76 112/50 11/07 2037 92 Nasal 3.0L Cannula 11/07 1600 93 Nasal 2.0L Cannula 11/07 1530 98.4 74 20 108/50 93 Nasal 2.0L Cannula Intake & Output 11/08 1600 11/08 0800 11/08 0000 Intake Total 100 600 Output Total Balance 100 600 Intake, Oral 100 600 Physical Exam General Appearance: Alert, Oriented X3, Cooperative, No Acute Distress Skin: No Rashes, No Breakdown HEENT: Atraumatic, Mucous Membr. moist/pink Neck: Supple, No JVD Lymphatic: Cervical nl Cardiovascular: Normal S1, Normal S2 Lungs: Normal Air Movement Abdomen: Normal Bowel Sounds, Soft, No Tenderness Extremities: No Clubbing, No Cyanosis, No Edema Vascular: Normal Pulses Current Medications: Current Medications Sig/Emily Start time Last Medication Dose Route Stop Time Status Admin Acetaminophen 650 MG Q8P PRN 11/02 1545 AC 11/02 PO 2249 Acetaminophen 650 MG Q8P PRN 11/02 1445 AC 11/08 PO 0921 Albuterol Sulfate 3 ML BID 11/02 2200 AC 11/08 INH 1032 Benzonatate 100 MG TID 11/02 1144 AC 11/08 PO 0921 Furosemide 40 MG DAILY 11/05 1000 DC 11/06 PO 1002 Guaifenesin 10 ML Q4P PRN 11/08 0915 11/08 PO 0930 Guaifenesin 600 MG Q12 11/02 1140 AC 11/08 PO 0921 Hydromorphone HCl 0.6 MG ONCE ONE 11/07 1715 DC 11/07 IV 11/07 1716 1743 Ketorolac 15 MG .STK-MED ONE 11/07 2316 DC Tromethamine IM 11/07 2317 Ketorolac 30 MG ONCE ONE 11/07 2315 DC 11/07 Tromethamine IV 11/07 2316 2323 Ketorolac 15 MG .STK-MED ONE 11/07 2314 DC Tromethamine IM 11/07 2315 Levothyroxine Sodium 0.05 MG DAILY AC 11/03 0700 AC 11/08 PO 0746 Lidocaine 1 ENEDINA TID PRN 11/06 1515 11/07 TOP 1350 Lisinopril 40 MG DAILY 11/02 1245 AC 11/08 PO 0920 Melatonin 5 MG ONCE ONE 11/08 0215 DC 11/08 PO 11/08 0216 0221 Melatonin 5 MG AT BEDTIME 11/04 2200 11/07 PO 2110 Phenazopyridine HCl 100 MG BID PRN 11/06 0915 11/07 PO 0139 Potassium Chloride 40 MEQ ONCE ONE 11/08 929 DC 11/08 PO 11/08 0931 1107 Potassium Chloride 40 MEQ ONCE ONE 11/07 1929 DC 11/07 PO 11/07 193 2109 Sodium Chloride 500 ML BOLUS ONE 11/08 929 DC 11/08 IV 11/08 1029 0937 Tamsulosin HCl 0.4 MG AT BEDTIME 11/06 2199 AC 11/07 PO 2109 Warfarin Sodium 5 MG COUMADIN 1700 ONE 11/08 1700 AC PO 11/08 170 Warfarin Sodium 5 MG COUMADIN 170 ONE 11/07 1700 DC 11/07 PO 11/07 170 1929 Last 24 Hrs of Lab/Lokesh Results Last 24 Hrs of Labs/Mics: Laboratory Tests 11/08/16 0630: Anion Gap 9, Estimated GFR > 60, BUN/Creatinine Ratio 20.0, PT 13.2 H, INR 1.26 H, CBC w Diff NO MAN DIFF REQ, RBC 3.58 L, MCV 99.5 H, MCH 33.8 H, RDW 14.0, MPV 7.5, Gran % 71.5, Lymphocytes % 19.1 L, Monocytes % 7.9, Eosinophils % 1.1, Basophils % 0.4, Absolute Granulocytes 6.1, Absolute Lymphocytes 1.6, Absolute Monocytes 0.7 H, Absolute Eosinophils 0.1, Absolute Basophils 0, PUBS MCHC 34.0 Assessment/Plan Assessment: This is a 85-year-old male with past medical history significant for atrial fibrillation on warfarin 5 mg, status post permanent pacemaker placement, insomnia, overactive bladder, hypertension, hypothyroidism presented to [facility] emergency department with chief complaint of fever, dry cough, congestion, shortness of breath on exertion, wheezing for 10 days. Of note patient has been to her primary care doctor On October 10 for fever, cough and chest x-ray was done which showed right sided plural effusion and he was sent home on oral antibiotics-5 days of oral azithromycin. However patient still has ongoing dry cough not associated with any sputum production and lung congestion for 10 days. No relief with antibiotics and cough suppressants. Also complains shortness of breath on exertion associated with wheezing. No orthopnea and paroxysmal nocturnal dyspnea. No chest pain, racing of heart, hemoptysis. He denies any smoking. Vitals on Admission-febrile 102.4, tachycardic 120, respiratory rate 24, blood pressure 120/57, saturating at 93% on 2 L. Pertinent labs on admission-WBC 6.2, H&H normal. BEP normal. INR 1.81. First set of troponins were negative. ProBNP 1070. CXR Small right pleural effusion with increased hazy basilar opacities, right greater than left. This appearance could represent atelectasis or pneumonia. chestCT 1. Tree-in-bud opacities within the right upper lobe suggesting small airways disease. 2. Small to moderate right pleural effusion resulting in compressive atelectasis of the right lower lobe. EKG-paced rhythm, PACs, PVCs, 86 bpm. Problem list 1. Community-acquired pneumonia 2. Acute hypoxic respiratory failure 3. Possible parapneumonic effusion vs transudative effusion 4. Hypothyroidism 5. Hypertension 6. Overactive bladder 7. Atrial fibrillation 8. Insomnia 9. hematuria Community-acquired pneumonia Patient presented with fever 102, dry cough, congested lungs, shortness of breath on exertion, wheezing. Of note he failed outpatient treatment for pneumonia 2 weeks ago. He is not on home oxygen. Denies smoking. Normal leukocyte count. Chest x-ray showed small right-sided pleural effusion with increased hazy basilar opacities atelectasis versus pneumonia. CAT scan chest showed right-sided pleural effusion with compressive atelectasis of right lower lobe. -Admitted to telemetry floor for further monitoring -Monitor vitals every shift -Maintain oxygen saturations above 92% -provide supplemental oxygen -Monitor closely for fever, leukocytosis, worsening shortness of breath. -IV antibiotics ceftriaxone -discontinued -Follow-up blood culture, sputum culture-negative so far -Follow-up urine pneumococcal and streptococcal antigen- negative. -Total respiratory care Acute hypoxic respiratory failure Patient presented with shortness of breath on exertion. Of note patient is not on oxygen at home. He desaturated to 84-86% on room air requiring supplemental oxygen. Currently saturating at 94% on 2 L. Respiratory rate greater than 20 on admission. -Continue supplemental oxygen -Maintain saturations above 90% -Total respiratory care Possible parapneumonic effusion vs transudative effusion Patient was treated for community-acquired pneumonia couple of weeks ago. However he failed outpatient treatment for pneumonia. Still complains of cough, congestion, shortness of breath on exertion. High-grade fever 102.. Chest x-ray and CAT scan suggestive of right-sided pleural effusion -Possible parapneumonic effusion -Empyema is less likely, no WBC count elevation. -Diagnostic and therapeutic thoracocentesis-fluid Suggestive of transudate effusion. With PH 7.35, total protein fluid/serum less than 0.5, LDH fluid/ serum less than 0.6. -Cardiology was consulted- regarding transudate effusion. Patient was started on Lasix 40 mg daily. * Lasix was discontinued as there are no signs of congestive heart failure -Echocardiogram - Moderate concentric left ventricular hypertrophy. Normal left ventricular ejection fraction visually estimated at >65. Ruled out pulmonary embolism As the patient has transudate pleural effusion and there are no signs of heart failure, liver failure, renal failure, there is suspicion for pulmonary embolism as he has short of breath, cough, hypoxia, elevated D dimers. VQ scan was done which showed low probability of pulmonary embolus. Hematuria During his hospitalization he developed gross hematuria and dysuria. He has no history of urinary tract infections, prostatitis, or prostate cancer. He had been placed with a Butler catheter yesterday 11/05/16, however upon standing, it fell out and the patient denied pulling it out. Ofnote, He is on warfarin for his atrial fibrillation history and he does have a pacemaker in place. * His urine culture was negative and his renal/bladder ultrasound was normal. * There was difficulty in placing a catheter again. * Patient been to OR on 11/06/2016 for cystoscopy, fulguration of prostate and bladder trigone and bladder neck for gross hematuria. * sTarted on Flomax 0.4 mg daily at bedtime. * Discontinued oxybutynin. * Warfarin restarted as there is no more hematuria * Morphine and dilaudid whenever necessary for pain Findings on cystoscopy: bleeding from prostatic fossa and bladder trigone and bladder neck. Enlarged prostate with no median lobe but lateral kissing lobes. No bladder lesions or tumors. Hypothyroidism Continue home dose of levothyroxine 50 g daily Hypertension Continue home dose of 40 mg lisinopril daily Overactive bladder On oxybutynin- discontinued in the hospital Atrial fibrillation Status post pacemaker placement Warfarin 5 mg daily Insomnia Takes zolfresh 10 mg daily at home Problem List: 1. Community acquired pneumonia 2. Atrial fibrillation 3. Hematuria 4. Hypoxia Pain Ratin Pain Location: urethral pain Pain Goal: Remain pain free Pain Plan: tylinol dilaudid Tomorrow's Labs & Rationales: CBC in the setting of hematuria BEP in the setting of hyponatremia and elevated bicarbonate INR in the setting of subtherapeutic inr Consulting Request: Consulting Specialty: Cardiology MELITON MALIK MD 11/08/16 0949: Attending MD Review Statement Attending Statement Attending MD Statement: examined this patient, discuss w/resident/PA/SOFTWARE REQUIREMENTS ENGINEER, agreed w/resident/PA/SOFTWARE REQUIREMENTS ENGINEER, reviewed EMR data (avail), discussed with nursing, discussed with case mgmt Attending Assessment/Plan: Overall the patient feels better and when I saw him this morning he was walking with physical therapy. With a walker. His O2 sat was 90% on room air. Later on the nurses said he was borderline blood pressure 90/50. He is an 85-year-old male he had a history of moderate aortic stenosis and A. fib on Coumadin. He has a transudate of each effusion of unclear etiology and developed hematuria that was bleeding from the prostate during his hospitalization. Now the Butler is out, he still having some mild hematuria and pain but he is not retaining. I spoke to Dr. Nelson at length and given the fact that he has an elevated d- dimer and a transudate effusion of unclear etiology he feels pursuing a VQ scan would be appropriate. If he has a PE will continue to continue his Coumadin and anticoagulation but it would help us if he bleeds
--- NOTE | 2016-11-08 07:58 | NUR ---
PT HAD C/O PENILE PAIN OVERNIGHT WHICH WAS CONTROLLED WITH MEDICATION. PT REMAINS INC OF BLOOD TINGED URINE AND SWELLING OF THE PENIS. BLADDER SCAN WAS PERFORMED AT APPROXIMATELY 0630 AFTER PT HAD AN INCONTINENT EPISODE AND RESIDUAL WAS 140. WILL CONTINUE TO MONITOR.
[2016-11-08 08:00] VITALS: BP 98/50
[2016-11-08 08:00] LABS: ABSOLUTE BASOPHIL COUNT 0 /CUMM (0.0-0.2); ABSOLUTE EOSINOPHIL COUNT 0.1 /CUMM (0.0-0.7); ABSOLUTE GRANULOCYTE CT 6.1 /CUMM (1.4-6.5); ABSOLUTE LYMPH COUNT 1.6 /CUMM (1.2-3.4); ABSOLUTE MONOCYTE COUNT 0.7 /CUMM (0.10-0.60); BASOPHIL % 0.4 % (0.0-2.0); EOSINOPHIL % 1.1 % (0-5); GRANULOCYTE % 71.5 % (42.2-75.2); HEMATOCRIT 35.6 % (42-52); MEAN CORPUSCULAR HGB 33.8 PG (27.0-31.0); MEAN CORPUSCULAR VOLUME 99.5 FL (80.0-94.0); MEAN PLATELET VOLUME 7.5 FL (7.4-10.4); PLATELET COUNT 181 /CUMM (130-400); RED BLOOD CELL CT 3.58 /CUMM (4.70-6.10); WHITE BLOOD CELL COUNT 8.6 /CUMM (4.8-10.8)
--- NOTE | 2016-11-08 08:14 | PN- Pulmonary ---
Subjective HPI/Critical Care Issues: Patient is here shortness breath is improved however continues to require low flow oxygen. Chest x-ray shows persistent small effusion. D-dimer is elevated. Bicarbonate is improved but he remains hypokalemic. Objective Current Medications: Current Medications Sig/Emily Start time Last Medication Dose Route Stop Time Status Admin Acetaminophen 650 MG Q8P PRN 11/02 1545 AC 11/02 PO 2249 Acetaminophen 650 MG Q8P PRN 11/02 1445 AC 11/06 PO 0828 Acetazolamide 250 MG ONCE ONE 11/07 914 DC 11/07 Sodium Chloride 50 ML IV 11/07 0844 1007 Albuterol Sulfate 3 ML BID 11/02 2200 AC 11/07 INH 2037 Benzonatate 100 MG TID 11/02 1144 AC 11/07 PO 2110 Furosemide 40 MG DAILY 11/05 1000 AC 11/06 PO 1002 Guaifenesin 600 MG Q12 11/02 1140 AC 11/07 PO 2110 Hydromorphone HCl 0.6 MG ONCE ONE 11/07 1715 DC 11/07 IV 11/07 1716 1743 Ketorolac 15 MG .STK-MED ONE 11/07 2316 DC Tromethamine IM 11/07 2317 Ketorolac 30 MG ONCE ONE 11/07 2315 DC 11/07 Tromethamine IV 11/07 2316 2323 Ketorolac 15 MG .STK-MED ONE 11/07 2314 DC Tromethamine IM 11/07 2315 Levothyroxine Sodium 0.05 MG DAILY AC 11/03 0700 AC 11/08 PO 0746 Lidocaine 1 ENEDINA TID PRN 11/06 1515 AC 11/07 TOP 1350 Lisinopril 40 MG DAILY 11/02 1245 AC 11/07 PO 1007 Melatonin 5 MG ONCE ONE 11/08 0215 DC 11/08 PO 11/08 0216 0221 Melatonin 5 MG AT BEDTIME 11/04 2200 AC 11/07 PO 2110 Patient Medication 1 ED .STK-MED ONE 11/07 1358 DC Teaching ED 11/07 1359 Phenazopyridine HCl 100 MG BID PRN 11/06 0815 AC 11/07 PO 0139 Potassium Chloride 40 MEQ ONCE ONE 11/07 1930 DC 11/07 PO 11/07 1931 2109 Tamsulosin HCl 0.4 MG AT BEDTIME 11/06 2200 AC 11/07 PO 2110 Warfarin Sodium 5 MG COUMADIN 1700 ONE 11/07 1700 DC 11/07 PO 11/07 1701 1929 Vital Signs & I&O Last 24 Hrs of Vitals and I&O: Vital Signs Date Time Temp Pulse Resp B/P Pulse O2 O2 Flow FiO2 Ox Delivery Rate 11/08 0000 Nasal 2.0L Cannula 11/07 2356 98.4 71 20 98/42 91 Nasal Cannula 11/07 2110 76 112/50 11/07 2037 92 Nasal 3.0L Cannula 11/07 1600 93 Nasal 2.0L Cannula 11/07 1530 98.4 74 20 108/50 93 Nasal 2.0L Cannula 11/07 1345 92 Nasal 2.0L Cannula 11/07 1340 82 Room Air 11/07 1007 80 110/60 11/07 0852 91 Nasal 3.0L Cannula Intake & Output 11/08 1600 11/08 0800 11/08 0000 Intake Total 100 600 Output Total Balance 100 600 Intake, Oral 100 600 Oxygen saturation 2 L 91% exam of his chest shows diminished breath sounds at the bases there are no wheezes cardiac exam shows regular S1 and S2 without murmurs Impression/Plan Impression/Plan Impression/Plan: 85-year-old gentleman with transudative pleural effusion continues to have complaints of shortness of breath and continues to require low-flow oxygen. The etiology of his transudative effusion is uncertain and for that reason would recommend repeat cardiac ultrasound. He has developed a contraction metabolic alkalosis related to diuresis. Etiology of his persistent restrictive failure is uncertain in view of elevated d-dimer would obtain either CTA or VQ scan Recommendations: Maintain potassium at approximately 4 and give Diamox 250 mg IV 1 dose with markedly abnormal bicarbonate. Follow-up d-dimer. Explanation for transudative effusion is unclear as there is no evidence of hepatic or renal disease and for that reason would consider repeat cardiac ultrasound. Patient needs to be mobilized out of bed with aggressive pulmonary toilet and incentive spirometry to help resolve residual atelectasis. Persistent respiratory failure and elevated d-dimer with suboptimal INR is of concern and thromboembolic event should be excluded
[2016-11-08 08:18] LABS: PT 13.2 SEC (9.4-12.5)
--- NOTE | 2016-11-08 09:23 | ECHOCARDIOGRAM REPORT ---
JUAN ANTONIO CARMONA Age: 85 : 1930 Gender: M Exam Date: 11/07/2016 18:46 Exam Location: [address] Ht (in): 68 Wt (lb): 209 BSA: 2.16 BP: 118 / 70 Ordering Physician: SHAMIKA CESPEDES M Referring Physician: Edwin Fox MD Chief, SoC Technologist: Inez Perry [facility] Room Number: 175 Indications: HEART FAILURE Rhythm: Atrial fibrillation Technical Quality: Good FINDINGS Left Ventricle Normal size left ventricle. Moderate concentric left ventricular hypertrophy. Normal left ventricular ejection fraction visually estimated at >65 %. No obvious regional wall motion abnormalities. Right Ventricle Normal right ventricular size and function. Catheter/pacemaker wire in the right ventricular cavity. Right Atrium Mild right atrial dilatation. Catheter/pacemaker wire in the right atrial cavity. Left Atrium Mild to moderate left atrial dilatation. Mitral Valve Mild thickening/calcification of the mitral valve leaflets. Mild mitral annular calcification. No mitral regurgitation. Aortic Valve Diffuse thickening of the aortic valve cusps with reduced excursion. Moderate aortic stenosis. Mild aortic regurgitation. Tricuspid Valve Structurally normal tricuspid valve. Mild to moderate tricuspid regurgitation. Right ventricular systolic pressure estimated to be elevated at 55-60 mmHg. Moderate to severe pulmonary hypertension. Pulmonic Valve Pulmonic valve not well visualized, grossly normal. No pulmonic regurgitation. Pericardium No pericardial or pleural effusion. Great Vessels The aortic root is normal diameter. The ascending aorta is upper limits of normal diameter 3.7 cm. Dilated IVC. CONCLUSIONS Moderate concentric left ventricular hypertrophy. Normal left ventricular ejection fraction visually estimated at >65 No obvious regional wall motion abnormalities. Catheter/pacemaker wire in the right ventricular cavity. Catheter/pacemaker wire in the right atrial cavity. Mild to moderate left atrial dilatation. Mild thickening/calcification of the mitral valve leaflets. Mild mitral annular calcification. Mild to moderate tricuspid regurgitation. Right ventricular systolic pressure estimated to be elevated at 55- 60 mmHg. Moderate to severe pulmonary hypertension. The ascending aorta is upper limits of normal diameter 3.7 cm. Dilated IVC. Ediwn Fox M.D. (Electronically Signed) Final Date: 08 November 2016 09:23 MEASUREMENTS (Male / Female) Normal Values 2D ECHO LV Diastolic Diameter PLAX 4.0 cm 4.2 - 5.9 / 3.9 - 5.3 cm LV Systolic Diameter PLAX 2.2 cm 2.1 - 4.0 cm LV Fractional Shortening PLAX 45.0 % 25 - 46 % LV Ejection Fraction 2D Teich 76.9 % IVS Diastolic Thickness 1.5 cm LVPW Diastolic Thickness 1.5 cm LV Relative Wall Thickness 0.8 RV Internal Dim ED PLAX 3.7 cm 1.9 - 3.8 cm LVOT Diameter 2.1 cm Aortic Root Diameter 3.1 cm LA Systolic Diameter LX 5.1 cm 3.0 - 4.0 / 2.7 - 3.8 cm LA Volume 72.0 cm 18 - 58 / 22 - 52 cm Ascending Aorta Diameter 3.7 cm DOPPLER AV Peak Velocity 299.0 cm/s AV Peak Gradient 35.8 mmHg AV Mean Velocity 207.0 cm/s AV Mean Gradient 20.0 mmHg AV Velocity Time Integral 47.9 cm LVOT Peak Velocity 128.0 cm/s LVOT Peak Gradient 6.6 mmHg LVOT Mean Velocity 88.0 cm/s LVOT Mean Gradient 4.0 mmHg LVOT Velocity Time Integral 22.8 cm LVOT Stroke Volume 79.0 cm AV Area Cont Eq vti 1.6 cm AV Area Cont Eq pk 1.5 cm MV Peak Velocity 102.0 cm/s MV Peak Gradient 4.2 mmHg MV Mean Velocity 44.8 cm/s MV Mean Gradient 1.0 mmHg Mitral E Point Velocity 108.0 cm/s MV PHT Velocity 106.0 cm/s MV Deceleration Rapides 441.0 cm/s MV Pressure Half Time 72.1 ms MV Area PHT 3.1 cm MV Deceleration Time 185.0 ms TR Peak Velocity 362.0 cm/s TR Peak Gradient 52.4 mmHg Right Atrial Pressure 5.0 mmHg Pulmonary Artery Systolic Pressu 57.4 mmHg Right Ventricular Systolic Press 57.4 mmHg PV Peak Velocity 114.0 cm/s PV Peak Gradient 5.2 mmHg PV Mean Velocity 73.7 cm/s PV Mean Gradient 3.0 mmHg PV Velocity Time Integral 17.7 cm LV E' Lateral Velocity 9.3 cm/s Mitral E to LV E' Lateral Ratio 11.6 LV E' Septal Velocity 8.4 cm/s Mitral E to LV E' Septal Ratio 12.9
--- NOTE | 2016-11-08 09:51 | NUR ---
THIS RN WAS GIVING PATIENT HIS AM MEDS AND REPEATED HIS BP WHICH WAS SYSTOLICALLY IN THE 90'S @ 0800. BP DROPPED AGAIN TO 76/38 WITH ANOTHER RN CHECKING IT. MD ORDERED A 500ML BOLUS. PT TO GO FOR A VQ SCAN @1100, D-DIMER INCREASED.
--- NOTE | 2016-11-08 10:49 | PN- Cardiology ---
Subjective Subjective: The patient is doing better. He is breathing easier. His Butler catheter is out. He had an echocardiogram yesterday which is similar to his previous one. This shows moderate aortic stenosis and moderate to severe pulmonary hypertension. Left ventricular systolic function was good. Objective Vital Signs and I&Os Vital Signs Date Time Temp Pulse Resp B/P Pulse O2 O2 Flow FiO2 Ox Delivery Rate 11/08 08 98.0 79 20 98/50 92 Nasal 2.0L Cannula 11/08 0000 Nasal 2.0L Cannula 11/07 2356 98.4 71 20 98/42 91 Nasal Cannula 11/07 2110 76 112/50 11/07 2037 92 Nasal 3.0L Cannula 11/07 1600 93 Nasal 2.0L Cannula 11/07 1530 98.4 74 20 108/50 93 Nasal 2.0L Cannula 11/07 1345 92 Nasal 2.0L Cannula 11/07 1340 82 Room Air Intake & Output 11/08 1600 11/08 0800 11/08 0000 11/07 1600 11/07 0800 11/07 0000 Intake Total 100 600 540 800 400 Output Total 475 400 750 Balance 100 600 65 400 -350 Intake, IV 100 600 200 Intake, Oral 100 600 440 200 200 Number 0 Bowel Movements Output, Urine 475 400 750 Patient 210 lb Weight Physical Exam: He is in no distress at this time HEENT exam is normal Chest reveals mild expiratory wheezing Heart reveals a systolic ejection murmur at the base There is no peripheral edema Current Medications: Current Medications Sig/Emily Start time Last Medication Dose Route Stop Time Status Admin Acetaminophen 650 MG Q8P PRN 11/02 1545 AC 11/02 PO 2249 Acetaminophen 650 MG Q8P PRN 11/02 1445 AC 11/08 PO 0921 Albuterol Sulfate 3 ML BID 11/02 2200 AC 11/08 INH 1032 Benzonatate 100 MG TID 11/02 1144 AC 11/08 PO 0921 Furosemide 40 MG DAILY 11/05 1000 DC 11/06 PO 1002 Guaifenesin 10 ML Q4P PRN 11/08 0915 AC 11/08 PO 0930 Guaifenesin 600 MG Q12 11/02 1140 AC 11/08 PO 0921 Hydromorphone HCl 0.6 MG ONCE ONE 11/07 1715 DC 11/07 IV 11/07 171 1743 Ketorolac 15 MG .STK-MED ONE 11/07 2315 DC Tromethamine IM 11/07 2317 Ketorolac 30 MG ONCE ONE 11/07 2315 DC 11/07 Tromethamine IV 11/07 2315 2323 Ketorolac 15 MG .STK-MED ONE 11/074 DC Tromethamine IM 11/07 2314 Levothyroxine Sodium 0.05 MG DAILY AC 11/03 0700 AC 11/08 PO 0746 Lidocaine 1 ENEDINA TID PRN 11/06 1515 AC 11/07 TOP 1350 Lisinopril 40 MG DAILY 11/02 1245 AC 11/07 PO 1007 Melatonin 5 MG ONCE ONE 11/08 0215 DC 11/08 PO 11/08 0216 0221 Melatonin 5 MG AT BEDTIME 11/04 220 AC 11/07 PO 2110 Patient Medication 1 ED .STK-MED ONE 11/07 1358 DC Teaching ED 11/07 1359 Phenazopyridine HCl 100 MG BID PRN 11/06 0915 AC 11/07 PO 0139 Potassium Chloride 40 MEQ ONCE ONE 11/08 0930 DC PO 11/08 0931 Potassium Chloride 40 MEQ ONCE ONE 11/07 1930 DC 11/07 PO 11/07 1931 2109 Sodium Chloride 500 ML BOLUS ONE 11/08 0930 DC 11/08 IV 11/08 1029 0937 Tamsulosin HCl 0.4 MG AT BEDTIME 11/06 220 11/07 PO 2110 Warfarin Sodium 5 MG COUMADIN 1700 ONE 11/07 1700 DC 11/07 PO 11/07 1701 1929 Results Last 48 Hrs of Labs/Mics: Laboratory Tests 11/08/16 0630: Anion Gap 9, Estimated GFR > 60, BUN/Creatinine Ratio 20.0, PT 13.2 H, INR 1.26 H, CBC w Diff NO MAN DIFF REQ, RBC 3.58 L, MCV 99.5 H, MCH 33.8 H, RDW 14.0, MPV 7.5, Gran % 71.5, Lymphocytes % 19.1 L, Monocytes % 7.9, Eosinophils % 1.1, Basophils % 0.4, Absolute Granulocytes 6.1, Absolute Lymphocytes 1.6, Absolute Monocytes 0.7 H, Absolute Eosinophils 0.1, Absolute Basophils 0, PUBS MCHC 34.0 11/07/16 0750: Anion Gap 9, Estimated GFR > 60, BUN/Creatinine Ratio 22.9, PT 12.7 H, INR 1.21 H, D-Dimer 554 H, CBC w Diff NO MAN DIFF REQ, RBC 3.83 L, MCV 99.7 H, MCH 33.7 H, RDW 12.7, MPV 7.8, Gran % 73.5, Lymphocytes % 17.8 L, Monocytes % 7.9, Eosinophils % 0.5, Basophils % 0.3, Absolute Granulocytes 5.5, Absolute Lymphocytes 1.3, Absolute Monocytes 0.6, Absolute Eosinophils 0, Absolute Basophils 0, PUBS MCHC 33.8 Recent Imaging Studies: CONCLUSIONS Moderate concentric left ventricular hypertrophy. Normal left ventricular ejection fraction visually estimated at >65 No obvious regional wall motion abnormalities. Catheter/pacemaker wire in the right ventricular cavity. Catheter/pacemaker wire in the right atrial cavity. Mild to moderate left atrial dilatation. Mild thickening/calcification of the mitral valve leaflets. Mild mitral annular calcification. Mild to moderate tricuspid regurgitation. Right ventricular systolic pressure estimated to be elevated at 55- 60 mmHg. Moderate to severe pulmonary hypertension. The ascending aorta is upper limits of normal diameter 3.7 cm. Dilated IVC. Edwin Fox M.D. (Electronically Signed) Final Date: 08 November 2016 09:23 PATIENT: JUAN ANTONIO CARMONA PRESENT AGE: 85 PATIENT ACCOUNT NO: [id number] : 31 LOCATION: [facility] ORDERING PHYSICIAN: KRAIG HONEYCUTT MD SERVICE DATE: 11/07/16- EXAM TYPE: RAD - XRY-PORTABLE CHEST XRAY EXAMINATION: XR PORTABLE CHEST CLINICAL INFORMATION: Assess right-sided pleural effusion COMPARISON: 11/05/2016 TECHNIQUE: Portable view of the chest was obtained. FINDINGS: Small right-sided pleural-based abnormality persists. Equivocal trace left-sided pleural effusion. Right-sided pacemaker remains stable and intact. No CHF or infiltrate seen. No ectopic air. Heart size remains enlarged. IMPRESSION: Persistent small right-sided pleural effusion. Equivocal trace left-sided pleural effusion. No CHF. DICTATED BY: MALCOLM BAKER MD DATE/TIME DICTATED:11/07/161529 DOG RAISER:[id number] DATE/TIME TRANSCRIBED:11/07/161529 CONFIDENTIAL, DO NOT COPY WITHOUT APPROPRIATE AUTHORIZATION. <Electronically signed in Other Vendor System> SIGNED BY: MALCOLM BAKER MD 11/07/16 9568 Assessment/Plan Assessment/Plan The patient's respiratory status seems improved. He may be a little dehydrated. His Lasix will be on hold for now. He probably needs to go home on a small dose of Lasix however. His warfarin is being restarted. He will be having a lung scan today which hopefully will be negative. He is on track to be discharged tomorrow. Continue telemetry? Not applicable
[2016-11-08 10:57] VITALS: BP 102/51
[2016-11-08] MEDS ORDERED: FLOMAX0.4 M1 PO (11:09)
[2016-11-08] MEDS ORDERED: BENZONATATE100 M1 PO (11:10)
[2016-11-08] MEDS ORDERED: ALBUTEROL2.5 MG/3 M INH (11:10)
--- NOTE | 2016-11-08 12:59 | NUCLEAR MEDICINE REPORT ---
EXAMINATION: PULMONARY VENTILATION PERFUSION STUDY CLINICAL INFORMATION: Shortness of breath, cough, elevated d-dimer. COMPARISON: No previous lung scan is available for comparison. Chest radiograph dated 11/05/2016 is available for comparison. TECHNIQUE: Serial dual detector gamma scintillation camera images were obtained over the chest in the RPO and LPO projections during the single breath, equilibrium rebreathing and washout of 19.7 mCi Xe 133 gas. The patient then received 4.4 mCi Tc-99m MAA intravenously and an 8-view perfusion study was performed. FINDINGS: Ventilation images: On the single breath and equilibrium images there is homogeneous distribution of gas bilaterally. During the washout phase there is no abnormal retention. Perfusion images: No segmental perfusion defects are present. There is homogeneous distribution of activity bilaterally. There are no focal or anatomic appearing perfusion defects present. The cardiac silhouette is moderately dilated. IMPRESSION: Very low probability of pulmonary embolism.
[2016-11-08 15:30] VITALS: BP 102/58
--- NOTE | 2016-11-08 16:33 | NUR ---
LATE ENTRY - PT'S O2 SAT WAS 88% ON RA AFTER MEDS WERE GIVEN & PT WAS FOUND TO BE HYPOTENSIVE.
--- NOTE | 2016-11-08 20:09 | NUR ---
REPORT GIVEN TO SANJAY MONTANO. TRANSPORT CALLED FOR PT TO GO TO ROOM 215
[2016-11-08 21:00] VITALS: BP 110/60
--- NOTE | 2016-11-08 21:25 | NUR ---
RASH NOTED TO GROIN AREA - [facility] ORDERED, PER MD HELMS 0EI D/C TELE MONITORING, PER NURSE REPORT PT HAD LOW BP'S EARLIER, CURRENT VITALS BP 125/56 P 64- FLOMAX SCHEDULED AT THIS TIME: PER OKAY TO GIVE. ALPS PLACED ON PT, CALL LIGHT WITHIN REACH, BED ALARM ON.
[2016-11-08 21:29] VITALS: BP 125/56
[2016-11-09 00:17] VITALS: BP 102/56
--- NOTE | 2016-11-09 08:05 | NUR ---
THIS RN IN ROOM TO ASSESS PATIENT; PATIENT STATES AT THIS TIME "MY EYES ARE BURNING"; SLIGHT REDNESS NOTED TO EYES; PATIENT WASHED FACE WITH DAMP CLOTH AND COOL CLOTH PLACED OVER EYES; THIS RN ASKED PATIENT IF THE COOL CLOTH PROVIDED RELIEF TO WHICH HE STATED "YES"; DR SAMI RIVERA NOTFIED AND AWARE; ARTIFICAL TEARS ORDERED BY DR RIVERA; AWAITING MED ARRIVAL FROM PHARMACY;
[2016-11-09 08:30] VITALS: BP 110/60
--- NOTE | 2016-11-09 08:31 | PN- Pulmonary ---
Subjective HPI/Critical Care Issues: Patient feels less short of breath the remains oxygen dependent. Cardiac echo continues to show evidence of pulmonary hypertension with aortic stenosis. Objective Current Medications: Current Medications Sig/Emily Start time Last Medication Dose Route Stop Time Status Admin Acetaminophen 650 MG .STK-MED ONE 11/08 908 DC PO 11/08 0910 Acetaminophen 650 MG Q8P PRN 11/02 1545 AC 11/02 PO 2249 Acetaminophen 650 MG Q8P PRN 11/02 1445 AC 11/08 PO 0921 Albuterol Sulfate 3 ML BID 11/02 2200 AC 11/08 INH 1935 Artificial Tears 2 GTT 4 TIMES/DAY 11/09 0759 AC OPH Benzonatate 100 MG TID 11/02 1144 AC 11/08 PO 2130 Furosemide 40 MG DAILY 11/05 1000 DC 11/06 PO 1002 Guaifenesin 10 ML Q4P PRN 11/08 0915 AC 11/08 PO 0930 Guaifenesin 600 MG Q12 11/02 1140 AC 11/08 PO 2130 Levothyroxine Sodium 0.05 MG DAILY AC 11/03 0700 AC 11/09 PO 0627 Lidocaine 1 ENEDINA TID PRN 11/06 1515 AC 11/09 TOP 0620 Lisinopril 40 MG DAILY 11/02 1245 AC 11/08 PO 0920 Melatonin 5 MG AT BEDTIME 11/04 2200 AC 11/08 PO 2130 Nystatin 1 ENEDINA BID 11/08 2200 AC 11/09 TOP 0040 Phenazopyridine HCl 100 MG BID PRN 11/06 0915 AC 11/07 PO 0139 Potassium Chloride 40 MEQ ONCE ONE 11/08 929 DC 11/08 PO 11/08 0931 1107 Sodium Chloride 500 ML BOLUS ONE 11/08 929 DC 11/08 IV 11/08 1029 0937 Tamsulosin HCl 0.4 MG AT BEDTIME 11/06 2200 AC 11/08 PO 2131 Warfarin Sodium 5 MG COUMADIN 1700 ONE 11/08 170 DC 11/08 PO 11/08 1701 1732 Vital Signs & I&O Last 24 Hrs of Vitals and I&O: Vital Signs Date Time Temp Pulse Resp B/P Pulse O2 O2 Flow FiO2 Ox Delivery Rate 11/09 0017 97.6 66 18 102/56 93 Nasal 2.0L Cannula 11/08 2130 64 125/56 01/11 2129 64 125/56 11/08 2100 Nasal 2.0L Cannula 11/08 2100 97.7 73 18 110/60 92 Nasal 2.0L Cannula 11/08 1936 92 Nasal 2.0L Cannula 11/08 1600 Nasal 2.0L Cannula 11/08 1530 97.5 63 20 102/58 95 Nasal 2.0L Cannula 11/08 1057 102/51 11/08 1045 94 Nasal 2.0L Cannula 11/08 0920 76/38 Intake & Output 11/09 1600 11/09 0800 11/09 0000 Intake Total 100 320 Output Total Balance 100 320 Intake, Oral 100 320 Oxygen saturation 2 L 93% exam of his chest shows diminished breath sounds at the bases there are no wheezes cardiac exam shows regular S1 and S2 without audible murmurs Impression/Plan Impression/Plan Impression/Plan: 85-year-old gentleman with transudative pleural effusion . Evaluation for pulmonary embolism is unrevealing. Recommendations: Ensure potassium remains approximately 4. Taper FiO2 his saturations allow but he will need oxygen at discharge. Outpatient evaluation for pulmonary function tests and evaluation for sleep apnea.
[2016-11-09 08:39] LABS: PT 13.4 SEC (9.4-12.5)
[2016-11-09 09:07] LABS: ABSOLUTE BASOPHIL COUNT 0 /CUMM (0.0-0.2); ABSOLUTE EOSINOPHIL COUNT 0.2 /CUMM (0.0-0.7); ABSOLUTE GRANULOCYTE CT 5.8 /CUMM (1.4-6.5); ABSOLUTE LYMPH COUNT 1.3 /CUMM (1.2-3.4); ABSOLUTE MONOCYTE COUNT 0.5 /CUMM (0.10-0.60); BASOPHIL % 0.4 % (0.0-2.0); EOSINOPHIL % 2.5 % (0-5); GRANULOCYTE % 74.3 % (42.2-75.2); HEMATOCRIT 36.2 % (42-52); MEAN CORPUSCULAR VOLUME 99.8 FL (80.0-94.0); MEAN PLATELET VOLUME 7.6 FL (7.4-10.4); PLATELET COUNT 214 /CUMM (130-400); RBC DISTRIBUTION WIDTH 13.9 % (11.5-14.5); RED BLOOD CELL CT 3.63 /CUMM (4.70-6.10); WHITE BLOOD CELL COUNT 7.9 /CUMM (4.8-10.8)
[2016-11-09] MEDS ORDERED: TOPICAINE113 GM TOP (09:20)
[2016-11-09] MEDS ORDERED: PROAIR HFA8.5 GM INH (09:20)
--- NOTE | 2016-11-09 09:28 | PN- Housestaff ---
Assessment/Plan Assessment: This is a 85-year-old male with past medical history significant for atrial fibrillation on warfarin 5 mg, status post permanent pacemaker placement, insomnia, overactive bladder, hypertension, hypothyroidism presented to [facility] emergency department with chief complaint of fever, dry cough, congestion, shortness of breath on exertion, wheezing for 10 days. Of note patient has been to her primary care doctor On October 10 for fever, cough and chest x-ray was done which showed right sided plural effusion and he was sent home on oral antibiotics-5 days of oral azithromycin. However patient still has ongoing dry cough not associated with any sputum production and lung congestion for 10 days. No relief with antibiotics and cough suppressants. Also complains shortness of breath on exertion associated with wheezing. No orthopnea and paroxysmal nocturnal dyspnea. No chest pain, racing of heart, hemoptysis. He denies any smoking. Vitals on Admission-febrile 102.4, tachycardic 120, respiratory rate 24, blood pressure 120/57, saturating at 93% on 2 L. Pertinent labs on admission-WBC 6.2, H&H normal. BEP normal. INR 1.81. First set of troponins were negative. ProBNP 1070. CXR Small right pleural effusion with increased hazy basilar opacities, right greater than left. This appearance could represent atelectasis or pneumonia. chestCT 1. Tree-in-bud opacities within the right upper lobe suggesting small airways disease. 2. Small to moderate right pleural effusion resulting in compressive atelectasis of the right lower lobe. EKG-paced rhythm, PACs, PVCs, 86 bpm. Problem list 1. Community-acquired pneumonia 2. Acute hypoxic respiratory failure 3. Possible parapneumonic effusion vs transudative effusion 4. Hypothyroidism 5. Hypertension 6. Overactive bladder 7. Atrial fibrillation 8. Insomnia 9. hematuria Community-acquired pneumonia Patient presented with fever 102, dry cough, congested lungs, shortness of breath on exertion, wheezing. Of note he failed outpatient treatment for pneumonia 2 weeks ago. He is not on home oxygen. Denies smoking. Normal leukocyte count. Chest x-ray showed small right-sided pleural effusion with increased hazy basilar opacities atelectasis versus pneumonia. CAT scan chest showed right-sided pleural effusion with compressive atelectasis of right lower lobe. -Admitted to telemetry floor for further monitoring -Monitor vitals every shift -Maintain oxygen saturations above 92% -provide supplemental oxygen -Monitor closely for fever, leukocytosis, worsening shortness of breath. -IV antibiotics ceftriaxone -discontinued -Follow-up blood culture, sputum culture-negative so far -Follow-up urine pneumococcal and streptococcal antigen- negative. -Total respiratory care Acute hypoxic respiratory failure Patient presented with shortness of breath on exertion. Of note patient is not on oxygen at home. He desaturated to 84-86% on room air requiring supplemental oxygen. Currently saturating at 94% on 2 L. Respiratory rate greater than 20 on admission. -Continue supplemental oxygen -Maintain saturations above 90% -Total respiratory care Possible parapneumonic effusion vs transudative effusion Patient was treated for community-acquired pneumonia couple of weeks ago. However he failed outpatient treatment for pneumonia. Still complains of cough, congestion, shortness of breath on exertion. High-grade fever 102.. Chest x-ray and CAT scan suggestive of right-sided pleural effusion -Possible parapneumonic effusion -Empyema is less likely, no WBC count elevation. -Diagnostic and therapeutic thoracocentesis-fluid Suggestive of transudate effusion. With PH 7.35, total protein fluid/serum less than 0.5, LDH fluid/ serum less than 0.6. -Cardiology was consulted- regarding transudate effusion. Patient was started on Lasix 40 mg daily. * Lasix was discontinued as there are no signs of congestive heart failure -Echocardiogram - Moderate concentric left ventricular hypertrophy. Normal left ventricular ejection fraction visually estimated at >65. Ruled out pulmonary embolism As the patient has transudate pleural effusion and there are no signs of heart failure, liver failure, renal failure, there is suspicion for pulmonary embolism as he has short of breath, cough, hypoxia, elevated D dimers. VQ scan was done which showed low probability of pulmonary embolus. Hematuria During his hospitalization he developed gross hematuria and dysuria. He has no history of urinary tract infections, prostatitis, or prostate cancer. He had been placed with a Butler catheter yesterday 11/05/16, however upon standing, it fell out and the patient denied pulling it out. Ofnote, He is on warfarin for his atrial fibrillation history and he does have a pacemaker in place. * His urine culture was negative and his renal/bladder ultrasound was normal. * There was difficulty in placing a catheter again. * Patient been to OR on 11/06/2016 for cystoscopy, fulguration of prostate and bladder trigone and bladder neck for gross hematuria. * sTarted on Flomax 0.4 mg daily at bedtime. * Discontinued oxybutynin. * Warfarin restarted as there is no more hematuria * Morphine and dilaudid whenever necessary for pain Findings on cystoscopy: bleeding from prostatic fossa and bladder trigone and bladder neck. Enlarged prostate with no median lobe but lateral kissing lobes. No bladder lesions or tumors. Hypothyroidism Continue home dose of levothyroxine 50 g daily Hypertension Continue home dose of 40 mg lisinopril daily Overactive bladder On oxybutynin- discontinued in the hospital Atrial fibrillation Status post pacemaker placement Warfarin 5 mg daily Insomnia Takes zolfresh 10 mg daily at home Consulting Request: Consulting Specialty: Cardiology
--- NOTE | 2016-11-09 10:40 | PN- Att Addend ---
Attending Addendum Attending Brief Note Patient seen and examined. I also talked to the nurse, the senior design engineering specialist the home delivery driver and the family. He walked with physical therapy but he feels very weak. He also desaturates easily with walking in 1 L down to 85%. His blood pressure remains low side. And at this point I don't think we should not restart the Lasix given the low blood pressure, the contraction metabolic alkalosis and the ongoing discomfort with urination. At this point I think he is too fragile to go home and will be better served in a rehabilitation facility. I think the fact that he is new to oxygen, has a transudative effusion that's small but persistent, the fact that he may need Lasix reintroduced at a low dose. He also had the BPH with hematuria and had a cystoscopy with removal of clots and for these reasons I think he needs ongoing PT, close medical follow-up and STR
--- NOTE | 2016-11-09 13:28 | PN- Cardiology ---
Subjective Subjective: The patient is feeling better. He is now on the general medicine floor. He denies chest pain or excessive shortness of breath. He was going to be discharged today but the plan has changed from home to short-term rehabilitation and a rehabilitation bed is being searched for. Objective Vital Signs and I&Os Vital Signs Date Time Temp Pulse Resp B/P Pulse O2 O2 Flow FiO2 Ox Delivery Rate 11/09 1135 93 Nasal 2.0L Cannula 11/09 1112 Nasal 2.0L Cannula 11/09 0901 134/60 11/09 0830 97.9 70 18 110/60 92 Nasal 2.0L Cannula 11/09 0800 92 Nasal 2.0L Cannula 11/09 0017 97.6 66 18 102/56 93 Nasal 2.0L Cannula 11/08 2131 64 125/56 11/08 2129 64 125/56 11/08 2100 Nasal 2.0L Cannula 11/08 2100 97.7 73 18 110/60 92 Nasal 2.0L Cannula 11/08 1936 92 Nasal 2.0L Cannula 11/08 1600 Nasal 2.0L Cannula 11/08 1530 97.5 63 20 102/58 95 Nasal 2.0L Cannula Intake & Output 11/09 1600 11/09 0800 11/09 0000 11/08 1600 11/08 0800 11/08 0000 Intake Total 012 192 4397 100 600 Output Total Balance 061 291 4047 100 600 Intake, IV 500 Intake, Oral 100 320 500 100 600 Physical Exam: He is in no distress HEENT exam is normal Chest reveals mild expiratory wheezing Heart reveals systolic ejection murmur at the base Extremities no edema Current Medications: Current Medications Sig/Emily Start time Last Medication Dose Route Stop Time Status Admin Acetaminophen 650 MG Q8P PRN 11/02 1545 AC 11/02 PO 2249 Acetaminophen 650 MG Q8P PRN 11/02 1445 AC 11/09 PO 1106 Albuterol Sulfate 3 ML BID 11/02 2200 AC 11/09 INH 1134 Artificial Tears 2 GTT 4 TIMES/DAY 11/09 0759 AC 11/09 OPH 0901 Benzonatate 100 MG TID 11/02 1144 AC 11/09 PO 0859 Guaifenesin 10 ML Q4P PRN 11/08 0915 AC 11/08 PO 0930 Guaifenesin 600 MG Q12 11/02 1140 AC 11/09 PO 0901 Levothyroxine Sodium 0.05 MG DAILY AC 11/03 0700 AC 11/09 PO 0627 Lidocaine 1 ENEDINA TID PRN 11/06 1515 AC 11/09 TOP 0620 Lisinopril 40 MG DAILY 11/02 1245 AC 11/09 PO 0901 Melatonin 5 MG AT BEDTIME 11/04 2200 AC 11/08 PO 2130 Nystatin 1 ENEDINA BID 11/08 2200 AC 11/09 TOP 0901 Phenazopyridine HCl 100 MG BID PRN 11/06 0915 AC 11/07 PO 0139 Tamsulosin HCl 0.4 MG AT BEDTIME 11/06 220 AC 11/08 PO 2131 Warfarin Sodium 5 MG COUMADIN 1700 ONE 11/08 1700 DC 11/08 PO 11/08 1701 1732 Results Last 48 Hrs of Labs/Mics: Laboratory Tests 11/09/16 0750: Anion Gap 11, Estimated GFR > 60, BUN/Creatinine Ratio 24.3, PT 13.4 H, INR 1.28 H, CBC w Diff NO MAN DIFF REQ, RBC 3.63 L, MCV 99.8 H, MCH 34.0 H, RDW 13.9, MPV 7.6, Gran % 74.3, Lymphocytes % 15.9 L, Monocytes % 6.9, Eosinophils % 2.5, Basophils % 0.4, Absolute Granulocytes 5.8, Absolute Lymphocytes 1.3, Absolute Monocytes 0.5, Absolute Eosinophils 0.2, Absolute Basophils 0, PUBS MCHC 34.0 11/08/16 0630: Anion Gap 9, Estimated GFR > 60, BUN/Creatinine Ratio 20.0, PT 13.2 H, INR 1.26 H, CBC w Diff NO MAN DIFF REQ, RBC 3.58 L, MCV 99.5 H, MCH 33.8 H, RDW 14.0, MPV 7.5, Gran % 71.5, Lymphocytes % 19.1 L, Monocytes % 7.9, Eosinophils % 1.1, Basophils % 0.4, Absolute Granulocytes 6.1, Absolute Lymphocytes 1.6, Absolute Monocytes 0.7 H, Absolute Eosinophils 0.1, Absolute Basophils 0, PUBS MCHC 34.0 11/07/16 2311: Urine Color Cancelled, Urine Clarity Cancelled, Urine pH Cancelled, Ur Specific [place] Cancelled, Urine Protein Cancelled, Urine Ketones Cancelled, Urine Nitrite Cancelled, Urine Bilirubin Cancelled, Urine Urobilinogen Cancelled, Ur Leukocyte Esterase Cancelled, Ur Microscopic Cancelled, Urine Hemoglobin Cancelled, Urine Glucose Cancelled Recent Imaging Studies: Lung scan was very low probability of pulmonary embolism Assessment/Plan Assessment/Plan The patient's lung scan was negative. His echo did not show any significant differences from his previous one. He is slowly improving from a respiratory standpoint. Coumadin has been restarted. I recommend continuing on the same medication. I would send him out on 20 mg of Lasix daily. He does not need bridging for his Coumadin. He just can be continued on his usual dose and monitor INRs. Continue telemetry? Not applicable
--- NOTE | 2016-11-09 15:35 | PN- Housestaff ---
Subjective Follow-up For: 1. Community-acquired pneumonia 2. Acute hypoxic respiratory failure 3. transudative effusion 4. Hematuria and painful urination s/p cystoscopy Complaints: pain scale (0-10) Tele-Events Since Last Visit: discontinued telemetry monitoring Subjective: Patient was seen and examined this morning. He is alert awake and oriented to time place and person. No acute events monitored overnight. He remained afebrile. He does report shortness of breath on exertion, dry cough , congestion of lungs-subsiding since admission. No gross hematuria this morning. Urine was clear. Urethral pain came down. Continuous bladder irrigation was stopped. Foleys catheter was removed. Denied any chest pain or pressure, racing of heart, headache, dizziness or lightheadedness. No change in bowel habits. Vitals remained afebrile. Heart rate 70, respiratory rate 22, blood pressure 134/68, saturating at 93% on 2L oxygen discontinued telemetry monitoring. Review of Systems Constitutional: Denies: see HPI. Objective Last 24 Hrs of Vital Signs/I&O Vital Signs Date Time Temp Pulse Resp B/P Pulse O2 O2 Flow FiO2 Ox Delivery Rate 11/09 1135 93 Nasal 2.0L Cannula 11/09 1112 Nasal 2.0L Cannula 11/09 0901 134/60 11/09 0830 97.9 70 18 110/60 92 Nasal 2.0L Cannula 11/09 0800 92 Nasal 2.0L Cannula 11/09 0017 97.6 66 18 102/56 93 Nasal 2.0L Cannula 11/08 2131 64 125/56 11/08 2129 64 125/56 11/08 2100 Nasal 2.0L Cannula 11/08 2100 97.7 73 18 110/60 92 Nasal 2.0L Cannula 11/08 1936 92 Nasal 2.0L Cannula 11/08 1600 Nasal 2.0L Cannula 11/08 1530 97.5 63 20 102/58 95 Nasal 2.0L Cannula Intake & Output 11/09 1600 11/09 0800 11/09 0000 Intake Total 600 100 320 Output Total Balance 600 100 320 Intake, IV 0 Intake, Oral 600 100 320 Number 0 Bowel Movements Physical Exam General Appearance: Alert, Oriented X3, Cooperative, No Acute Distress Skin: No Rashes, No Breakdown HEENT: Atraumatic, Mucous Membr. moist/pink Neck: Supple, No JVD Lymphatic: Cervical nl Cardiovascular: Normal S1, Normal S2 Lungs: Normal Air Movement Abdomen: Normal Bowel Sounds, Soft, No Tenderness Extremities: No Clubbing, No Cyanosis, No Edema, Normal Pulses Vascular: Normal Pulses, Pulses Symmetrical Current Medications: Current Medications Sig/Emily Start time Last Medication Dose Route Stop Time Status Admin Acetaminophen 650 MG Q8P PRN 11/02 1545 AC 11/02 PO 2249 Acetaminophen 650 MG Q8P PRN 11/02 1445 AC 11/09 PO 1106 Albuterol Sulfate 3 ML BID 11/02 2200 AC 11/09 INH 1134 Artificial Tears 2 GTT 4 TIMES/DAY 11/09 0759 AC 11/09 OPH 1330 Benzonatate 100 MG TID 11/02 1144 AC 11/09 PO 0859 Guaifenesin 10 ML Q4P PRN 11/08 0915 AC 11/08 PO 0930 Guaifenesin 600 MG Q12 11/02 1140 AC 11/09 PO 0901 Levothyroxine Sodium 0.05 MG DAILY AC 11/03 0700 AC 11/09 PO 0627 Lidocaine 1 ENEDINA TID PRN 11/06 1515 AC 11/09 TOP 0620 Lisinopril 40 MG DAILY 11/02 1245 AC 11/09 PO 0901 Melatonin 5 MG AT BEDTIME 11/04 2200 AC 11/08 PO 2130 Nystatin 1 ENEDINA BID 11/08 2200 AC 11/09 TOP 0901 Phenazopyridine HCl 100 MG BID PRN 11/06 0915 AC 11/07 PO 0139 Potassium Chloride 40 MEQ ONCE ONE 11/09 1445 DC PO 11/09 1446 Tamsulosin HCl 0.4 MG AT BEDTIME 11/06 2200 AC 11/08 PO 2131 Warfarin Sodium 5 MG COUMADIN 1700 ONE 11/09 1700 AC PO 11/09 1701 Warfarin Sodium 5 MG COUMADIN 1700 ONE 11/08 1700 DC 11/08 PO 11/08 1701 1732 Last 24 Hrs of Lab/Lokesh Results Last 24 Hrs of Labs/Mics: Laboratory Tests 11/09/16 0750: Anion Gap 11, Estimated GFR > 60, BUN/Creatinine Ratio 24.3, PT 13.4 H, INR 1.28 H, CBC w Diff NO MAN DIFF REQ, RBC 3.63 L, MCV 99.8 H, MCH 34.0 H, RDW 13.9, MPV 7.6, Gran % 74.3, Lymphocytes % 15.9 L, Monocytes % 6.9, Eosinophils % 2.5, Basophils % 0.4, Absolute Granulocytes 5.8, Absolute Lymphocytes 1.3, Absolute Monocytes 0.5, Absolute Eosinophils 0.2, Absolute Basophils 0, PUBS MCHC 34.0 Assessment/Plan Assessment: This is a 85-year-old male with past medical history significant for atrial fibrillation on warfarin 5 mg, status post permanent pacemaker placement, insomnia, overactive bladder, hypertension, hypothyroidism presented to [facility] emergency department with chief complaint of fever, dry cough, congestion, shortness of breath on exertion, wheezing for 10 days. Of note patient has been to her primary care doctor On October 10 for fever, cough and chest x-ray was done which showed right sided plural effusion and he was sent home on oral antibiotics-5 days of oral azithromycin. However patient still has ongoing dry cough not associated with any sputum production and lung congestion for 10 days. No relief with antibiotics and cough suppressants. Also complains shortness of breath on exertion associated with wheezing. No orthopnea and paroxysmal nocturnal dyspnea. No chest pain, racing of heart, hemoptysis. He denies any smoking. Vitals on Admission-febrile 102.4, tachycardic 120, respiratory rate 24, blood pressure 120/57, saturating at 93% on 2 L. Pertinent labs on admission-WBC 6.2, H&H normal. BEP normal. INR 1.81. First set of troponins were negative. ProBNP 1070. CXR Small right pleural effusion with increased hazy basilar opacities, right greater than left. This appearance could represent atelectasis or pneumonia. chestCT 1. Tree-in-bud opacities within the right upper lobe suggesting small airways disease. 2. Small to moderate right pleural effusion resulting in compressive atelectasis of the right lower lobe. EKG-paced rhythm, PACs, PVCs, 86 bpm. Problem list 1. Community-acquired pneumonia 2. Acute hypoxic respiratory failure 3. Possible parapneumonic effusion vs transudative effusion 4. Hypothyroidism 5. Hypertension 6. Overactive bladder 7. Atrial fibrillation 8. Insomnia 9. hematuria Community-acquired pneumonia Patient presented with fever 102, dry cough, congested lungs, shortness of breath on exertion, wheezing. Of note he failed outpatient treatment for pneumonia 2 weeks ago. He is not on home oxygen. Denies smoking. Normal leukocyte count. Chest x-ray showed small right-sided pleural effusion with increased hazy basilar opacities atelectasis versus pneumonia. CAT scan chest showed right-sided pleural effusion with compressive atelectasis of right lower lobe. -Admitted to telemetry floor for further monitoring -Monitor vitals every shift -Maintain oxygen saturations above 92% -provide supplemental oxygen -Monitor closely for fever, leukocytosis, worsening shortness of breath. -IV antibiotics ceftriaxone -discontinued -Follow-up blood culture, sputum culture-negative so far -Follow-up urine pneumococcal and streptococcal antigen- negative. -Total respiratory care Acute hypoxic respiratory failure Patient presented with shortness of breath on exertion. Of note patient is not on oxygen at home. He desaturated to 84-86% on room air requiring supplemental oxygen. Currently saturating at 94% on 2 L. Respiratory rate greater than 20 on admission. -Continue supplemental oxygen -Maintain saturations above 90% -Total respiratory care Possible parapneumonic effusion vs transudative effusion Patient was treated for community-acquired pneumonia couple of weeks ago. However he failed outpatient treatment for pneumonia. Still complains of cough, congestion, shortness of breath on exertion. High-grade fever 102.. Chest x-ray and CAT scan suggestive of right-sided pleural effusion -Possible parapneumonic effusion -Empyema is less likely, no WBC count elevation. -Diagnostic and therapeutic thoracocentesis-fluid Suggestive of transudate effusion. With PH 7.35, total protein fluid/serum less than 0.5, LDH fluid/ serum less than 0.6. -Cardiology was consulted- regarding transudate effusion. Patient was started on Lasix 40 mg daily. * Lasix was discontinued as there are no signs of congestive heart failure and blood pressuresborderline -Echocardiogram - Moderate concentric left ventricular hypertrophy. Normal left ventricular ejection fraction visually estimated at >65. Ruled out pulmonary embolism As the patient has transudate pleural effusion and there are no signs of heart failure, liver failure, renal failure, there is suspicion for pulmonary embolism as he has short of breath, cough, hypoxia, elevated D dimers. VQ scan was done which showed low probability of pulmonary embolus. Hematuria During his hospitalization he developed gross hematuria and dysuria. He has no history of urinary tract infections, prostatitis, or prostate cancer. He had been placed with a Butler catheter yesterday 11/05/16, however upon standing, it fell out and the patient denied pulling it out. Ofnote, He is on warfarin for his atrial fibrillation history and he does have a pacemaker in place. * His urine culture was negative and his renal/bladder ultrasound was normal. * There was difficulty in placing a catheter again. * Patient been to OR on 11/06/2016 for cystoscopy, fulguration of prostate and bladder trigone and bladder neck for gross hematuria. * sTarted on Flomax 0.4 mg daily at bedtime. * Warfarin restarted as there is no more hematuria * Morphine and dilaudid whenever necessary for pain Findings on cystoscopy: bleeding from prostatic fossa and bladder trigone and bladder neck. Enlarged prostate with no median lobe but lateral kissing lobes. No bladder lesions or tumors. Hypothyroidism Continue home dose of levothyroxine 50 g daily Hypertension Continue home dose of 40 mg lisinopril daily Overactive bladder On oxybutynin- discontinued in the hospital Atrial fibrillation Status post pacemaker placement Warfarin 5 mg daily Insomnia Takes zolfresh 10 mg daily at home Problem List: 1. Community acquired pneumonia 2. Hematuria 3. Hypoxia Pain Ratin Pain Location: urethral pain Pain Goal: Remain pain free Pain Plan: tylinol dilaudid Tomorrow's Labs & Rationales: inr - dosing coumadin Consulting Request: Consulting Specialty: Cardiology
[2016-11-09 16:33] VITALS: BP 118/50
[2016-11-09 23:38] VITALS: BP 110/60
[2016-11-10 08:20] LABS: PT 15.5 SEC (9.4-12.5)
--- NOTE | 2016-11-10 08:20 | PN- Pulmonary ---
Subjective HPI/Critical Care Issues: Patient continues to feel poorly we though shortness of breath is improved she remains oxygen dependent Objective Current Medications: Current Medications Sig/Emily Start time Last Medication Dose Route Stop Time Status Admin Acetaminophen 650 MG .STK-MED ONE 11/09 2038 DC PO 11/09 2040 Acetaminophen 650 MG .STK-MED ONE 11/09 1103 DC PO 11/09 1104 Acetaminophen 650 MG Q8P PRN 11/02 1545 AC 11/02 PO 2249 Acetaminophen 650 MG Q8P PRN 11/02 1445 AC 11/09 PO 2043 Albuterol Sulfate 3 ML BID 11/02 2200 AC 11/09 INH 2007 Artificial Tears 2 GTT 4 TIMES/DAY 11/09 0759 AC 11/09 OPH 2132 Benzonatate 100 MG TID 11/02 1144 AC 11/09 PO 2131 Docusate Sodium 100 MG BID 11/09 2200 AC 11/09 PO 2131 Guaifenesin 10 ML .STK-MED ONE 11/09 1859 DC PO 11/09 1900 Guaifenesin 10 ML Q4P PRN 11/08 0915 AC 11/10 PO 0341 Guaifenesin 600 MG Q12 11/02 1140 AC 11/09 PO 2131 Levothyroxine Sodium 0.05 MG DAILY AC 11/03 0700 AC 11/10 PO 0637 Lidocaine 1 ENEDINA TID PRN 11/06 1515 AC 11/09 TOP 2141 Lisinopril 40 MG DAILY 11/02 1245 AC 11/09 PO 0901 Melatonin 5 MG AT BEDTIME 11/04 2200 AC 11/09 PO 2131 Nystatin 1 ENEDINA BID 11/08 2200 AC 11/09 TOP 2133 Phenazopyridine HCl 100 MG BID PRN 11/06 0915 AC 11/07 PO 0139 Polyethylene Glycol 17 GM DAILY 11/09 2100 AC 11/09 PO 2232 Potassium Chloride 40 MEQ ONCE ONE 11/09 1445 DC 11/09 PO 11/09 1446 1620 Senna/Docusate Sodium 1 TAB BID 11/09 2200 AC 11/09 PO 2232 Tamsulosin HCl 0.4 MG AT BEDTIME 11/06 2200 AC 11/09 PO 2132 Warfarin Sodium 5 MG COUMADIN 1700 ONE 11/09 1700 DC 11/09 PO 11/09 1701 1620 Vital Signs & I&O Last 24 Hrs of Vitals and I&O: Vital Signs Date Time Temp Pulse Resp B/P Pulse O2 O2 Flow FiO2 Ox Delivery Rate 11/10 0000 Nasal 2.0L Cannula 11/09 2338 97.9 62 20 110/60 94 Nasal 2.0L Cannula 11/09 2132 62 110/62 11/09 2011 95 Nasal 2.0L Cannula 11/09 1633 97.8 66 20 118/50 90 Nasal 2.0L Cannula 11/09 1600 94 Nasal 2.0L Cannula 11/09 1135 93 Nasal 2.0L Cannula 11/09 1112 Nasal 2.0L Cannula 11/09 0901 134/60 11/09 0830 97.9 70 18 110/60 92 Nasal 2.0L Cannula Intake & Output 11/10 1600 11/10 0800 11/10 0000 Intake Total 200 480 Output Total Balance 200 480 Intake, Oral 200 480 Oxygen saturation on 2 L 94% exam of his chest shows diminished breath sounds at the bases there are no wheezes cardiac exam shows regular S1 and S2 without murmurs Impression/Plan Impression/Plan Impression/Plan: 85-year-old gentleman with transudative pleural effusion . Evaluation for pulmonary embolism is unrevealing. explanation for ongoing oxygen needs should be further pursued with outpatient pulmonary function tests Recommendations: Ensure potassium remains approximately 4. Taper FiO2 his saturations allow but he will need oxygen at discharge. Outpatient evaluation for pulmonary function tests and evaluation for sleep apnea.
[2016-11-10 08:30] VITALS: BP 122/70
--- NOTE | 2016-11-10 10:04 | PN- Att Addend ---
Attending Addendum Attending Brief Note Overall patient feels better although he still has the cough. He is worried about his constipation. On exam he is afebrile, pressures on the low side at 110/60, heart rate is 78 and he is breathing at 16-18 his O2 sat is 90% on 2 L. His lungs have decreased breath sounds with some coarse crackles, heart is S1-S2 irregular with a soft systolic murmur, abdomen is soft nontender and he has no edema. His INR is pending. This an 86-year-old with A. fib on Coumadin, moderate aortic stenosis treated for a transudative pleural effusion, hematuria and prostatic bleeding. I have noted Cardiology's recommendations of the Lasix. At this point his pressure is still on the low side so I won't restart it here but make it clear to start it at [facility] on discharge. We are dosing his Coumadin for his A. fib. His VQ scan was very low probability so we are not worried about a PE. And he will need ongoing pulmonary follow-up for workup of his transudative effusion.
--- NOTE | 2016-11-10 13:42 | PN- Housestaff ---
Subjective Follow-up For: 1. Community-acquired pneumonia 2. Acute hypoxic respiratory failure 3. transudative effusion 4. Hematuria and painful urination s/p cystoscopy Complaints: pain scale (0-10) Tele-Events Since Last Visit: discontinued telemetry monitoring Subjective: Patient was seen and examined this morning. He is alert awake and oriented to time place and person. No acute events monitored overnight. He remained afebrile. He does report MILD shortness of breath on exertion, dry cough, -however subsiding since admission. No gross hematuria this morning. Urine was clear. Urethral pain came down. Continuous bladder irrigation was stopped. Foleys catheter was removed. Denied any chest pain or pressure, racing of heart, headache, dizziness or lightheadedness. Vitals remained afebrile. Heart rate 78, respiratory rate 18, blood pressure 110/68, saturating at 90% on 2L oxygen discontinued telemetry monitoring. constipated=- received senna, miralax,dulcolax suppository. Review of Systems Constitutional: Denies: see HPI. Objective Last 24 Hrs of Vital Signs/I&O Vital Signs Date Time Temp Pulse Resp B/P Pulse O2 O2 Flow FiO2 Ox Delivery Rate 11/10 0905 60 122/70 11/10 0830 97.8 60 20 122/70 96 Nasal 2.0L Cannula 11/10 0830 94 Nasal 2.0L Cannula 11/10 0800 Nasal 2.0L Cannula 11/10 0000 Nasal 2.0L Cannula 11/09 2338 97.9 62 20 110/60 94 Nasal 2.0L Cannula 11/09 2132 62 110/62 11/09 2010 95 Nasal 2.0L Cannula 11/09 1633 97.8 66 20 118/50 90 Nasal 2.0L Cannula 11/09 1600 94 Nasal 2.0L Cannula Intake & Output 11/10 1600 11/10 0800 11/10 0000 Intake Total 200 480 Output Total Balance 200 480 Intake, Oral 200 480 Physical Exam General Appearance: Alert, Oriented X3, Cooperative, No Acute Distress Skin: No Rashes, No Breakdown HEENT: Atraumatic, Mucous Membr. moist/pink Neck: Supple, No JVD Lymphatic: Cervical nl Cardiovascular: Normal S1, Normal S2 Lungs: dec bs with crackles Abdomen: Normal Bowel Sounds, Soft, No Tenderness Extremities: No Clubbing, No Cyanosis, No Edema Vascular: Normal Pulses Current Medications: Current Medications Sig/Emily Start time Last Medication Dose Route Stop Time Status Admin Acetaminophen 650 MG .STK-MED ONE 11/09 2039 DC PO 11/09 2040 Acetaminophen 650 MG Q8P PRN 11/02 1545 AC 11/02 PO 2249 Acetaminophen 650 MG Q8P PRN 11/02 1445 AC 11/10 PO 1150 Albuterol Sulfate 3 ML BID 11/02 2200 AC 11/10 INH 0827 Artificial Tears 2 GTT 4 TIMES/DAY 11/09 0759 AC 11/10 OPH 0905 Benzonatate 100 MG TID 11/02 1144 AC 11/10 PO 0905 Bisacodyl 10 MG ONCE ONE 11/10 1315 DC 11/10 MN 11/10 1316 1309 Bisacodyl 5 MG DAILY 11/10 1000 AC 11/10 PO 1146 Docusate Sodium 100 MG BID 11/09 2200 AC 11/10 PO 0905 Guaifenesin 10 ML .STK-MED ONE 11/10 0338 DC PO 11/10 0339 Guaifenesin 10 ML .STK-MED ONE 11/09 1859 DC PO 11/09 1900 Guaifenesin 10 ML Q4P PRN 11/08 0915 AC 11/10 PO 1150 Guaifenesin 600 MG Q12 11/02 1140 AC 11/10 PO 0905 Levothyroxine Sodium 0.05 MG DAILY AC 11/03 0700 AC 11/10 PO 0637 Lidocaine 1 ENEDINA TID PRN 11/06 1515 AC 11/09 TOP 2141 Lisinopril 40 MG DAILY 11/02 1245 AC 11/10 PO 0905 Melatonin 5 MG AT BEDTIME 11/04 2200 AC 11/09 PO 2131 Nystatin 1 ENEDINA BID 11/08 2200 AC 11/10 TOP 0907 Patient Medication 1 ED .STK-MED ONE 11/10 1348 DC Teaching ED 11/10 1349 Phenazopyridine HCl 100 MG BID PRN 11/06 0915 AC 11/10 PO 1146 Polyethylene Glycol 17 GM DAILY 11/09 2100 AC 11/10 PO 0905 Senna/Docusate Sodium 1 TAB BID 11/09 2200 AC 11/10 PO 0905 Tamsulosin HCl 0.4 MG AT BEDTIME 11/06 2200 AC 11/09 PO 2132 Warfarin Sodium 5 MG COUMADIN 1700 ONE 11/10 1700 AC PO 11/10 1701 Warfarin Sodium 5 MG COUMADIN 1700 ONE 11/09 1700 DC 11/09 PO 11/09 1701 1620 Last 24 Hrs of Lab/Lokesh Results Last 24 Hrs of Labs/Mics: Laboratory Tests 11/10/16 0709: PT 15.5 H, INR 1.48 H Assessment/Plan Assessment: This is a 85-year-old male with past medical history significant for atrial fibrillation on warfarin 5 mg, status post permanent pacemaker placement, insomnia, overactive bladder, hypertension, hypothyroidism presented to [facility] emergency department with chief complaint of fever, dry cough, congestion, shortness of breath on exertion, wheezing for 10 days. Of note patient has been to her primary care doctor On October 10 for fever, cough and chest x-ray was done which showed right sided plural effusion and he was sent home on oral antibiotics-5 days of oral azithromycin. However patient still has ongoing dry cough not associated with any sputum production and lung congestion for 10 days. No relief with antibiotics and cough suppressants. Also complains shortness of breath on exertion associated with wheezing. No orthopnea and paroxysmal nocturnal dyspnea. No chest pain, racing of heart, hemoptysis. He denies any smoking. Vitals on Admission-febrile 102.4, tachycardic 120, respiratory rate 24, blood pressure 120/57, saturating at 93% on 2 L. Pertinent labs on admission-WBC 6.2, H&H normal. BEP normal. INR 1.81. First set of troponins were negative. ProBNP 1070. CXR Small right pleural effusion with increased hazy basilar opacities, right greater than left. This appearance could represent atelectasis or pneumonia. chestCT 1. Tree-in-bud opacities within the right upper lobe suggesting small airways disease. 2. Small to moderate right pleural effusion resulting in compressive atelectasis of the right lower lobe. EKG-paced rhythm, PACs, PVCs, 86 bpm. Problem list 1. Community-acquired pneumonia 2. Acute hypoxic respiratory failure 3. Possible parapneumonic effusion vs transudative effusion 4. Hypothyroidism 5. Hypertension 6. Overactive bladder 7. Atrial fibrillation 8. Insomnia 9. hematuria Community-acquired pneumonia Patient presented with fever 102, dry cough, congested lungs, shortness of breath on exertion, wheezing. Of note he failed outpatient treatment for pneumonia 2 weeks ago. He is not on home oxygen. Denies smoking. Normal leukocyte count. Chest x-ray showed small right-sided pleural effusion with increased hazy basilar opacities atelectasis versus pneumonia. CAT scan chest showed right-sided pleural effusion with compressive atelectasis of right lower lobe. -Admitted to telemetry floor for further monitoring -Monitor vitals every shift -Maintain oxygen saturations above 92% -provide supplemental oxygen -Monitor closely for fever, leukocytosis, worsening shortness of breath. -IV antibiotics ceftriaxone -discontinued -Follow-up blood culture, sputum culture-negative so far -Follow-up urine pneumococcal and streptococcal antigen- negative. -Total respiratory care Acute hypoxic respiratory failure Patient presented with shortness of breath on exertion. Of note patient is not on oxygen at home. He desaturated to 84-86% on room air requiring supplemental oxygen. Currently saturating at 94% on 2 L. Respiratory rate greater than 20 on admission. -Continue supplemental oxygen -Maintain saturations above 90% -Total respiratory care Possible parapneumonic effusion vs transudative effusion Patient was treated for community-acquired pneumonia couple of weeks ago. However he failed outpatient treatment for pneumonia. Still complains of cough, congestion, shortness of breath on exertion. High-grade fever 102.. Chest x-ray and CAT scan suggestive of right-sided pleural effusion -Possible parapneumonic effusion -Empyema is less likely, no WBC count elevation. -Diagnostic and therapeutic thoracocentesis-fluid Suggestive of transudate effusion. With PH 7.35, total protein fluid/serum less than 0.5, LDH fluid/ serum less than 0.6. -Cardiology was consulted- regarding transudate effusion. Patient was started on Lasix 40 mg daily. * Lasix was discontinued as there are no signs of congestive heart failure and blood pressures were borderline -Echocardiogram - Moderate concentric left ventricular hypertrophy. Normal left ventricular ejection fraction visually estimated at >65. Ruled out pulmonary embolism As the patient has transudate pleural effusion and there are no signs of heart failure, liver failure, renal failure, there is suspicion for pulmonary embolism as he has short of breath, cough, hypoxia, elevated D dimers. VQ scan was done which showed low probability of pulmonary embolus. Hematuria During his hospitalization he developed gross hematuria and dysuria. He has no history of urinary tract infections, prostatitis, or prostate cancer. He had been placed with a Butler catheter yesterday 11/05/16, however upon standing, it fell out and the patient denied pulling it out. Ofnote, He is on warfarin for his atrial fibrillation history and he does have a pacemaker in place. * His urine culture was negative and his renal/bladder ultrasound was normal. * There was difficulty in placing a catheter again. * Patient been to OR on 11/06/2016 for cystoscopy, fulguration of prostate and bladder trigone and bladder neck for gross hematuria. * sTarted on Flomax 0.4 mg daily at bedtime. * Warfarin restarted as there is no more hematuria * Morphine and dilaudid whenever necessary for pain Findings on cystoscopy: bleeding from prostatic fossa and bladder trigone and bladder neck. Enlarged prostate with no median lobe but lateral kissing lobes. No bladder lesions or tumors. Hypothyroidism Continue home dose of levothyroxine 50 g daily Hypertension Continue home dose of 40 mg lisinopril daily Overactive bladder On oxybutynin- discontinued in the hospital Atrial fibrillation Status post pacemaker placement Warfarin 5 mg daily based on inr Insomnia Takes zolfresh 10 mg daily at home constipation' on bowel regimen senna , miralax and dulcolax PRN Problem List: 1. Pneumonia 2. Hypoxia 3. Hematuria Pain Ratin Pain Location: none Pain Goal: Remain pain free Pain Plan: olivier mendenhall Tomorrow's Labs & Rationales: inr- to dose coumadin Consulting Request: Consulting Specialty: Cardiology
[2016-11-10 16:18] VITALS: BP 115/68
[2016-11-10 18:01] VITALS: BP 115/68
== END 2016-11-10 18:40 | DRG 984 ==
LOC: ERH 08:58 → 2NB 11:49 → ERHI 11:49 → 1NO 11:49 → ERHI 15:05 → 1NO 11-03 15:42 → 2NB 11-08 20:32
PROVIDERS: Internal Medicine; Physician Assistant Surgical; Student in an Organized Health Care Education/Training Program; ADMIT Hospitalist
PROC: 0W993ZX Drainage of Right Pleural Cavity, Percutaneous Approach, Diagnostic (ICD-10-PCS; 2016-11-03)
PROC: 0T5B8ZZ Destruction of Bladder, Via Natural or Artificial Opening Endoscopic (ICD-10-PCS; principal; 2016-11-06)
PROC: 0TCB8ZZ Extirpation of Matter from Bladder, Via Natural or Artificial Opening Endoscopic (ICD-10-PCS; principal; 2016-11-06)
PROC: 0V508ZZ Destruction of Prostate, Via Natural or Artificial Opening Endoscopic (ICD-10-PCS; principal; 2016-11-06)
PROC: 0T5C8ZZ Destruction of Bladder Neck, Via Natural or Artificial Opening Endoscopic (ICD-10-PCS; principal; 2016-11-06)
DX: J18.9 Pneumonia, unspecified organism (principal); J96.21 Acute and chronic respiratory failure with hypoxia; J90 Pleural effusion, not elsewhere classified; E87.3 Alkalosis; I48.2 Chronic atrial fibrillation; E86.0 Dehydration; I27.2 Other secondary pulmonary hypertension; I10 Essential (primary) hypertension; N32.89 Other specified disorders of bladder; R31.0 Gross hematuria; N32.81 Overactive bladder; I35.0 Nonrheumatic aortic (valve) stenosis; E87.6 Hypokalemia; N40.0 Benign prostatic hyperplasia without lower urinary tract symptoms; E03.9 Hypothyroidism, unspecified; Z79.01 Long term (current) use of anticoagulants; Z87.891 Personal history of nicotine dependence; Z95.0 Presence of cardiac pacemaker
CPT/HCPCS: 1NP; 2NBSP; 87075; ERO; 36415; 76775; 78582; 81001; 81003; 82436; 87040; 87070; 87086; 87449; 87450; 87804; 87804-59; 88305; 93005; 93010; 93306; 96361; 96365; 96375; 97110-GO; 97116-GO; 97162-GP; 97530-GO; 99291; A9540; A9558; G0480; J0456; J0696; J0744; J1120; J1170; J1940; J2930; J7040